=== PATIENT | female | born 1995 | race Caucasian/White ===

== ENCOUNTER 2021-02-06 16:47 | Inpatient (IN) | payer SELFPAY ==
[2021-02-06 16:56] VITALS: BP 133/83; PULSE 96; RESP 17; TEMP 37; O2SAT 98; BMI 20.9
[2021-02-06 17:43] LABS: Basophils # 0.1 10^3/uL (0.0-0.1); Basophils % 0.8 %; Eosinophils # 0.2 10^3/uL (0.0-0.8); Eosinophils % 1.8 %; Hematocrit 41.3 % (37.0-47.0); Lymphocytes # 1.4 10^3/uL (0.8-4.8); Lymphocytes % 17.2 %; Mean Corpuscular HGB Conc 33.9 g/dL (30.0-36.0); Mean Corpuscular Hemoglobin 31.6 pg (28.0-34.0); Mean Corpuscular Volume 93.2 fL (81-99); Monocytes # 0.7 10^3/uL (0.2-0.9); Monocytes % 8.1 %; Neutrophils # 5.94 10^3/uL (1.8-7.7); Neutrophils % 71.9 %; Nucleated Red Blood Cells % 0 %; Platelet Count 219 10^3/cmm (130-400); Red Blood Count 4.43 10^6/uL (4.1-5.3); Red Cell Distribution Width 11.3 % (12.1-15.1); White Blood Count 8.3 10^3/uL (4.0-10.0)
[2021-02-06 18:13] LABS: Alanine Aminotransferase 14 U/L (0-33); Albumin Level 4.8 g/dL (3.5-5.2); Alkaline Phosphatase 51 IU/L (35-105); Aspartate Amino Transferase 19 U/L (0-32); Blood Urea Nitrogen 14 mg/dL (6-20); Calcium 9.2 mg/dL (8.5-10.5); Carbon Dioxide 28 mmol/L (22-29); Chloride 99 mmol/L (98-107); Globulin 2.8 g/dL (1.3-4.6); Glomerular Filtration Rate 101.1 mL/min (90-130); Glucose 87 mg/dL (65-115); Osmolality Calculated 286 mOsm/kg (285-295); Sodium 138 mmol/L (136-145); Thyroid Stimulating Hormone 1.05 uIU/mL (0.27-4.20); Total Bilirubin 2.1 mg/dL (0.15-1.2); Total Protein 7.6 g/dL (6.6-8.7)
[2021-02-06 18:15] LABS: Acetaminophen < 5.0 ug/mL (10-30); Alcohol Level < 10 mg/dL (0-10); Salicylate < 0.3 mg/dL (3-10)
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
[2021-02-06 20:01] LABS: Add Urine Microscopic? NO; Charge for UA Resulting for Rev
[2021-02-06 20:02] LABS: Urine Appearance Clear (CLEAR); Urine Color Yellow (Yellow)
[2021-02-06 20:03] LABS: Bilirubin Urine Neg (Negative); Blood Urine Neg (Negative); Glucose Urine UA Norm (Normal); HCG Qualitative Urine. Negative (Negative); Ketones Urine 1+ (Negative); Leukocyte Esterase Urine Negative (Negative); Nitrate Urine Negative (Negative); Protein Urine Neg (Negative); Specific Gravity, Urine 1.005 (1.005-1.030); Urobilinogen Urine Norm (Negative); pH Urine 7 (5-7)
[2021-02-06 20:52] VITALS: BP 127/79; PULSE 83; RESP 16; TEMP 36.8; O2SAT 100
[2021-02-06 21:18] VITALS: BP 128/89; PULSE 83; RESP 17; TEMP 36.6; O2SAT 100
[2021-02-06 22:00] VITALS: BP 128/89; PULSE 83; RESP 17; TEMP 36.6; O2SAT 100
[2021-02-06] MEDS: acetaminophen 325 mg Tablet 650 MG PO (22:34)
[2021-02-06 22:53] LABS: Amphetamines Screen Urine Negative (Negative); Barbiturates Screen Urine Negative (Negative); Benzodiazepines Screen Urine Negative (Negative); Cocaine Screen Urine Negative (Negative); Opiate Screen Urine Negative (Negative); PCP Screen Urine Negative (Negative); THC Screen Urine Negative (Negative)
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
--- NOTE | 2021-02-07 04:45 | PC.NURSE ---
bEHAVIOR PT CALLED HER , BECAME TEARFUL, ENDED THE CALL. PT REQUESTED TYLENOL FOR A MILD HEADACHE, MED NURSE NOTIFIED. SHE RECEIVED MEDICATION ACCORDINGLY. SHE WENT TO BED AND SLEPT SOUNDLY ALL EVENING.
[2021-02-07 06:00] VITALS: BP 104/64; PULSE 78; RESP 15; TEMP 36.8; O2SAT 98
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
[2021-02-07 12:48] VITALS: O2SAT 98
[2021-02-07 12:51] VITALS: PULSE 79; RESP 16; O2SAT 98
[2021-02-07 14:00] VITALS: BP 113/72; PULSE 77; RESP 16; TEMP 37.6; O2SAT 99
[2021-02-07 19:56] VITALS: BP 110/72; PULSE 84; RESP 18; TEMP 37.2; O2SAT 98
[2021-02-07 22:50] VITALS: PULSE 71; RESP 18; O2SAT 98
[2021-02-08 06:00] VITALS: BP 109/67; PULSE 75; RESP 16; TEMP 36.8; O2SAT 98
[2021-02-08 09:33] VITALS: PULSE 85; RESP 18; O2SAT 99
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
[2021-02-08 09:56] VITALS: BP 109/67; PULSE 85; RESP 18; TEMP 37.1; O2SAT 99
== END 2021-02-08 10:12 | disposition home or self-care (01) | DRG 882 ==
LOC: ER 19:48 → NP 20:25
PROVIDERS: Admitting Provider Psychiatry & Neurology Psychiatry; Emergency Provider Family Medicine; Visit Provider Psychiatry & Neurology Psychiatry
DX: F43.25 Adjustment disorder with mixed disturbance of emotions and conduct (principal); R45.851 Suicidal ideations; F12.90 Cannabis use, unspecified, uncomplicated; Z62.810 Personal history of physical and sexual abuse in childhood; Z81.8 Family history of other mental and behavioral disorders; F10.10 Alcohol abuse, uncomplicated; Z63.0 Problems in relationship with spouse or partner
CPT/HCPCS: 80053; 80306; 80307; 81003; 81025; 84443; 85025; 94664; 99285

== ENCOUNTER 2021-10-02 17:01 | Emergency (ER) | payer MEDICAID, SELFPAY ==
[2021-10-02 17:11] VITALS: BP 138/74; PULSE 86; RESP 16; TEMP 36.8; O2SAT 99; BMI 20.9
--- NOTE | 2021-10-02 17:26 | W.ED.ABDPA2 ---
HPI - Abdominal Pain General: Chief Complaint: Abdominal Pain Stated Complaint: Possible UTI with back and stomach pain Time Seen by Provider: 10/02/21 17:25 Source: patient Mode of arrival: ambulatory Limitations: no limitations History of Present Illness: Patient is a 25-year-old female presents to ED today concerned she could have a UTI. Patient tells me several days ago she began having urinary urgency and hesitancy as well as suprapubic pressure. Patient states she began taking Azo but states her symptoms have not improved. She now has some lower left-sided back pain. Patient has not had any fevers. She admits to chronic intermittent nausea and vomiting that she has had for several months now-has not seen PCP for this-has not had any recent vomiting. She has not noticed any changes to her bowel movements. Patient has had a history of tubal ligation for sterilization purposes. Patient has not had any vaginal bleeding or vaginal discharge. MD elicited complaint: abdominal pain Onset (ago): day(s) Location: Suprapubic Quality: fullness Radiation: back Exacerbating factors: other (urinating) Relieving factors: nothing Associated Symptoms: Reports nausea and vomiting; Denies change in bowel habits, chills, dysuria, fever(s), hematochezia, hematemesis and melena Related Data: Patient : No Review of Systems Const: Denies: fever(s), chills, body aches, fatigue or malaise Card: Denies: chest pain Resp: Denies: dyspnea GI: Reports: abdominal pain, nausea and vomiting; Denies: hematemesis, change in bowel habits, hematochezia or melena : Reports: flank pain, difficulty voiding, urinary urgency and urinary hesitancy; Denies: dysuria, dribbling, oliguria, urinary incontinence, vaginal odor, vaginal bleeding or vaginal discharge Musc: Reports: back pain; Denies: neck pain, extremity pain or joint pain Skin/Breast: Denies: rash Neuro: Denies: headache(s), numbness in extremities, weakness in extremities, sensory changes or dizziness [facility] ED PFSH: Medical History (Updated 10/02/21 @ 18:43 by MICHAEL Macias) Depression Family History Father Bipolar disorder with depression Sister Bipolar disorder with depression Mother Anxiety Depression Social History Alcohol intake: current Alcohol intake frequency: few times a week Alcohol type: beer, wine and hard liquor Desire information about alcohol rehabilitation?: Yes (USING IT TO COPE) Counseling given: Yes (PT NEEDS COPING SKILLS ) Last alcohol use date: 02/05/21 Other details last alcohol use: STARTED DRINKING ON 08/02/20 WHEN HER FATHER Desire information about substance/drug rehabilitation?: No Counseling given: No Adopted: No Caregiver/support person: No Lives independently: Yes Household members: spouse, family and children Housing: House Marital status: Marital status details: HAVING MARITAL ISSUES Number of children: 2 Highest education level completed: High School Graduate service: No Current occupational status: unemployed 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 Pets and animals: No History of recent travel: No Leisure activites: fishing Sexually active: Yes How many partners: 1 Are you practicing safe sex: No ( ) Current gender identity: Female Special shivam needs: No Agree to transfusion: Yes Financial difficulty paying for basics: Hard Physical Exam Const: COMMON NORMALS: no acute distress, average body habitus, patient oriented x3, no limitations, healthy appearing, alert and well nourished Resp: COMMON NORMALS: normal respiratory effort and clear to auscultation bilaterally AUSCULTATION: clear to auscultation bilaterally Cardio: COMMON NORMALS: regular rate and regular rhythm RATE: regular rate RHYTHM: regular rhythm GI: COMMON NORMALS: Normal to inspection, nondistended, normoactive bowel sounds present, Soft to palpation, No hepatosplenomegaly present and no masses INSPECTION: Yes normal to inspection PALPATION: Yes Soft to palpation, Yes Tenderness to palpation present (GI) (lower abdomen-no rigidity or guarding) and Yes No hepatosplenomegaly present : COMMON NORMALS: Yes no CVA tenderness BLADDER/KIDNEY EXAM: Yes no CVA tenderness Back/Pelvis: COMMON NORMALS: no CVA tenderness THORACIC SPINE/UPPER BACK: Yes normal to inspection, Yes thoracic ROM normal and No thoracic spinal tenderness LUMBAR SPINE/LOWER BACK: No lumbar spinal tenderness, Yes paraspinal muscle tenderness and No paraspinal muscle spasm PELVIS: Yes buttocks normal SACROILIAC JOINTS: Yes SI joints normal OTHER: tenderness to L lower back Extremity: COMMON NORMALS: normal to inspection GENERAL: Yes normal exam except as noted Neuro: COMMON NORMALS: patient oriented x3, moves all extremities, no focal motor deficits, no sensory deficits noted and gait normal SENSORIUM/ORIENTATION: Yes alert Skin: COMMON NORMALS: no rashes or lesions noted GENERAL SKIN EXAM: no rashes or lesions noted Course Vital Signs: Vital signs: Vital Signs Temperature 98.3 F 10/02/21 17:11 Pulse Rate 86 10/02/21 17:11 Respiratory Rate 16 10/02/21 17:11 Blood Pressure 138/74 10/02/21 17:11 Pulse Oximetry 99 10/02/21 17:11 MDM - Abdominal Pain Medical Decision Making Patient is a 25-year-old female here for concerns of urinary symptoms and concern for UTI. Patient's vital signs are normal. White count is 13.4. Remainder of blood work is unremarkable. UA does show findings consistent with acute cystitis. Patient states she is starting to develop some left-sided back pains. At this point we will go ahead and treat her for possible early pyelonephritis. She was given IV Rocephin here and will be sent home with ciprofloxacin twice daily x7 days. Strict return ED precautions verbally given to patient. Lab Data : 10/02/21 17:40 10/02/21 17:40 Labs/Radiology: Laboratory Results WBC 13.4 10^3/uL (4.0-10.0) H 10/02/21 17:40 RBC 4.33 10^6/uL (4.1-5.3) 10/02/21 17:40 Hgb 13.8 g/dL (11.5-15.3) 10/02/21 17:40 Hct 40.0 % (37.0-47.0) 10/02/21 17:40 MCV 92.4 fl (81-99) 10/02/21 17:40 MCH 31.9 pg (28.0-34.0) 10/02/21 17:40 MCHC 34.5 g/dL (30.0-36.0) 10/02/21 17:40 RDW 11.1 % (12.1-15.1) L 10/02/21 17:40 Plt Count 230 10^3/cmm (130-400) 10/02/21 17:40 MPV 11.8 fL (7.4-10.4) H 10/02/21 17:40 Neut % (Auto) 76.5 % 10/02/21 17:40 Lymph % (Auto) 15.1 % 10/02/21 17:40 [place] % (Auto) 6.1 % 10/02/21 17:40 Eos % (Auto) 1.4 % 10/02/21 17:40 Baso % (Auto) 0.5 % 10/02/21 17:40 Neut # (Auto) 10.24 10^3/uL (1.8-7.7) H 10/02/21 17:40 Lymph # (Auto) 2.0 10^3/uL (0.8-4.8) 10/02/21 17:40 [place] # (Auto) 0.8 10^3/uL (0.2-0.9) 10/02/21 17:40 Eos # (Auto) 0.2 10^3/uL (0.0-0.8) 10/02/21 17:40 Baso # (Auto) 0.1 10^3/uL (0.0-0.1) 10/02/21 17:40 Nucleated RBC % (auto) 0 % 10/02/21 17:40 Nucleated RBCs # 0.0 /100WBC 10/02/21 17:40 Sodium 139 mmol/L (136-145) 10/02/21 17:40 Potassium 4.0 mmol/L (3.5-5.1) 10/02/21 17:40 Chloride 101 mmol/L (98-107) 10/02/21 17:40 Carbon Dioxide 25 mmol/L (22-29) 10/02/21 17:40 Anion Gap 17.0 (5-19) 10/02/21 17:40 BUN 12 mg/dL (6-20) 10/02/21 17:40 Creatinine 0.7 mg/dL (0.5-0.9) 10/02/21 17:40 GFR Calculation 101.1 mL/min (90-130) 10/02/21 17:40 Glucose 103 mg/dL (65-115) 10/02/21 17:40 Calculated Osmolality 288 mOsm/kg (285-295) 10/02/21 17:40 Calcium 9.4 mg/dL (8.5-10.5) 10/02/21 17:40 Total Bilirubin 1.8 mg/dL (0.15-1.2) H 10/02/21 17:40 AST 20 U/L (0-32) 10/02/21 17:40 ALT 14 U/L (0-33) 10/02/21 17:40 Alkaline Phosphatase 55 IU/L (35-105) 10/02/21 17:40 Total Protein 7.3 g/dL (6.6-8.7) 10/02/21 17:40 Albumin 4.8 g/dL (3.5-5.2) 10/02/21 17:40 Globulin 2.5 g/dL (1.3-4.6) 10/02/21 17:40 Lipase 19 U/L (13-60) 10/02/21 17:40 HCG, Qual Negative (Negative) 10/02/21 17:40 Urine Color [place] (Yellow) 10/02/21 17:34 Urine Appearance Cloudy (CLEAR) 10/02/21 17:34 Urine pH 6 (5-7) 10/02/21 17:34 Ur Specific [place] 1.015 (1.005-1.030) 10/02/21 17:34 Urine Protein 3+ (Negative) H 10/02/21 17:34 Urine Glucose (UA) Norm (Normal) 10/02/21 17:34 Urine Ketones Negative (Negative) 10/02/21 17:34 Urine Blood 3+ (Negative) H 10/02/21 17:34 Urine Nitrate Positive (Negative) H 10/02/21 17:34 Urine Bilirubin 2+ (Negative) H 10/02/21 17:34 Urine Urobilinogen 4+ mg/dL (Negative) H 10/02/21 17:34 Ur Leukocyte Esterase 2+ (Negative) H 10/02/21 17:34 Urine RBC Too numerous to cnt /hpf (0-2) H 10/02/21 17:34 Urine WBC Too numerous to cnt /hpf (0-5) H 10/02/21 17:34 Ur Squamous Epith Cells 0-4 /hpf (0-5) H 10/02/21 17:34 Amorphous Sediment Not Reportable 10/02/21 17:34 Urine Bacteria 1+ /hpf (NONE) H 10/02/21 17:34 Discharge Plan Discharge Patient Disposition: Home Clinical Impression: UTI (urinary tract infection) Qualifiers: Urinary tract infection type: acute cystitis Hematuria presence: with hematuria Qualified Code(s): N30.01 - Acute cystitis with hematuria Condition: Stable Prescriptions: New Cipro 500 mg tablet 500 mg PO Q12H Qty: 14 0RF No Action magnesium 250 mg Tablet 250 mg PO DAILY 0RF ProAir HFA 90 mcg/actuation Hfa Aerosol Inhaler 2 puff INHALATION Q6H PRN (Reason: ASTHMA) 0RF Label Comments: HAS NOT NEEDED THIS SINCE OCTOBER 2019 FOR HER ASTHMA Discharge Orders: Discharge ED (Routine); Ordered 10/02/21 Ordered By: Fanta Campbell Patient Instructions: Urinary Tract Infection in Women (DC) Activity Restrictions/Additional Instructions: You need to start antibiotics immediately. You may continue Azo as needed for burning. Please drink plenty of fluids. You need to return to the emergency department for worsening pain, severe flank pain, repetitive episodes of vomiting, inability to hold down your antibiotics, fevers greater than 100.4, generally feeling unwell, or any other concerns you may have. I hope you begin to feel better soon. Coding Level of Care Code ED Principal Technical Writer for [employer] Exam Comprehensive
[2021-10-02 18:04] LABS: Basophils # 0.1 10^3/uL (0.0-0.1); Basophils % 0.5 %; Eosinophils # 0.2 10^3/uL (0.0-0.8); Eosinophils % 1.4 %; Hemoglobin 13.8 g/dL (11.5-15.3); Lymphocytes % 15.1 %; Mean Corpuscular HGB Conc 34.5 g/dL (30.0-36.0); Mean Corpuscular Hemoglobin 31.9 pg (28.0-34.0); Mean Corpuscular Volume 92.4 fl (81-99); Mean Platelet Volume 11.8 fL (7.4-10.4); Monocytes # 0.8 10^3/uL (0.2-0.9); Monocytes % 6.1 %; Neutrophils # 10.24 10^3/uL (1.8-7.7); Neutrophils % 76.5 %; Nucleated Red Blood Cells % 0 %; Platelet Count 230 10^3/cmm (130-400); Red Blood Count 4.33 10^6/uL (4.1-5.3); Red Cell Distribution Width 11.1 % (12.1-15.1); White Blood Count 13.4 10^3/uL (4.0-10.0)
[2021-10-02 18:16] LABS: Bilirubin Urine 2+ (Negative); Blood Urine 3+ (Negative); Glucose Urine UA Norm (Normal); Ketones Urine Negative (Negative); Leukocyte Esterase Urine 2+ (Negative); Nitrate Urine Positive (Negative); Protein Urine 3+ (Negative); Specific Gravity, Urine 1.015 (1.005-1.030); Urine Appearance Cloudy (CLEAR); Urine Color Orange (Yellow); Urobilinogen Urine 4+ mg/dL (Negative); pH Urine 6 (5-7)
[2021-10-02 18:16] LABS: HCG, Serum Qual Negative (Negative)
[2021-10-02 18:17] LABS: Add Urine Culture? Yes; Add Urine Microscopic? YES; Bacteria Urine 1+ /hpf; RBC Urine TOO NUMEROUS TO CNT /hpf (0-2); Squamous Epithelial Cell Urine 0-4 /hpf (0-5); WBC Urine TOO NUMEROUS TO CNT /hpf (0-5)
[2021-10-02 18:33] LABS: Alanine Aminotransferase 14 U/L (0-33); Albumin Level 4.8 g/dL (3.5-5.2); Alkaline Phosphatase 55 IU/L (35-105); Aspartate Amino Transferase 20 U/L (0-32); Blood Urea Nitrogen 12 mg/dL (6-20); Calcium 9.4 mg/dL (8.5-10.5); Carbon Dioxide 25 mmol/L (22-29); Chloride 101 mmol/L (98-107); Globulin 2.5 g/dL (1.3-4.6); Glomerular Filtration Rate 101.1 mL/min (90-130); Glucose 103 mg/dL (65-115); Lipase 19 U/L (13-60); Osmolality Calculated 288 mOsm/kg (285-295); Sodium 139 mmol/L (136-145); Total Bilirubin 1.8 mg/dL (0.15-1.2); Total Protein 7.3 g/dL (6.6-8.7)
[2021-10-02] MEDS: cefTRIAXone 1,000 MG in sodium chloride 0.9% (plus) 50 ML 100 MG IV (18:44)
[2021-10-02 19:24] VITALS: BP 105/71; PULSE 71; RESP 16; O2SAT 100
== END 2021-10-02 19:25 | disposition home or self-care (01) ==
PROVIDERS: Emergency Provider Physician Assistant
DX: N30.01 Acute cystitis with hematuria (principal)
CPT/HCPCS: 80053; 81001; 83690; 84703; 85025; 87077; 87086; 87186; 96365; 99284; J0696

== ENCOUNTER 2021-11-09 13:49 | Inpatient (IN) | payer MEDICAID, SELFPAY ==
[2021-11-09] VITALS (16 sets, daily range): BP systolic 96–128; BP diastolic 52–81; PULSE 94–127; RESP 14–24; TEMP 37.5–38.7; O2SAT 90–100; BMI 19.2; BMI 20.9
--- NOTE | 2021-11-09 13:53 | ED_ITS ---
HPI - Syncope General: Chief Complaint: Weakness Stated Complaint: NEAR SYNCOPE Time Seen by Provider: 11/09/21 13:52 History of Present Illness: Ms. 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 She reports symptom onset approximately 10 AM today and was subacute. She describes feeling shakes, stiffness, muscle spasms, and rapid heart rate. She endorses associated mild confusion though no other focal deficits. She notes feeling marked unwellness. Intensity symptoms is moderate to severe and has persisted. She does have sick contacts with flu but denies respiratory symptoms herself. Denies similar episodes of severe in the past. No other specific changes in health, exacerbating, or alleviating factors identified. Onset (ago): hour(s) Review of Systems General: Reports: 10 or more systems reviewed and unremarkable except in HPI and below PFSH ED PFSH: Medical History Anxiety and depression Asthma Depression Gitelman syndrome Grief Suicidal behavior with attempted self-injury Surgical History H/O tubal ligation Family History Father Bipolar disorder with depression Sister Bipolar disorder with depression Mother Anxiety Depression Social History Alcohol intake: current Alcohol intake frequency: few times a week Alcohol type: beer, wine and hard liquor Desire information about alcohol rehabilitation?: Yes (USING IT TO COPE) Counseling given: Yes (PT NEEDS COPING SKILLS ) Last alcohol use date: 02/05/21 Other details last alcohol use: STARTED DRINKING ON 08/02/20 WHEN HER FATHER PA SSED AWAY Desire information about substance/drug rehabilitation?: No Counseling given: No Adopted: No Caregiver/support person: No Lives independently: Yes Household members: spouse, family and children Housing: House Marital status: Marital status details: HAVING MARITAL ISSUES Number of children: 3 Highest education level completed: High School Graduate service: No Current occupational status: unemployed 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 Pets and animals: No History of recent travel: No Leisure activites: fishing Sexually active: Yes How many partners: 1 Are you practicing safe sex: No ( ) Current gender identity: Female Special shivam needs: No Agree to transfusion: Yes Financial difficulty paying for basics: Hard Physical Exam Const: COMMON NORMALS: patient oriented x3 and alert GENERAL APPEARANCE: cooperative, well developed and ill appearing HENMT: COMMON NORMALS: normocephalic and atraumatic HEAD & SCALP: normocephalic and atraumatic THROAT: posterior oropharynx normal Eye: COMMON NORMALS: conjunctivae normal CONJUNCTIVA: Yes conjunctivae normal SCLERA: sclerae normal Neck/C-Spine: COMMON NORMALS: supple and no meningeal signs GENERAL: Yes trachea midline Resp: EFFORT & INSPECTION: Yes able to speak in complete sentences AUSCULTATION: diminished lung sounds Cardio: COMMON NORMALS: regular rhythm RATE: tachycardic RHYTHM: regular rhythm GI: COMMON NORMALS: Soft to palpation PALPATION: Yes Soft to palpation and No Tenderness to palpation present (GI) PERCUSSION: normal to percussion Extremity: GENERAL: Yes normal exam except as noted and No edema Neuro: COMMON NORMALS: patient oriented x3, CN's II-XII intact bilaterally, moves all extremities, no focal motor deficits and no sensory deficits noted SENSORIUM/ORIENTATION: Yes alert and No Orientation impaired MENINGEAL SIGNS: Yes no meningeal signs Psych: COMMON NORMALS: mental status grossly normal and Normal thought process present THOUGHT PROCESS: Normal thought process present Course ED course: - Patient was seen and evaluated by me at bedside - Patient placed on cardiac monitors, IV access obtained - Initial evaluation notable for exam as well, ill appearing tachycardic - Labs and xrays personally interpreted by me. EKG at 1749 interpreted by me and notable for sinus tachycardia. No STEMI. -IV fluids ordered - Labs notable for no significant hematologic abnormalities. Metabolic panel likely consistent with mild dehydration. Magnesium 1.6, replenishment ordered. Urinalysis not concerning for urinary tract infection. Rapid Covid and flu negative. D-dimer negative. Troponin negative. (D-dimer and troponin were added after patient felt improved.) - Imaging notable for no lobar consolidation or pneumothorax. - Upon serial reexamination after treatment the patient was similar. Despite 2 L IV fluid resuscitation she remains somewhat ill appearing and has not had significant improvement in heart rate. She becomes more tachycardic with exertion. - Based on patient history, evaluation, and testing as interpreted the most likely cause of the patient's condition is uncertain SIRS criteria - The results of ED evaluation were discussed with the patient including plan for admission due to requirement for level of care not available if discharged to prevent significant worsening/deterioration. - Admitting service was contacted and Dr Ruiz with the hospitalist service agreed to admit the patient - Patient was admitted without further deterioration or significant events. Note: Click bubbles or prepopulated [place] in note writing are used for assistance with data collection and billing and are inherently more limited than narrative and other text portions of this note. Please use narrative for additional clinical history and defer to narrative/free test for any case of contradictory information. If information appears in only free text or click bubble it should be considered present or absent as reported. Please contact note ad copy writer for clarifications of clinical information or contradictory information. MDM is a brief summary, contradictory or erroneous seeming information should be clarified and full note should be reviewed. 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 Patient mild to moderately ill-appearing initially and tachycardic. No acute abnormality identified on ED evaluation to explain symptoms however dragan pite fluid resuscitation patient remains similar. Given unexplained SIRS criteria and overall clinical appearance patient admitted for culture surveillance and further medical management and investigation. Medical Records I reviewed the patient's medical records. Lab Data I reviewed the patient's lab results. : 11/14/21 07:00 11/14/21 05:17 Radiology Impressions Chest X-Ray 11/09/21 19:50 IMPRESSION: No acute findings. Head CT 11/09/21 22:33 IMPRESSION: No acute intracranial abnormality. ASSESSMENT: ASPECTS ([place] Stroke Program Early CT Score) is 10. Head MRI 11/10/21 00:17 IMPRESSION: 1. 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 Findings are highly suspicious for meningitis. No brain abscess. 2. No acute infarct or hemorrhage. 3. Normal size ventricles. Head/Brain Mag Res Venography 11/10/21 00:26 IMPRESSION: 1. Small caliber LEFT transverse sinus and sigmoid sinus. This is probably a normal variant. No thrombus is identified on a recent MRI. 2. No cerebral vein thrombosis identified. Lumbar Puncture Fluoroscopy 11/10/21 02:21 IMPRESSION: Uncomplicated lumbar puncture for CSF. Abdomen Ultrasound 11/13/21 20:00 IMPRESSION: 1. Abnormal gallbladder. Slightly contracted gallbladder with sludge present. There may be small stones within the sludge also. Gallbladder wall is slightly enlarged. Recommend evaluation for possible acute cholecystitis. 2. No bile duct dilatation. 3. Small RIGHT pleural effusion. Laboratory Results WBC 4.8 10^3/uL (4.0-10.0) 11/10/21 05:26 RBC 3.71 10^6/uL (4.1-5.3) L 11/10/21 05:26 Hgb 11.6 g/dL (11.5-15.3) 11/10/21 05:26 Hct 34.7 % (37.0-47.0) L 11/10/21 05:26 MCV 93.5 fl (81-99) 11/10/21 05:26 MCH 31.3 pg (28.0-34.0) 11/10/21 05:26 MCHC 33.4 g/dL (30.0-36.0) 11/10/21 05:26 RDW 11.4 % (12.1-15.1) L 11/10/21 05:26 Plt Count 151 10^3/cmm (130-400) 11/10/21 05:26 MPV 11.7 fL (7.4-10.4) H 11/10/21 05:26 Neut % (Auto) 81.0 % 11/10/21 05:26 Lymph % (Auto) 7.3 % 11/10/21 05:26 [place] % (Auto) 11.1 % 11/10/21 05:26 Eos % (Auto) 0.0 % 11/10/21 05:26 Baso % (Auto) 0.2 % 11/10/21 05:26 Neut # (Auto) 3.88 10^3/uL (1.8-7.7) 11/10/21 05:26 Lymph # (Auto) 0.4 10^3/uL (0.8-4.8) L 11/10/21 05:26 [place] # (Auto) 0.5 10^3/uL (0.2-0.9) 11/10/21 05:26 Eos # (Auto) 0.0 10^3/uL (0.0-0.8) 11/10/21 05:26 Baso # (Auto) 0.0 10^3/uL (0.0-0.1) 11/10/21 05:26 Nucleated RBC % (auto) 0 % 11/10/21 05:26 Nucleated RBCs # 0.0 /100WBC 11/10/21 05:26 ESR < 1 mm/hr (0-15) 11/09/21 17:39 Haptoglobin 73.0 mg/L (30-200) 11/09/21 23:25 D-Dimer 0.30 ug/mIFEU (0-0.59) 11/09/21 17:30 Sodium 135 mmol/L (136-145) L 11/10/21 05:26 Potassium 4.1 mmol/L (3.5-5.1) 11/10/21 05:26 Chloride 104 mmol/L (98-107) 11/10/21 05:26 Carbon Dioxide 19 mmol/L (22-29) L 11/10/21 05:26 Anion Gap 16.1 (5-19) 11/10/21 05:26 BUN 11 mg/dL (6-20) 11/10/21 05:26 Creatinine 0.7 mg/dL (0.5-0.9) 11/10/21 05:26 GFR Calculation 100.4 mL/min (90-130) 11/10/21 05:26 Glucose 101 mg/dL (65-115) 11/10/21 05:26 POC Glucose 89 mg/dL (70-110) 11/09/21 22:35 Calculated Osmolality 280 mOsm/kg (285-295) L 11/10/21 05:26 Lactic Acid 1.0 mmol/L (0.5-2.2) 11/10/21 00:45 Calcium 8.2 mg/dL (8.5-10.5) L 11/10/21 05:26 Magnesium 1.9 mg/dL (1.7-2.3) 11/10/21 05:26 Total Bilirubin 1.4 mg/dL (0.15-1.2) H 11/10/21 05:26 Direct Bilirubin 0.30 mg/dL (0.00-0.30) 11/09/21 17:39 AST 14 U/L (0-32) 11/10/21 05:26 ALT 10 U/L (0-33) 11/10/21 05:26 Alkaline Phosphatase 40 IU/L (35-105) 11/10/21 05:26 Lactate Dehydrogenase 101 U/L (135-214) L 11/09/21 23:25 Troponin T Baseline 6 ng/L (0-10) 11/09/21 17:39 Troponin T 120 Minute 6.00 ng/L (0-10) 11/09/21 19:25 Delta Troponin T Not Reportable 11/09/21 19:25 Troponin T Hi Sens 6Hr 6.00 ng/L (0-10) 11/09/21 23:25 Troponin T Hi Sens 6Hr Delta Not Reportable 11/09/21 23:25 C-Reactive Protein 3.0 mg/L (0.0-4.9) 11/09/21 17:39 Total Protein 6.0 g/dL (6.6-8.7) L D 11/10/21 05:26 Albumin 3.9 g/dL (3.5-5.2) 11/10/21 05:26 Globulin 2.1 g/dL (1.3-4.6) 11/10/21 05:26 TSH 0.64 uIU/mL (0.27-4.20) 11/09/21 14:00 HCG, Qual Negative (Negative) 11/09/21 15:50 Urine Color Straw (Yellow) 11/09/21 15:50 Urine Appearance Clear (CLEAR) 11/09/21 15:50 Urine pH 7 (5-7) 11/09/21 15:50 Ur Specific [place] 1.000 (1.005-1.030) L 11/09/21 15:50 Urine Protein Neg (Negative) 11/09/21 15:50 Urine Glucose (UA) Norm (Normal) 11/09/21 15:50 Urine Ketones Negative (Negative) 11/09/21 15:50 Urine Blood Neg (Negative) 11/09/21 15:50 Urine Nitrate Negative (Negative) 11/09/21 15:50 Urine Bilirubin Neg (Negative) 11/09/21 15:50 Urine Urobilinogen Norm mg/dL (Negative) 11/09/21 15:50 Ur Leukocyte Esterase Negative (Negative) 11/09/21 15:50 CSF Appearance Clear (CLEAR) 11/10/21 13:50 CSF Color Colorless (COLORLESS) 11/10/21 13:50 CSF Specific [place] 1.010 11/10/21 13:50 CSF WBC 1 /uL (0-5) 11/10/21 13:50 CSF RBC 0 10^3/uL (0-0) 11/10/21 13:50 CSF Mononuclear # Auto 0.001 10^3/uL (50-90) L 11/10/21 13:50 CSF Mononuclear WBCs % 100 % (50-90) H 11/10/21 13:50 CSF Polynuclear WBCs # 0.000 10^3/uL (0-10) 11/10/21 13:50 CSF Polynuclear WBCs % 0 % (0-10) 11/10/21 13:50 CSF Glucose 61 mg/dL (40-70) 11/10/21 13:50 CSF Total Protein 40 mg/dL (15-45) 11/10/21 13:50 CSF Immunofixation see note 11/10/21 13:50 CSF/Ser Oligoclon Bands Present (ABSENT) A 11/10/21 13:50 CSF Lyme IgG (Immblot) Cancelled 11/10/21 13:50 CSF Lyme IgG (Immblot) No bands detected 11/10/21 13:50 CSF Lyme IgM (Immblot) Cancelled 11/10/21 13:50 CSF Lyme IgM (Immblot) No bands detected 11/10/21 13:50 CSF Silas Enceph IgG <1:1 11/10/21 13:[address] [place]asha Enc IgM IFA <1:1 11/10/21 13:50 CSF Silas Enceph Intrp See note 11/10/21 13:50 Nasal Influ A H1 2009 PCR Not detected (NOT DETECT) 11/10/21 02:04 Urine Opiates Screen Negative ng/mL (Negative) 11/09/21 15:50 Ur Barbiturates Screen Negative ng/mL (Negative) 11/09/21 15:50 Ur Phencyclidine Scrn Negative ng/mL (Negative) 11/09/21 15:50 Ur Amphetamines Screen Negative ng/mL (Negative) 11/09/21 15:50 U Benzodiazepines Scrn Negative ng/mL (Negative) 11/09/21 15:50 Urine Cocaine Screen Negative ng/mL (Negative) 11/09/21 15:50 U Marijuana (THC) Screen Negative ng/mL (Negative) 11/09/21 15:50 Lyme Ab (Western Blot) <0.90 index 11/09/21 23:25 Lyme IgG Bands Present Cancelled 11/10/21 13:50 Lyme IgG Bands Present Not Reportable 11/10/21 13:50 Lyme IgM Bands Present Cancelled 11/10/21 13:50 Lyme IgM Bands Present Not Reportable 11/10/21 13:50 Coronavirus 229E (PCR) Not detected (NOT DETECT) 11/09/21 20:50 E. chaffeensis IgG Ab <1:64 11/09/21 23:25 E. chaffeensis IgM Ab <1:20 11/09/21 23:25 E. chaffeensis Interp See note 11/09/21 23:25 E. chaffeensis Comment Not Reportable 11/09/21 23:25 West Nile Virus IgG Ab <1.30 index 11/10/21 13:50 West Nile Virus IgM Ab <0.90 index 11/10/21 13:50 Influenza A (H1) PCR Not detected (NOT DETECT) 11/10/21 02:04 Influenza A (H3) PCR Detected (NOT DETECT) A 11/10/21 02:04 Influenza Type A Ag Negative (Negative) 11/09/21 14:40 Influenza Type A (PCR) Detected (NOT DETECT) A 11/10/21 02:04 Influenza Type B Ag Negative (Negative) 11/09/21 14:40 Influenza Type B (PCR) Not detected (NOT DETECT) 11/10/21 02:04 Rickettsia IgG Ab Not detected 11/09/21 23:25 Rickettsia IgM Ab Not detected 11/09/21 23:25 SARS-CoV-2 (PCR) Not detected (NOT DETECT) 11/09/21 20:50 SARS-CoV-2 Ag (Rapid) Negative (Negative) 11/09/21 14:40 Critical Care Time Critical Care Time: Critical Care Time: Yes Total Critical Care Time: 40 Attestation: Due to a high probability of clinically significant, possibly life threatening deterioration, the patient required my highest level of attention and preparedness to intervene emergently and I personally spent this critical care time directly and personally managing the patient. This critical care time included obtaining a history; examining the patient; pulse oximetry; ordering and review of laboratory and imaging studies; arranging urgent treatment with development of a management plan; evaluation of patient's response to treatment; frequent reassessment; and, discussions with other providers as applicable. It was exclusive of separately billable procedures. Primary system involved is cardiovascular Discharge Plan Discharge Patient Disposition: Placed in Observation Admit Provider: Torres Ruiz Clinical Impression: Inappropriate sinus tachycardia Discharge Diet: GI Soft Discharge Activity: Resume usual activity Coding Level of Care Code ED Mother Repairer for Zohaib Ball
[2021-11-09] MEDS: lactated ringers 1,000 ML 999 ML IV ×2 (14:28→17:28)
[2021-11-09 14:38] LABS: Basophils % 0.4 %; Eosinophils # 0.1 10^3/uL (0.0-0.8); Eosinophils % 1.1 %; Hematocrit 38.3 % (37.0-47.0); Hemoglobin 13.2 g/dL (11.5-15.3); Lymphocytes # 0.4 10^3/uL (0.8-4.8); Lymphocytes % 4.2 %; Mean Corpuscular HGB Conc 34.5 g/dL (30.0-36.0); Mean Corpuscular Hemoglobin 31.8 pg (28.0-34.0); Mean Corpuscular Volume 92.3 fl (81-99); Monocytes # 0.9 10^3/uL (0.2-0.9); Monocytes % 9.3 %; Neutrophils # 8.43 10^3/uL (1.8-7.7); Neutrophils % 84.8 %; Nucleated Red Blood Cells % 0 %; Platelet Count 186 10^3/cmm (130-400); Red Blood Count 4.15 10^6/uL (4.1-5.3); Red Cell Distribution Width 11.5 % (12.1-15.1)
[2021-11-09 14:57] LABS: Alanine Aminotransferase 12 U/L (0-33); Albumin Level 4.7 g/dL (3.5-5.2); Alkaline Phosphatase 49 IU/L (35-105); Anion Gap 17.8 (5-19); Aspartate Amino Transferase 17 U/L (0-32); Blood Urea Nitrogen 13 mg/dL (6-20); Calcium 9.6 mg/dL (8.5-10.5); Carbon Dioxide 21 mmol/L (22-29); Chloride 101 mmol/L (98-107); Glucose 108 mg/dL (65-115); Magnesium 1.6 mg/dL (1.7-2.3); Osmolality Calculated 283 mOsm/kg (285-295); Potassium 3.8 mmol/L (3.5-5.1); Sodium 136 mmol/L (136-145); Thyroid Stimulating Hormone 0.64 uIU/mL (0.27-4.20); Total Bilirubin 2.3 mg/dL (0.15-1.2); Total Protein 7.7 g/dL (6.6-8.7)
[2021-11-09 15:12] LABS: SARS Covid-2 Antigen Negative (Negative)
[2021-11-09] MEDS: magnesium sulfate premix 2 GM/50 ML PIGGYBACK IV (15:27)
[2021-11-09 15:29] LABS: Influenza A by IFA Negative (Negative); Influenza B by IFA Negative (Negative)
--- NOTE | 2021-11-09 15:34 | PC.NURSE ---
received report from Haleigh AHUJA
[2021-11-09 16:04] LABS: Add Urine Microscopic? NO; Charge for UA Resulting for Rev; HCG Qualitative Urine. Negative (Negative)
[2021-11-09 16:05] LABS: Urine Appearance Clear (CLEAR); Urine Color Straw (Yellow); pH Urine 7 (5-7)
[2021-11-09 16:06] LABS: Bilirubin Urine Neg (Negative); Blood Urine Neg (Negative); Glucose Urine UA Norm (Normal); Ketones Urine Negative (Negative); Leukocyte Esterase Urine Negative (Negative); Nitrate Urine Negative (Negative); Protein Urine Neg (Negative); Urobilinogen Urine Norm (Negative)
[2021-11-09] MEDS: morphine 4 mg/mL SDV 1 mL IVP (17:40)
[2021-11-09 18:17] LABS: Erythrocyte Sedimentation Rate < 1 mm/hr (0-15)
[2021-11-09 18:32] LABS: Lactic Sepsis W/Reflex 1.9 mmol/L (0.5-2.2)
[2021-11-09 18:33] LABS: Troponin(5th) Baseline 6 ng/L (0-10)
--- NOTE | 2021-11-09 19:50 | XRR_ITS ---
PROCEDURE INFORMATION: Exam: XR Chest Exam date and time: 11/09/2021 7:59 PM Age: 26 years old Clinical indication: Dyspnea; Additional info: Tachycardia TECHNIQUE: Imaging protocol: XR of the chest. Views: 1 view. COMPARISON: No relevant prior studies available. FINDINGS: Lungs: Unremarkable. No consolidation. Pleural spaces: Unremarkable. No pleural effusion. No pneumothorax. Heart/Mediastinum: Unremarkable. No cardiomegaly. Bones/joints: No acute findings. XR/XR chest 1V portable [id number] IMPRESSION: No acute findings.
[2021-11-09] MEDS: ondansetron 2 mg/ML SDV 2 mL 4 MG IVP (21:44)
--- NOTE | 2021-11-09 21:50 | P.HP_ITS ---
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 Denies vomiting or diarrhea. Reports that earlier last month was given a course of antibiotic for possible urinary tract infection by her primary provider at [facility]. At that time states her primary doctor palpated a small lump in the left lower abdomen as well which was thought to be due to constipation. This is since disappeared. She reports that ever since she arrived in ER she also has been having mild cough. In ER she is noted to have low-grade temperature 99.7. She is also found to have persistent sinus tachycardia ranging between 110-125, occasionally up to 140. She has been feeling palpitations. States that she is having some discomfort with deep inspiration. CBC is unremarkable, although with elevated absolute neutrophil count. ESR and CRP are not elevated. D-dimer is normal at 0.3. On CMP noted elevated T bili at 2.3 which is slightly higher than back in September, although similar to February 2021. This appears to be chronically elevated, although in 2018 was normal. Transaminases and alk phos is normal. Magnesium is noted low at 1.6 for which she received replacement. TSH is normal. Baseline and 2-hour troponin is normal. UA unremarkable. Beta hCG negative. Rapid COVID-19 was obtained and was negative, PCR is requested and pending. She has not had vaccination for COVID-19. Review of Systems Const: Reports: chills, body aches, fatigue, malaise and other (Mild VARGAS) Eyes: Denies: change in vision, eye discomfort or eye redness ENMT: Denies: throat pain, oral sores or ear or mastoid pain Card: Denies: chest pain, edema, pre-syncope or dyspnea on exertion Resp: Reports: non-productive cough (mild, just started) and pain on inspiration; Denies: dyspnea, productive cough, change in phlegm color or hemoptysis GI: Reports: nausea; Denies: abdominal pain, vomiting, diarrhea, constipation, hematochezia or melena : Denies: flank pain, urinary frequency or hematuria Musc: Reports: back pain (chronic lower back discomfort) and other (chronic BL knee pain); Denies: joint swelling or joint redness Skin/Breast: Reports: rash (small papules on L side upper pelvis lower flank, no surr erthema, no open ) and other; Denies: new lesions Neuro: Reports: headache(s) (mild); Denies: numbness in extremities, weakness in extremities, dizziness, confusion or seizure-like activity Psych: Reports: anxiety and other (Recently stress in the family) Endo: Denies: polyuria or polydipsia Demetris/Lymph: Denies: easy bleeding or tender lymph nodes All/Imm: Denies: urticaria or tongue swelling Medications/Allergies Home Medications Medication Instructions Recorded Confirmed Last Taken Type albuterol sulfate 90 mcg/actuation 2 puff INHALATION Q6H PRN 02/06/21 11/09/21 11/25/20 12:00 History aerosol inhaler (ProAir HFA) magnesium 250 mg tablet 250 mg PO DAILY 02/06/21 11/09/21 11/09/21 History potassium 99 mg tablet 99 mg PO DAILY 11/09/21 11/09/21 11/08/21 History Allergies Allergy/AdvReac Type Severity Reaction Status Date / Time amoxicillin Allergy Unknown Unknown Verified 02/06/21 17:21 Penicillins Allergy Unknown Verified 11/09/21 13:54 PFSH Acute PFSH: Medical History (Updated 11/09/21 @ 22:19 by Torres Ruiz MD) Anxiety and depression Asthma Depression Gitelman syndrome Grief Suicidal behavior with attempted self-injury Surgical History H/O tubal ligation Family History Father Bipolar disorder with depression Sister Bipolar disorder with depression Mother Anxiety Depression Social History (Updated 11/09/21 @ 21:56 by Torres Ruiz MD) Alcohol intake: current Alcohol intake frequency: few times a week Alcohol type: beer, wine and hard liquor Desire information about alcohol rehabilitation?: Yes (USING IT TO COPE) Counseling given: Yes (PT NEEDS COPING SKILLS ) Last alcohol use date: 02/05/21 Other details last alcohol use: STARTED DRINKING ON 08/02/20 WHEN HER FATHER Desire information about substance/drug rehabilitation?: No Counseling given: No Adopted: No Caregiver/support person: No Lives independently: Yes Household members: spouse, family and children Housing: House Marital status: Marital status details: HAVING MARITAL ISSUES Number of children: 3 Highest education level completed: High School Graduate service: No Current occupational status: unemployed 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 Pets and animals: No History of recent travel: No Leisure activites: fishing Sexually active: Yes How many partners: 1 Are you practicing safe sex: No ( ) Current gender identity: Female Special shivam needs: No Agree to transfusion: Yes Financial difficulty paying for basics: Hard Vitals/I&O/Wt Last Vital Signs Temp 99.5 F 11/09/21 14:06 Pulse 119 H 11/09/21 21:39 Resp 23 H 11/09/21 21:39 BP 115/62 11/09/21 21:39 Pulse Ox 95 11/09/21 21:39 Weight last 48 hrs Weight 58.967 kg Physical Exam Const: COMMON NORMALS: alert GENERAL APPEARANCE: cooperative and anxious ORIENTATION/CONSCIOUSNESS: Yes awake HENMT: COMMON NORMALS: normocephalic, EAC's normal, Normal external nose present and moist oral mucous membranes HEAD & SCALP: normocephalic NOSE: Normal external nose present EXTERNAL AUDITORY CANAL: EAC's normal Neck/C-Spine: COMMON NORMALS: no meningeal signs Chest: CHEST: Yes Symmetrical chest wall rise Resp: COMMON NORMALS: clear to auscultation bilaterally AUSCULTATION: clear to auscultation bilaterally Cardio: COMMON NORMALS: regular rate, regular rhythm and No murmurs present (Cardio) RATE: regular rate RHYTHM: regular rhythm GI: COMMON NORMALS: Normal to inspection, nondistended, normoactive bowel sounds present and Soft to palpation PALPATION: Yes Soft to palpation and Yes Tenderness to palpation present (GI) (Minimal tenderness right upper quadrant) Extremity: COMMON NORMALS: no pedal edema Neuro: COMMON NORMALS: moves all extremities SENSORIUM/ORIENTATION: Yes alert MENINGEAL SIGNS: Yes no meningeal signs OTHER: Kernig and Brudzinski negative. Psych: COMMON NORMALS: mental status grossly normal Skin: COMMON NORMALS: no wounds RASHES: no rashes Data : 11/09/21 14:00 11/09/21 14:00 Micro: Microbiology 11/09/21 17:51 Blood Culture - Preliminary Blood SPECIMEN COLLECTED 11/09/21 17:39 Blood Culture - Preliminary Blood SPECIMEN COLLECTED A&P Assessment and plan (1) Malaise: As of this morning, chills, generalized weakness, malaise, mild headache, nausea, no vomiting or diarrhea. When arriving in ER also notes now having some mild cough. Noted also some tachypnea. Chest x-ray grossly unremarkable. Low- grade temp in ER 99.7. Rapid COVID-19 negative. Rapid influenza negative. Discussed with her possible acute viral illness that may be responsible for her symptoms. COVID-19 PCR requested and pending. Reported having some hypogastric discomfort, although urinalysis is unremarkable. Does report recently completing antibiotic course for UTI with ciprofloxacin, looks like close to about a month ago. We will obtain additional blood studies as below, ultrasound imaging. Provide gentle IV hydration. Antinausea medicine. Minimal papular rash with less than a dozen papules on left posterior lateral upper pelvis/lower flank. No vesicles, no open lesions. Does not appear like shingles at this time, but please reassess. Reports some chronic joint pain in both knees, lower back for which she has been following with her primary provider. Reports previously had a lower back x-ray. Currently no knee swelling, no pain on PROM. Doubt joint infection. ESR and CRP are not elevated to suggest acute flare of inflammatory disorder. Status: Acute (2) Inappropriate sinus tachycardia: I suspect this is due to an acute viral illness, pending COVID-19 PCR. She is having some pleuritic discomfort. Mild cough, mild tachypnea. Nausea, mild headache. Low-grade temp 99.7. Some noted more chronic elevation of T bili, although she does have some mild right upper quadrant discomfort on palpation. Direct bilirubin is ordered. We will request also LDH, haptoglobin. Will image with right upper quadrant ultrasound. With some hypogastric discomfort we will also obtain hypogastric/suprapubic US. She states she also has not eaten anything today. We will give her gentle IV hydration. TSH normal, D-dimer not elevated. Baseline and 2-hour troponin is normal. Place in observation with telemetry for now for above work-up and to monitor for any change in condition. Status: Acute (3) Hyperbilirubinemia: Direct bilirubin, LDH, haptoglobin. Hepatobiliary ultrasound. Status: Acute (4) Hypomagnesemia: Received replacement in ER. Recheck. Status: Acute (5) Gitelman syndrome: Takes magnesium and potassium supplements. Status: Acute (6) Rash: Minimal papular rash with less than a dozen papules on left posterior lateral upper pelvis/lower flank. No vesicles, no open lesions. Does not appear like shingles at this time, but please reassess. Status: Acute Plan Chronic/intermittent lower back ache, knee pain, has been following with her primary provider. States has been aching more recently. Inflammatory markers are not elevated. Monitor for any changes, but otherwise would follow-up with primary provider. Attestations Medical Necessity Statement*: Place in observation for further work-up and monitoring of sudden onset malaise, persistent unexplained sinus tachycardia. 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
--- NOTE | 2021-11-09 22:33 | CTR_ITS ---
PROCEDURE INFORMATION: Exam: CT Head Without Contrast Exam date and time: 11/09/2021 10:45 PM Age: 26 years old Clinical indication: Weakness, extremity; Bilateral; Patient HX: C/O bue numbness - HX of gitelmans; Additional info: Numbness in arms TECHNIQUE: Imaging protocol: Computed tomography of the head without contrast. Radiation optimization: All CT scans at this facility use at least one of these dose optimization techniques: automated exposure control; mA and/or kV adjustment per patient size (includes targeted exams where dose is matched to clinical indication); or iterative reconstruction. Other technique: STROKE PROTOCOL was implemented. COMPARISON: No relevant prior studies available. RADIATION DOSE METRICS: Total DLP (mGy-cm): 875.62 FINDINGS: Brain: Normal. No hemorrhage. Unremarkable white matter. No mass effect. Cerebral ventricles: No ventriculomegaly. Paranasal sinuses: Visualized sinuses are unremarkable. No fluid levels. Mastoid air cells: Visualized mastoid air cells are well aerated. Bones/joints: No acute findings. Soft tissues: Unremarkable. CT/CT head wo con* [id number] IMPRESSION: No acute intracranial abnormality. ASSESSMENT: ASPECTS ([place] Stroke Program Early CT Score) is 10.
--- NOTE | 2021-11-09 22:43 | PC.NURSE ---
ADMIT/STROKE ALERT Pt was received to floor from ER at 2209. Was alert and oriented. security monitor applied. Up to BSC with assist and urinated 700ml. Told me she had felt fine then started hurting in all joints and in low back. Says she does think she passed out at some point because she doesn't remember some things. C/o headache at a 9 and says is seeing spots c/o ligtheadedness/dizziness when up. + nausea. Also c/o starting to have some numbness in fingers on left hand. Temp 101.6 with admit VS. BP 96/54. HR 109. Has rash on left hip and is saying she has had some ticks already. Dr Ruiz was called about temp and numbness. Stated was putting in orders. As on phone with Dr AHUJA who was at bedside doing admission informed me that pt is now c/o numbness all the way up left arm and in lips. Dr Ruiz updated. Went straight to room with RN after talking with and pt was now having difficulty with her speech. Speech slurred and mumbly. Stroke alert called at 2234. Accucheck done and was 89. VS T 100.0, HR 127, BP 125/69, sat 100%.. To CT at 2236
[2021-11-09 22:45] LABS: Glucose Point of Care 89 mg/dL (70-110)
--- NOTE | 2021-11-09 22:51 | ECG_ITS ---
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 Measurements Intervals [place] Rate: 108 P: 68 GA: 156 QRS: 93 QRSD: 106 T: 68 QT: 340 QTc: 458 Interpretive Statements SINUS TACHYCARDIA BORDERLINE RIGHT AXIS DEVIATION [QRS AXIS > 90] INCOMPLETE RIGHT BUNDLE BRANCH BLOCK [90+ ms QRS DURATION, TERMINAL R IN V1/V2, 40+ ms S IN I/aVL/V4/V5/V6] ABNORMAL RHYTHM ECG Compared to ECG 06/24/2018 18:13:52 Incomplete right bundle-branch block now present Sinus rhythm no longer present Electronically Signed On 11-11-2021 9:21:49 CDT by Mason Mcgovern M.D. [id number]
--- NOTE | 2021-11-09 23:02 | PC.NURSE ---
RETURN TO ROOM Returned from CT at 2300. Waiting call from neurologist at [facility]. c/o to c/o numbness in left fingers. No drift. Moving all extremities although does not lift legs far off bed. Says hurts her legs to move then and c/o left leg heaviness. Speech slow but clear and answering questions appropriately except was not sure what day it was.
[2021-11-09] MEDS: doxycycline 100 MG in sodium chloride 0.9% (plus) 100 ML IV (23:17)
--- NOTE | 2021-11-09 23:23 | PC.NURSE ---
UPDATE Is talking with me better now. Continues to c/o severe headache but says the numbness has gone away.
[2021-11-09] MEDS: heparin 5,000 unit/mL INJ 1 mL 5000 UNIT SUBCUT (23:45)
[2021-11-09] MEDS: lactated ringers 1,000 ML 100 ML IV (23:45)
--- NOTE | 2021-11-09 23:46 | PC.PHAR ---
Vancomycin is dosed at 1250mg IVPB every 24 hours to produce a predicted trough level of 14.24 (population based pharmacokinetic analysis). A trough level has been ordered from the lab to be obtained before the fourth dose to confirm and adjust if needed.
[2021-11-10] VITALS (11 sets, daily range): BP systolic 102–119; BP diastolic 59–72; PULSE 73–104; RESP 16–18; TEMP 36.6–37.6; O2SAT 96–100
[2021-11-10 00:09] LABS: Lactate Dehydrogenase 101 U/L (135-214)
[2021-11-10] MEDS: cefTRIAXone 2,000 MG in sodium chloride 0.9% (plus) 50 ML 100 MG IV ×3 (00:09→23:33)
[2021-11-10] MEDS: LORazepam 2 mg/mL INJ 1 mL 0.5 MG IVP (00:09)
--- NOTE | 2021-11-10 00:17 | MR_ITS ---
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 TECHNIQUE: Multiplanar imaging performed through the brain with MultiHance 14 ml's IV. No acute infarcts are seen. Reed-white matter differentiation is well preserved. On the T2 sequences there is mild increased T2 signal within gyri. No susceptibility artifacts or prior lacunar infarcts. Ventricles and extra-axial spaces are normal. Clivus and pituitary gland are normal. Visualized posterior fossa and brainstem are also normal. On the postcontrast images there is mild diffuse meningeal enhancement throughout the brain. This is bilateral. There is also some very mild dural thickening and enhancement which is more pronounced as compared to the prior study from 2011. No abscess identified. No thrombus identified in the dural venous sinuses on this examination. Small caliber LEFT transverse sinus. Paranasal sinuses: Well aerated with no significant disease. Mastoid air cells: Normal. Calvarium and scalp: Normal. MR/MR head wo/w con [id number] IMPRESSION: 1. 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 Findings are highly suspicious for meningitis. No brain abscess. 2. No acute infarct or hemorrhage. 3. Normal size ventricles.
--- NOTE | 2021-11-10 00:26 | MR_ITS ---
WS: [id number] MR VENOGRAPHY HEAD 3-D noncontrast imaging performed through the cerebral veins. All imaging is reviewed. 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 Limited visualization of a small caliber LEFT transverse sinus. This is probably a normal variant. No signal abnormality was noted on a recent MRI or the CT from 11/09/2021. Sigmoid sinuses are normal wit h the LEFT being smaller than the RIGHT. Superior sagittal sinus is intact. Straight sinus is normal. MR/[place] [id number] IMPRESSION: 1. Small caliber LEFT transverse sinus and sigmoid sinus. This is probably a n ormal variant. No thrombus is identified on a recent MRI. 2. No cerebral vein thrombosis identified.
[2021-11-10] MEDS: vancomycin 1,250 MG/250 ML PIGGYBACK 250 MG IV (00:43)
--- NOTE | 2021-11-10 00:52 | PC.NURSE ---
UPDATE Pt has been conversing with me well. Was still c/o severe headache and was having dry heaves. When sure all of neuro symptoms had resolved and stroke completely cleared pt was given the IV Ativan. Is resting now with eyes closed
[2021-11-10 02:04] LABS: Adenovirus Not Detected (NOT DETECT); Chlamydia Pneumoniae Not Detected (NOT DETECT); Coronavirus 229E,HKU1,NL63,OC4 Not Detected (NOT DETECT); Human Metapneumovirus Not Detected (NOT DETECT); Human Rhinovirus/Enterovirus Not Detected (NOT DETECT); Influenza A Detected (NOT DETECT); Influenza A H1 Not Detected (NOT DETECT); Influenza A H1-2009 Not Detected (NOT DETECT); Influenza A H3 Detected (NOT DETECT); Influenza B Not Detected (NOT DETECT); Mycoplasma Pneumoniae Not Detected (NOT DETECT); Parainfluenza Virus Type 1 Not Detected (NOT DETECT); Parainfluenza Virus Type 2 Not Detected (NOT DETECT); Parainfluenza Virus Type 3 Not Detected (NOT DETECT); Parainfluenza Virus Type 4 Not Detected (NOT DETECT); Respiratory Syncytial Virus A Not Detected (NOT DETECT); Respiratory Syncytial Virus B Not Detected (NOT DETECT); SARS-COV-2 Not Detected (NOT DETECT)
[2021-11-10 02:05] LABS: Influenza A Detected (NOT DETECT); Influenza A H1 Not Detected (NOT DETECT); Influenza A H1-2009 Not Detected (NOT DETECT); Influenza A H3 Detected (NOT DETECT); Influenza B Not Detected (NOT DETECT); Results from Genmark
[2021-11-10 02:11] LABS: Amphetamines Screen Urine Negative (Negative); Barbiturates Screen Urine Negative (Negative); Benzodiazepines Screen Urine Negative (Negative); Cocaine Screen Urine Negative (Negative); Opiate Screen Urine Negative (Negative); PCP Screen Urine Negative (Negative); THC Screen Urine Negative (Negative)
--- NOTE | 2021-11-10 02:21 | FL_ITS ---
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 FLUOROSCOPY TIME: 1.8 minutes. # of spot films: 1. Procedure, complications, and risk and benefits explained to the patient. Consent was obtained. Recen t laboratory work and medication are reviewed prior to procedure. Skin over the lumbar is cleansed with ChloraPrep and anesthetized with 1% buffered lidocaine. Access into the thecal sac is achieved. CSF is removed in a sterile manner and placed in the sterile tubes. Approximately 12 ml is removed without difficulty. No complications are encountered. CSF this into the laboratory for analysis as requested. FL/FL guided lumbarpunc dx* [id number] IMPRESSION: Uncomplicated lumbar puncture for CSF.
[2021-11-10] MEDS: acyclovir 500 MG in sodium chloride 0.9% (100 ml) 100 ML 110 MG IV (03:06)
--- NOTE | 2021-11-10 05:35 | PC.NURSE ---
SHIFT UPDATE Has rested well since receiving IV Ativan earlier in shift. Says she still has some headache this morning but is tolerable now No further dry heaves or vomiting. Remains NPO except ice chips. To have procedures today. Afebrile this am as well. 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 IV fluids infusing at 100ml/hr rate. Has received several IV antibiotics since admit.
[2021-11-10 06:06] LABS: Basophils % 0.2 %; Hematocrit 34.7 % (37.0-47.0); Hemoglobin 11.6 g/dL (11.5-15.3); Lymphocytes # 0.4 10^3/uL (0.8-4.8); Lymphocytes % 7.3 %; Mean Corpuscular HGB Conc 33.4 g/dL (30.0-36.0); Mean Corpuscular Hemoglobin 31.3 pg (28.0-34.0); Mean Corpuscular Volume 93.5 fl (81-99); Mean Platelet Volume 11.7 fL (7.4-10.4); Monocytes # 0.5 10^3/uL (0.2-0.9); Monocytes % 11.1 %; Neutrophils # 3.88 10^3/uL (1.8-7.7); Nucleated Red Blood Cells % 0 %; Platelet Count 151 10^3/cmm (130-400); Red Blood Count 3.71 10^6/uL (4.1-5.3); Red Cell Distribution Width 11.4 % (12.1-15.1); White Blood Count 4.8 10^3/uL (4.0-10.0)
[2021-11-10 06:28] LABS: Alanine Aminotransferase 10 U/L (0-33); Albumin Level 3.9 g/dL (3.5-5.2); Alkaline Phosphatase 40 IU/L (35-105); Anion Gap 16.1 (5-19); Aspartate Amino Transferase 14 U/L (0-32); Blood Urea Nitrogen 11 mg/dL (6-20); Calcium 8.2 mg/dL (8.5-10.5); Carbon Dioxide 19 mmol/L (22-29); Chloride 104 mmol/L (98-107); Globulin 2.1 g/dL (1.3-4.6); Glomerular Filtration Rate 100.4 mL/min (90-130); Glucose 101 mg/dL (65-115); Magnesium 1.9 mg/dL (1.7-2.3); Osmolality Calculated 280 mOsm/kg (285-295); Potassium 4.1 mmol/L (3.5-5.1); Sodium 135 mmol/L (136-145); Total Bilirubin 1.4 mg/dL (0.15-1.2)
[2021-11-10] MEDS: heparin 5,000 unit/mL INJ 1 mL 5000 UNIT SUBCUT ×3 (07:53→23:33)
[2021-11-10] MEDS: acetaminophen 325 mg Tablet 650 MG PO ×2 (07:54→19:29)
--- NOTE | 2021-11-10 09:49 | PC.CHAP ---
Pastoral Care Encounter/Spiritual Assessment Type of Contact [] Declined controller operations and hr manager visit [] Patient/Family/Request visit [] Outpatient visit [] Follow-up visit [] Physician referral [] Code/Alert [x] Routine visit [] Staff referral [] Actively dying [] Patient sleeping [] Family support [] [] Out of room [] Palliative care [] [] Receiving care in room [] Pre-surgical visit [] Trauma [] Long length of stay [] ICU visit [] Other:precaution Relational/Emotional Strength [] Patient feels connected with others/family/visitors/staff [] Distress [] Loneliness/isolation [] Abandonment Spirituality of Patient [] Person of Norma [] Attends Nondenominational of their Norma [] Believes in Prayer [] Reads Bible or Cheondoism materials [] There are Spiritual issues to be addressed Sketcher Interventions [] Prayer [] Active listening [] Non-anxious presence [] Spiritual/emotional support [] Crisis/trauma care [] Spiritual counseling [] Bereavement support [] Provided bereavement packet [] Provided Bible/devotional materials [] Provided toy/stuffed animal, coloring book to patient or family member [] Provided Communion [] Anointing/[place] [] Salvation [] Completed spiritual assessment [] Other: Impact on Illness or Injury [] Angry [] Fearful [] Anxious [] Often cries [] Exhaustion [] Unable to work [] Unable to attend jehovah's witness [] Unable to walk/stand [] Unable to read [] Unable to drive [] Unable to eat/drink [] Unable to sleep [] Unable to be with family [] Patient intubated [] Other: Summary Time spent with patient
--- NOTE | 2021-11-10 10:38 | PC.SOCIAL ---
Not triggered to see pt at this time.Per rounds will continue testing today and further workup. May dc in 1-2 days.
[2021-11-10] MEDS: doxycycline 100 MG in sodium chloride 0.9% (plus) 100 ML IV ×2 (11:02→22:45)
[2021-11-10] MEDS: acyclovir 500 MG in sodium chloride 0.9% (plus) 100 ML 110 MG IV ×2 (11:03→18:03)
[2021-11-10] MEDS: lactated ringers 1,000 ML 100 ML IV (11:04)
--- NOTE | 2021-11-10 13:48 | PM.PN ---
Subjective Subjective: Patient was seen this morning, she remains alert oriented x3, denies any numbness, denies any paresthesias, denies any dysphagia, no productive receptive aphasia, no paresthesias, no trouble coordinating, no headache, no blurry vision, no neck pain, currently afebrile, is influenza A positive, Vitals/I&O/Wt Last Vital Signs Temp 98.3 F 11/10/21 11:35 Pulse 73 11/10/21 11:35 Resp 18 11/10/21 11:35 BP 103/63 11/10/21 11:35 Pulse Ox 99 11/10/21 11:35 11/09/21 11/10/21 11/10/21 22:59 06:59 14:59 Intake Total 2050 / 2050 510 / 2560 1000 / 1000 Output Total 700 / 700 1250 / 1250 Balance 1350 / 1350 510 / 1860 -250 / -250 Weight last 48 hrs Weight 64.274 kg Weight 58.967 kg Physical Exam Const: COMMON NORMALS: no acute distress and patient oriented x3 Resp: COMMON NORMALS: normal respiratory effort, No retractions, No use of accessory muscles and clear to auscultation bilaterally AUSCULTATION: clear to auscultation bilaterally Cardio: COMMON NORMALS: regular rate, regular rhythm, S1 normal heart sound present and S2 normal heart sound present RATE: regular rate RHYTHM: regular rhythm HEART SOUNDS: S1 normal heart sound present and S2 normal heart sound present GI: COMMON NORMALS: Normal to inspection, nondistended, normoactive bowel sounds present, Soft to palpation, non-tender and No hepatosplenomegaly present PALPATION: Yes Soft to palpation and Yes No hepatosplenomegaly present Extremity: COMMON NORMALS: no pedal edema Neuro: COMMON NORMALS: patient oriented x3, CN's II-XII intact bilaterally, moves all extremities, no focal motor deficits and no sensory deficits noted Psych: COMMON NORMALS: mental status grossly normal Data : 11/10/21 05:26 11/10/21 05:26 Micro: Microbiology 11/09/21 17:51 Blood Culture - Preliminary Blood SPECIMEN COLLECTED 11/09/21 17:39 Blood Culture - Preliminary Blood SPECIMEN COLLECTED A&P Assessment and plan (1) Influenza A: Status: Acute (2) Malaise: As of this morning, chills, generalized weakness, malaise, mild headache, nausea, no vomiting or diarrhea. When arriving in ER also notes now having some mild cough. Noted also some tachypnea. Chest x-ray grossly unremarkable. Low-grade temp in ER 99.7. Rapid COVID-19 negative. Rapid influenza negative. Discussed with her possible acute viral illness that may be responsible for her symptoms. COVID-19 PCR requested and pending. Reported having some hypogastric discomfort, although urinalysis is unremarkable. Does report recently completing antibiotic course for UTI with ciprofloxacin, looks like close to about a month ago. We will obtain additional blood studies as below, ultrasound imaging. Provide gentle IV hydration. Antinausea medicine. Minimal papular rash with less than a dozen papules on left posterior lateral upper pelvis/lower flank. No vesicles, no open lesions. Does not appear like shingles at this time, but please reassess. Reports some chronic joint pain in both knees, lower back for which she has been following with her primary provider. Reports previously had a lower back x-ray. Currently no knee swelling, no pain on PROM. Doubt joint infection. ESR and CRP are not elevated to suggest acute flare of inflammatory disorder. Status: Acute (3) Inappropriate sinus tachycardia: I suspect this is due to an acute viral illness, pending COVID-19 PCR. She is having some pleuritic discomfort. Mild cough, mild tachypnea. Nausea, mild headache. Low-grade temp 99.7. Some noted more chronic elevation of T bili, although she does have some mild right upper quadrant discomfort on palpation. Direct bilirubin is ordered. We will request also LDH, haptoglobin. Will image with right upper quadrant ultrasound. With some hypogastric discomfort we will also obtain hypogastric/suprapubic US. She states she also has not eaten anything today. We will give her gentle IV hydration. TSH normal, D-dimer not elevated. Baseline and 2-hour troponin is normal. Place in observation with telemetry for now for above work-up and to monitor for any change in condition. Status: Acute (4) Hyperbilirubinemia: Direct bilirubin, LDH, haptoglobin. Hepatobiliary ultrasound. Status: Acute (5) Hypomagnesemia: Received replacement in ER. Recheck. 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 No vesicles, no open lesions. Does not appear like shingles at this time, but please reassess. 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
[2021-11-10] MEDS: gadobenate dimeglumine 20 mL vial IV (15:35)
[2021-11-10 19:05] LABS: CSF Mononuclear # 0.001 10^3/uL (50-90); Mononuclear WBC CSF % 100 % (50-90); Polynuclear WBC CSF % 0 % (0-10); Red Blood Cell CSF 0 10^3/uL (0-0); White Blood Cell CSF 1 /uL (0-5)
[2021-11-10 19:09] LABS: Appearance CSF CLEAR (CLEAR); Color CSF COLORLESS (COLORLESS)
[2021-11-10 19:32] LABS: Glucose CSF 61 mg/dL (40-70); Total Protein CSF 40 mg/dL (15-45)
[2021-11-10] MEDS: oseltamivir phosphate 75 mg Capsule PO (19:32)
[2021-11-10] MEDS: ondansetron 2 mg/ML SDV 2 mL 4 MG IVP (19:44)
[2021-11-10] MEDS: sodium chloride 0.9% (100 ml) 100 ML (23:10)
[2021-11-11] VITALS (9 sets, daily range): BP systolic 101–112; BP diastolic 61–67; PULSE 68–87; RESP 16–18; TEMP 36.6–36.9; O2SAT 96–99
[2021-11-11] MEDS: vancomycin 1,250 MG/250 ML PIGGYBACK 250 MG IV ×3 (00:14→23:10)
--- NOTE | 2021-11-11 01:33 | PC.PHAR ---
Pharmacokinetic dosing service Date: 11/11/2021 Time: 133 Objective: Patient: Lc Jarrell Floor: 251-1 Age: 26 yo Serum creatinine: 0.7 mg/dL Height: 69.0 Inches Weight (kg): 64.274 Diagnosis: Relevant medical/social history: Cultures and sensitivities: Other labs: Assessment: IBW (kg): 66.20 Dosing wt(kg): 64.274 Estimated Creatinine clearance (ml/min): 122.5 CRCL method: Cockcroft and Gault using ibw(default). Drug selected: Vancomycin Loading dose (mg): 0 Vd (liters): 57.8 (factor used: 0.9 L/kg) Juan R (hr-1): 0.106 Half life (hrs): 6.54 Recommended dose: 1250 mg Interval: 12 hrs Infusion time (hrs): 1.5 Predicted peak (mcg/mL): 27.8 Predicted trough (mcg/mL): 9.13 Total body weight is being used for vancomycin dosing. Renal function is stable [ ] /unstable [ ] Recommendations: Give Vancomycin 1250 mg q 12 hrs with an expected Cpeak of 27.8 mcg/ml and an expected Ctrough of 9.13 mcg/ml Renal dosing of other antibiotics (review renal dosing of other medications and list guidelines here): Thank you for the consult, will continue to follow. Signature: Dede Camarillo [facility]
[2021-11-11] MEDS: acyclovir 500 MG in sodium chloride 0.9% (plus) 100 ML 110 MG IV ×3 (02:05→20:00)
[2021-11-11] MEDS: lactated ringers 1,000 ML 100 ML IV ×3 (02:05→15:22)
[2021-11-11] MEDS: acetaminophen 325 mg Tablet 650 MG PO ×2 (04:38→10:46)
[2021-11-11 04:47] LABS: Basophils % 0.3 %; Eosinophils % 0.3 %; Hematocrit 34.9 % (37.0-47.0); Hemoglobin 11.3 g/dL (11.5-15.3); Lymphocytes # 0.8 10^3/uL (0.8-4.8); Lymphocytes % 27.2 %; Mean Corpuscular HGB Conc 32.4 g/dL (30.0-36.0); Mean Corpuscular Hemoglobin 31.7 pg (28.0-34.0); Mean Platelet Volume 11.8 fL (7.4-10.4); Monocytes # 0.5 10^3/uL (0.2-0.9); Monocytes % 16.2 %; Neutrophils # 1.68 10^3/uL (1.8-7.7); Neutrophils % 55.7 %; Nucleated Red Blood Cells % 0 %; Platelet Count 104 10^3/cmm (130-400); Red Blood Count 3.56 10^6/uL (4.1-5.3); Red Cell Distribution Width 11.5 % (12.1-15.1)
[2021-11-11 05:06] LABS: Alanine Aminotransferase 9 U/L (0-33); Albumin Level 3.4 g/dL (3.5-5.2); Alkaline Phosphatase 33 IU/L (35-105); Aspartate Amino Transferase 17 U/L (0-32); Blood Urea Nitrogen 9 mg/dL (6-20); Carbon Dioxide 19 mmol/L (22-29); Chloride 107 mmol/L (98-107); Globulin 2.3 g/dL (1.3-4.6); Glucose 83 mg/dL (65-115); Magnesium 1.6 mg/dL (1.7-2.3); Osmolality Calculated 280 mOsm/kg (285-295); Sodium 136 mmol/L (136-145); Total Bilirubin 0.7 mg/dL (0.15-1.2); Total Protein 5.7 g/dL (6.6-8.7)
[2021-11-11] MEDS: oseltamivir phosphate 75 mg Capsule PO ×2 (06:42→19:00)
[2021-11-11] MEDS: ondansetron 2 mg/ML SDV 2 mL 4 MG IVP (08:30)
[2021-11-11] MEDS: heparin 5,000 unit/mL INJ 1 mL 5000 UNIT SUBCUT ×3 (08:30→23:13)
[2021-11-11] MEDS: magnesium sulfate premix 2 GM/50 ML PIGGYBACK IV (10:40)
--- NOTE | 2021-11-11 12:23 | P.PN_ITS ---
Subjective Subjective: Patient was seen this morning, she had episodes of nausea this morning, but overall feeling weak, no fevers, chills, does have episodes of lightheadedness when she gets up Vitals/I&O/Wt Last Vital Signs Temp 98.3 F 11/11/21 11:25 Pulse 75 11/11/21 11:25 Resp 18 11/11/21 11:25 BP 112/67 11/11/21 11:25 Pulse Ox 98 11/11/21 11:25 11/10/21 11/11/21 11/11/21 22:59 06:59 14:59 Intake Total 710 / 1820 976.667 / 2796.667 50 / 50 Output Total 250 / 1500 Balance 460 / 320 976.667 / 1296.667 50 / 50 Weight last 48 hrs Weight 64.274 kg Weight 58.967 kg Physical Exam Const: COMMON NORMALS: no acute distress and patient oriented x3 Resp: COMMON NORMALS: normal respiratory effort, No retractions, No use of accessory muscles and clear to auscultation bilaterally AUSCULTATION: clear to auscultation bilaterally Cardio: COMMON NORMALS: regular rate, regular rhythm, S1 normal heart sound present and S2 normal heart sound present RATE: regular rate RHYTHM: regular rhythm HEART SOUNDS: S1 normal heart sound present and S2 normal heart sound present GI: COMMON NORMALS: Normal to inspection, nondistended, normoactive bowel sounds present, Soft to palpation and non-tender PALPATION: Yes Soft to palpation Extremity: COMMON NORMALS: no pedal edema Neuro: COMMON NORMALS: patient oriented x3 Psych: COMMON NORMALS: mental status grossly normal Data : 11/11/21 04:35 11/11/21 04:35 Micro: Microbiology 11/10/21 13:50 Gram Stain - Final Cerebrospinal Fluid CSF Culture - Preliminary Cryptococcal Antigen - Final 11/09/21 17:51 Blood Culture - Preliminary Blood NEGATIVE TO DATE 11/09/21 17:39 Blood Culture - Preliminary Blood NEGATIVE TO DATE A&P Assessment and plan (1) Influenza A: Status: Acute (2) Malaise: As of this morning, chills, generalized weakness, malaise, mild headache, nausea, no vomiting or diarrhea. When arriving in ER also notes now having some mild cough. Noted also some tachypnea. Chest x-ray grossly unremarkable. Low- grade temp in ER 99.7. Rapid COVID-19 negative. Rapid influenza negative. Discussed with her possible acute viral illness that may be responsible for her symptoms. COVID-19 PCR requested and pending. Reported having some hypogastric discomfort, although urinalysis is unrema rkable. Does report recently completing antibiotic course for UTI with ciprofloxacin, looks like close to about a month ago. We will obtain additional blood studies as below, ultrasound imaging. Provide gentle IV hydration. Antinausea medicine. Minimal papular rash with less than a dozen papules on left posterior lateral upper pelvis/lower flank. No vesicles, no open lesions. Does not appear like shingles at this time, but please reassess. Reports some chronic joint pain in both knees, lower back for which she has been following with her primary provider. Reports previously had a lower back x-ray. Currently no knee swelling, no pain on PROM. Doubt joint infection. ESR and CRP are not elevated to suggest acute flare of inflammatory disorder. Status: Acute (3) Inappropriate sinus tachycardia: I suspect this is due to an acute viral illness, pending COVID-19 PCR. She is having some pleuritic discomfort. Mild cough, mild tachypnea. Nausea, mild headache. Low-grade temp 99.7. Some noted more chronic elevation of T bili, although she does have some mild right upper quadrant discomfort on palpation. Direct bilirubin is ordered. We will request also LDH, haptoglobin. Will image with right upper quadrant ultrasound. With some hypogastric discomfort we will also obtain hypogastric/suprapubic US. She states she also has not eaten anything today. We will give her gentle IV hydration. TSH normal, D-dimer not elevated. Baseline and 2-hour troponin is normal. Place in observation with telemetry for now for above work-up and to monitor for any change in condition. Status: Acute (4) Hyperbilirubinemia: Direct bilirubin, LDH, haptoglobin. Hepatobiliary ultrasound. Status: Acute (5) Hypomagnesemia: Received replacement in ER. Recheck. 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 No vesicles, no open lesions. Does not appear like shingles at this time, but please reassess. Status: Acute (8) Viral meningitis: Status: Acute Plan Acute encephalopathy/paresthesias/strokelike symptoms -Likely secondary to influenza A and viral meningitis -CSF study shows clear, colorless, 1 WBC, no RBCs, 61 glucose, total protein 40, Gram stain rare white blood cells, no organisms -Cryptococcal antigen negative -CSF studies so far no growth -Blood cultures so far no growth -Viral studies pending -Continue Tamiflu -MRI 1.? 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 Findings are highly suspicious for meningitis. No brain abscess. 2.? No acute infarct or hemorrhage. 3.? Normal size ventricles. -MRA 1.? Small caliber LEFT transverse sinus and sigmoid sinus. This is probably a normal variant. No thrombus is identified on a recent MRI. 2.? No cerebral vein thrombosis identified. -Also significant social issues is related to anxiety, likely her strokelike symptoms are related to anxiety, as her niece who she is taking care of is undergoing transfer for extensive psychiatric evaluation and that has had her really worried Attestations Medical Necessity Statement*: Patient requires hospitalization for viral meningitis, influenza A, inpatient mission, greater than 2 nights Coding Level of Care Code Acute Manager Customs for [facility] Fwd Diagnoses Influenza A J10.1 Malaise R53.81 Inappropriate sinus tachycardia R00.0 Hyperbilirubinemia E80.6 Hypomagnesemia E83.42 Gitelman syndrome E83.42; E87.6 Rash R21 Viral meningitis A87.9
[2021-11-11] MEDS: cefTRIAXone 2,000 MG in sodium chloride 0.9% (plus) 50 ML 100 MG IV (13:53)
[2021-11-11] MEDS: doxycycline 100 MG in sodium chloride 0.9% (plus) 100 ML IV (14:04)
[2021-11-11 15:11] LABS: Lyme AB Screen <0.90 index
[2021-11-11] MEDS: lanolin oint 7 gm 1 APPLIC TOPICAL (15:36)
[2021-11-12] VITALS (9 sets, daily range): BP systolic 102–157; BP diastolic 65–81; PULSE 58–84; RESP 15–21; TEMP 36.5–36.8; O2SAT 96–100
[2021-11-12] MEDS: cefTRIAXone 2,000 MG in sodium chloride 0.9% (plus) 50 ML 100 MG IV (00:16)
[2021-11-12 00:49] LABS: Bacillus cereus group Not Detected (NOT DETECT); Bacillus subtillis group Not Detected (NOT DETECT); Corynebacterium Not Detected (NOT DETECT); Cutibacterium acnes (P.acnes) Not Detected (NOT DETECT); Enterococcus Not Detected (NOT DETECT); Enterococcus faecalis Not Detected (NOT DETECT); Enterococcus faecium Not Detected (NOT DETECT); Lactobacillus species Not Detected (NOT DETECT); Listeria Not Detected (NOT DETECT); Listeria monocytogenes Not Detected (NOT DETECT); Micrococcus Not Detected (NOT DETECT); Pan Candida Not Detected (NOT DETECT); Pan Gram-Negative Not Detected (NOT DETECT); Staphylococcus epidermidis Not Detected (NOT DETECT); Staphylococcus lugdunensis Not Detected (NOT DETECT); Staphylococcus species Not Detected (NOT DETECT); Streptococcus agalactiae Not Detected (NOT DETECT); Streptococcus anginosus group Not Detected (NOT DETECT); Streptococcus pneumoniae Not Detected (NOT DETECT); Streptococcus pyogenes Not Detected (NOT DETECT); Streptococcus species Not Detected (NOT DETECT)
[2021-11-12] MEDS: lactated ringers 1,000 ML 100 ML IV ×3 (01:49→21:49)
[2021-11-12] MEDS: doxycycline 100 MG in sodium chloride 0.9% (plus) 100 ML IV (01:49)
[2021-11-12] MEDS: acyclovir 500 MG in sodium chloride 0.9% (plus) 100 ML 110 MG IV (03:20)
[2021-11-12 05:36] LABS: Basophils % 0.8 %; Eosinophils # 0.1 10^3/uL (0.0-0.8); Eosinophils % 2.5 %; Hemoglobin 10.8 g/dL (11.5-15.3); Lymphocytes # 1.2 10^3/uL (0.8-4.8); Lymphocytes % 49.4 %; Mean Corpuscular HGB Conc 32.7 g/dL (30.0-36.0); Mean Corpuscular Hemoglobin 32.2 pg (28.0-34.0); Mean Corpuscular Volume 98.5 fl (81-99); Mean Platelet Volume 11.9 fL (7.4-10.4); Monocytes # 0.4 10^3/uL (0.2-0.9); Monocytes % 16.6 %; Neutrophils % 30.7 %; Nucleated Red Blood Cells % 0 %; Platelet Count 100 10^3/cmm (130-400); Red Blood Count 3.35 10^6/uL (4.1-5.3); Red Cell Distribution Width 11.6 % (12.1-15.1); White Blood Count 2.4 10^3/uL (4.0-10.0)
[2021-11-12 05:40] LABS: Neutrophils # 0.74 10^3/uL (1.8-7.7)
[2021-11-12 05:46] LABS: Alanine Aminotransferase 9 U/L (0-33); Albumin Level 3.4 g/dL (3.5-5.2); Alkaline Phosphatase 30 IU/L (35-105); Aspartate Amino Transferase 16 U/L (0-32); Blood Urea Nitrogen 5 mg/dL (6-20); Calcium 8.2 mg/dL (8.5-10.5); Carbon Dioxide 22 mmol/L (22-29); Chloride 109 mmol/L (98-107); Globulin 2.2 g/dL (1.3-4.6); Glomerular Filtration Rate 100.4 mL/min (90-130); Glucose 85 mg/dL (65-115); Magnesium 1.7 mg/dL (1.7-2.3); Osmolality Calculated 287 mOsm/kg (285-295); Phosphorus 2.8 mg/dL (2.5-4.5); Sodium 140 mmol/L (136-145); Total Bilirubin 0.4 mg/dL (0.15-1.2); Total Protein 5.6 g/dL (6.6-8.7)
--- NOTE | 2021-11-12 05:49 | PC.NURSE ---
PATIENT ENCOURAGED TO GET IN CHAIR THIS AM. PATIENT VERBALIZED UNDERSTANDING AND SAID SHE WOULD WHEN BREAKFAST CAME.
[2021-11-12] MEDS: oseltamivir phosphate 75 mg Capsule PO ×2 (06:37→18:53)
[2021-11-12] MEDS: heparin 5,000 unit/mL INJ 1 mL 5000 UNIT SUBCUT (07:39)
[2021-11-12] MEDS: acetaminophen 325 mg Tablet 650 MG PO ×2 (07:41→15:10)
[2021-11-12 10:47] LABS: LAB Peripheral Smear Sent for Review
[2021-11-12 11:02] LABS: Lactate Dehydrogenase 88 U/L (135-214)
--- NOTE | 2021-11-12 12:21 | PM.PN ---
Subjective Subjective: Patient was seen this morning, she sitting up in the chair, no fevers, chills, no nausea, vomiting, does complain of some lightheadedness Vitals/I&O/Wt Last Vital Signs Temp 97.7 F 11/12/21 07:13 Pulse 78 11/12/21 07:13 Resp 15 11/12/21 07:13 BP 114/70 11/12/21 07:13 Pulse Ox 100 11/12/21 07:13 11/11/21 11/12/21 11/12/21 22:59 06:59 14:59 Intake Total 553.333 / 2563.333 2550 / 5113.333 1120 / 1120 Output Total 500 / 500 5 / 505 Balance 53.333 / 2063.333 2545 / 4608.333 1120 / 1120 Physical Exam Const: COMMON NORMALS: no acute distress and patient oriented x3 Resp: COMMON NORMALS: normal respiratory effort, No retractions, No use of accessory muscles and clear to auscultation bilaterally AUSCULTATION: clear to auscultation bilaterally Cardio: COMMON NORMALS: regular rate, regular rhythm, S1 normal heart sound present and S2 normal heart sound present RATE: regular rate RHYTHM: regular rhythm HEART SOUNDS: S1 normal heart sound present and S2 normal heart sound present GI: COMMON NORMALS: Normal to inspection, nondistended, normoactive bowel sounds present, Soft to palpation and non-tender PALPATION: Yes Soft to palpation Extremity: COMMON NORMALS: no pedal edema Neuro: COMMON NORMALS: patient oriented x3 Psych: COMMON NORMALS: mental status grossly normal Data : 11/12/21 05:11 11/12/21 05:11 Micro: Microbiology 11/10/21 13:50 Gram Stain - Final Cerebrospinal Fluid CSF Culture - Preliminary Cryptococcal Antigen - Final 11/09/21 17:39 Blood Culture - Preliminary Blood A&P Assessment and plan (1) Influenza A: Status: Acute (2) Malaise: As of this morning, chills, generalized weakness, malaise, mild headache, nausea, no vomiting or diarrhea. When arriving in ER also notes now having some mild cough. Noted also some tachypnea. Chest x-ray grossly unremarkable. Low-grade temp in ER 99.7. Rapid COVID-19 negative. Rapid influenza negative. Discussed with her possible acute viral illness that may be responsible for her symptoms. COVID-19 PCR requested and pending. Reported having some hypogastric discomfort, although urinalysis is unremarkable. Does report recently completing antibiotic course for UTI with ciprofloxacin, looks like close to about a month ago. We will obtain additional blood studies as below, ultrasound imaging. Provide gentle IV hydration. [facility] medicine. Minimal papular rash with less than a dozen papules on left posterior lateral upper pelvis/lower flank. No vesicles, no open lesions. Does not appear like shingles at this time, but please reassess. Reports some chronic joint pain in both knees, lower back for which she has been following with her primary provider. Reports previously had a lower back x-ray. Currently no knee swelling, no pain on PROM. Doubt joint infection. ESR and CRP are not elevated to suggest acute flare of inflammatory disorder. Status: Acute (3) Inappropriate sinus tachycardia: I suspect this is due to an acute viral illness, pending COVID-19 PCR. She is having some pleuritic discomfort. Mild cough, mild tachypnea. Nausea, mild headache. Low-grade temp 99.7. Some noted more chronic elevation of T bili, although she does have some mild right upper quadrant discomfort on palpation. Direct bilirubin is ordered. We will request also LDH, haptoglobin. Will image with right upper quadrant ultrasound. With some hypogastric discomfort we will also obtain hypogastric/suprapubic US. She states she also has not eaten anything today. We will give her gentle IV hydration. TSH normal, D-dimer not elevated. Baseline and 2-hour troponin is normal. Place in observation with telemetry for now for above work-up and to monitor for any change in condition. Status: Acute (4) Hyperbilirubinemia: Direct bilirubin, LDH, haptoglobin. Hepatobiliary ultrasound. Status: Acute (5) Hypomagnesemia: Received replacement in ER. Recheck. 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 No vesicles, no open lesions. Does not appear like shingles at this time, but please reassess. Status: Acute (8) Viral meningitis: Status: Acute Plan Acute encephalopathy/paresthesias/strokelike symptoms -Likely secondary to influenza A and viral meningitis -CSF study shows clear, colorless, 1 WBC, no RBCs, 61 glucose, total protein 40, Gram stain rare white blood cells, no organisms -Cryptococcal antigen negative -CSF studies so far no growth -Blood cultures so far no growth -Viral studies pending -Continue Tamiflu -MRI 1.? 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 Findings are highly suspicious for meningitis. No brain abscess. 2.? No acute infarct or hemorrhage. 3.? Normal size ventricles. -MRA 1.? Small caliber LEFT transverse sinus and sigmoid sinus. This is probably a normal variant. No thrombus is identified on a recent MRI. 2.? No cerebral vein thrombosis identified. - Developing neutropenia, likely secondary to vancomycin stop vancomycin -Neutropenia, will give LDH, haptoglobin, peripheral smear, monitor hemoglobin monitor fever -Cultures so far have been negative, stop Rocephin, stop doxycycline -Stop acyclovir -Also significant social issues is related to anxiety, likely her strokelike symptoms are related to anxiety, as her niece who she is taking care of is undergoing transfer for extensive psychiatric evaluation and that has had her really worried Attestations Medical Necessity Statement*: Patient requires hospitalization and due to neutropenia, influenza a, viral meningitis Coding Level of Care Code Acute Criminal Investigator for valente Ball Diagnoses Influenza A J10.1 Malaise R53.81 Inappropriate sinus tachycardia R00.0 Hyperbilirubinemia E80.6 Hypomagnesemia E83.42 Gitelman syndrome E83.42; E87.6 Rash R21 Viral meningitis A87.9
[2021-11-12] MEDS: TRAMadol 50 mg Tablet 25 MG PO (19:28)
[2021-11-13] VITALS (11 sets, daily range): BP systolic 104–125; BP diastolic 62–81; PULSE 59–73; RESP 12–20; TEMP 36.3–36.8; O2SAT 98–100
[2021-11-13] MEDS: oseltamivir phosphate 75 mg Capsule PO ×2 (05:19→20:08)
[2021-11-13 05:37] LABS: Basophils % 0.8 %; Eosinophils # 0.2 10^3/uL (0.0-0.8); Eosinophils % 6.2 %; Hematocrit 34.6 % (37.0-47.0); Lymphocytes # 1.5 10^3/uL (0.8-4.8); Lymphocytes % 60.9 %; Mean Corpuscular HGB Conc 31.8 g/dL (30.0-36.0); Mean Corpuscular Hemoglobin 31.3 pg (28.0-34.0); Mean Corpuscular Volume 98.6 fl (81-99); Mean Platelet Volume 12.9 fL (7.4-10.4); Monocytes # 0.3 10^3/uL (0.2-0.9); Monocytes % 12.8 %; Neutrophils % 19.3 %; Nucleated Red Blood Cells % 0 %; Platelet Count 98 10^3/cmm (130-400); Red Blood Count 3.51 10^6/uL (4.1-5.3); Red Cell Distribution Width 11.5 % (12.1-15.1); White Blood Count 2.4 10^3/uL (4.0-10.0)
[2021-11-13 05:43] LABS: Neutrophils # 0.47 10^3/uL (1.8-7.7)
[2021-11-13 05:54] LABS: Alanine Aminotransferase 31 U/L (0-33); Albumin Level 3.4 g/dL (3.5-5.2); Alkaline Phosphatase 34 IU/L (35-105); Blood Urea Nitrogen 6 mg/dL (6-20); Calcium 8.5 mg/dL (8.5-10.5); Carbon Dioxide 22 mmol/L (22-29); Chloride 105 mmol/L (98-107); Globulin 2.1 g/dL (1.3-4.6); Glomerular Filtration Rate 119.9 mL/min (90-130); Glucose 86 mg/dL (65-115); Magnesium 1.7 mg/dL (1.7-2.3); Osmolality Calculated 279 mOsm/kg (285-295); Phosphorus 4.2 mg/dL (2.5-4.5); Sodium 136 mmol/L (136-145); Total Bilirubin 0.4 mg/dL (0.15-1.2); Total Protein 5.5 g/dL (6.6-8.7)
[2021-11-13 05:55] LABS: Anion Gap 13.1 (5-19); Aspartate Amino Transferase 43 U/L (0-32); Potassium 4.1 mmol/L (3.5-5.1)
[2021-11-13] MEDS: lactated ringers 1,000 ML 100 ML IV ×2 (08:11→18:31)
[2021-11-13] MEDS: acetaminophen 325 mg Tablet 650 MG PO (09:12)
[2021-11-13] MEDS: ondansetron 2 mg/ML SDV 2 mL 4 MG IVP (09:12)
--- NOTE | 2021-11-13 14:30 | P.PN_ITS ---
Subjective Subjective: Patient was seen this morning, she complains of lightheadedness while standing up, continues to feel nauseous, no specific abdominal pain complaints, no diarrhea, no headache, no blurry vision, remains afebrile Vitals/I&O/Wt Last Vital Signs Temp 97.7 F 11/13/21 07:11 Pulse 72 11/13/21 12:00 Resp 12 11/13/21 12:00 BP 115/67 11/13/21 12:00 Pulse Ox 99 11/13/21 12:00 11/12/21 11/13/21 11/13/21 22:59 06:59 14:59 Intake Total 1105 / 2335 900 / 3235 1000 / 1000 Output Total 0 / 0 Balance 1105 / 2335 900 / 3235 1000 / 1000 Physical Exam Const: COMMON NORMALS: no acute distress and patient oriented x3 Resp: COMMON NORMALS: normal respiratory effort, No retractions, No use of accessory muscles and clear to auscultation bilaterally AUSCULTATION: clear to auscultation bilaterally Cardio: COMMON NORMALS: regular rate, regular rhythm, S1 normal heart sound present and S2 normal heart sound present RATE: regular rate RHYTHM: regular rhythm HEART SOUNDS: S1 normal heart sound present and S2 normal heart sound present GI: COMMON NORMALS: Normal to inspection, nondistended, normoactive bowel sounds present, Soft to palpation, non-tender and No hepatosplenomegaly present PALPATION: Yes Soft to palpation and Yes No hepatosplenomegaly present Extremity: COMMON NORMALS: no pedal edema Neuro: COMMON NORMALS: patient oriented x3 Psych: COMMON NORMALS: mental status grossly normal Data : 11/13/21 05:12 11/13/21 05:12 Micro: Microbiology 11/09/21 17:39 Blood Culture - Preliminary Blood Corynebacterium species 11/10/21 13:50 Gram Stain - Final Cerebrospinal Fluid CSF Culture - Final Cryptococcal Antigen - Final A&P Assessment and plan (1) Neutropenia: Status: Acute (2) Pancytopenia: Status: Acute (3) Influenza A: Status: Acute (4) Malaise: As of this morning, chills, generalized weakness, malaise, mild headache, nausea, no vomiting or diarrhea. When arriving in ER also notes now having some mild cough. Noted also some tachypnea. Chest x-ray grossly unremarkable. Low- grade temp in ER 99.7. Rapid COVID-19 negative. Rapid influenza negative. Discussed with her possible acute viral illness that may be responsible for her symptoms. COVID-19 PCR requested and pending. Reported having some hypogastric discomfort, although urinalysis is unremarkable. Does report recently completing antibiotic course for UTI with ciprofloxacin, looks like close to about a month ago. We will obtain additional blood studies as below, ultrasound imaging. Provide gentle IV hydration. Antinausea medicine. Minimal papular rash with less than a dozen papules on left posterior lateral upper pelvis/lower flank. No vesicles, no open lesions. Does not appear like shingles at this time, but please reassess. Reports some chronic joint pain in both knees, lower back for which she has been following with her primary provider. Reports previously had a lower back x-ray. Currently no knee swelling, no pain on PROM. Doubt joint infection. ESR and CRP are not elevated to suggest acute flare of inflammatory disorder. Status: Acute (5) Inappropriate sinus tachycardia: I suspect this is due to an acute viral illness, pending COVID-19 PCR. She is having some pleuritic discomfort. Mild cough, mild tachypnea. Nausea, mild headache. Low-grade temp 99.7. Some noted more chronic elevation of T bili, although she does have some mild right upper quadrant discomfort on palpation. Direct bilirubin is ordered. We will request also LDH, haptoglobin. Will image with right upper quadrant ultrasound. With some hypogastric discomfort we will also obtain hypogastric/suprapubic US. She states she also has not eaten anything today. We will give her gentle IV hydration. TSH normal, D-dimer not elevated. Baseline and 2-hour troponin is normal. Place in observation with telemetry for now for above work-up and to monitor for any change in condition. Status: Acute (6) Hyperbilirubinemia: Direct bilirubin, LDH, haptoglobin. Hepatobiliary ultrasound. Status: Acute (7) Hypomagnesemia: Received replacement in ER. Recheck. 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 Status: Acute (9) Rash: Minimal papular rash with less than a dozen papules on left posterior lateral upper pelvis/lower flank. No vesicles, no open lesions. Does not appear like shingles at this time, but please reassess. Status: Acute (10) Viral meningitis: Status: Acute Plan Acute encephalopathy/paresthesias/strokelike symptoms -Likely secondary to influenza A and viral meningitis -CSF study shows clear, colorless, 1 WBC, no RBCs, 61 glucose, total protein 40, Gram stain rare white blood cells, no organisms -Cryptococcal antigen negative -CSF studies so far no growth -Blood cultures so far no growth, 1 bottle with cardiovascular species, likely contaminant, will order repeat blood cultures -Viral studies pending -Continue Tamiflu -MRI 1.? 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 Findings are highly suspicious for meningitis. No brain abscess. 2.? No acute infarct or hemorrhage. 3.? Normal size ventricles. -MRA 1.? Small caliber LEFT transverse sinus and sigmoid sinus. This is probably a normal variant. No thrombus is identified on a recent MRI. 2.? No cerebral vein thrombosis identified. 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
[2021-11-13 16:06] LABS: Monoscreen Negative (Negative)
[2021-11-13 17:53] LABS: Lyme Disease AB (IGG),IBL NO BANDS DETECTED; Lyme Disease AB (IGM), IBL NO BANDS DETECTED
--- NOTE | 2021-11-13 20:00 | US_ITS ---
WS: [id number] Complete ABDOMINAL ULTRASOUND HISTORY: Fever and chills, elevated liver function studies. COMPARISON: None available. Liver: 14.3 cm in length. Liver is normal size and echogenicity with no mass or intrahepatic dilatati on. Portal Vein: Normal hepatopetal flow with monophasic waveform. Gallbladder: Gallbladder is slightly contracted. There is mild wall thickening and low-level echoes w ithin the gallbladder. Stones and sludge are present. No adjacent fluid. Gallbladder wall thickness: 0.3 cm. Pancreas: Normal size and echogenicity. CBD: 0.2 cm. Neither kidney was imaged. Spleen: Normal size spleen measuring 11 cm in length. Abdominal aorta and IVC are within normal limits. No ascites. There is a small RIGHT pleural effusion. US/US abdomen complete* [id number] IMPRESSION: 1. Abnormal gallbladder. Slightly contracted gallbladder with sludge present. There may be small stones within the sludge also. Gallbladder wall is slightly enlarged. Recommend evaluation for possible acute cholecystitis. 2. No bile duct dilatation. 3. Small RIGHT pleural effusion.
[2021-11-14 00:23] LABS: West Nile Virus AB (IGG) <1.30 index; West Nile Virus AB (IGM) <0.90 index
[2021-11-14 04:00] VITALS: BP 109/63; PULSE 62; RESP 18; TEMP 36.6; O2SAT 99
[2021-11-14] MEDS: oseltamivir phosphate 75 mg Capsule PO (05:26)
[2021-11-14] MEDS: lactated ringers 1,000 ML 100 ML IV (05:32)
[2021-11-14 05:44] VITALS: PULSE 60
[2021-11-14 05:45] LABS: Alanine Aminotransferase 117 U/L (0-33); Albumin Level 3.7 g/dL (3.5-5.2); Alkaline Phosphatase 40 IU/L (35-105); Blood Urea Nitrogen 9 mg/dL (6-20); Calcium 8.4 mg/dL (8.5-10.5); Carbon Dioxide 22 mmol/L (22-29); Chloride 105 mmol/L (98-107); Globulin 1.8 g/dL (1.3-4.6); Glomerular Filtration Rate 119.9 mL/min (90-130); Glucose 92 mg/dL (65-115); Osmolality Calculated 284 mOsm/kg (285-295); Sodium 138 mmol/L (136-145); Total Bilirubin 0.6 mg/dL (0.15-1.2); Total Protein 5.5 g/dL (6.6-8.7)
[2021-11-14 05:48] LABS: Anion Gap 15.1 (5-19); Aspartate Amino Transferase 138 U/L (0-32); Potassium 4.1 mmol/L (3.5-5.1)
[2021-11-14 07:19] VITALS: BP 119/78; PULSE 76; RESP 16; TEMP 36.7; O2SAT 100
[2021-11-14] MEDS: acetaminophen 325 mg Tablet 650 MG PO (07:37)
[2021-11-14 07:48] LABS: Basophils % 0.7 %; Eosinophils # 0.1 10^3/uL (0.0-0.8); Eosinophils % 3.9 %; Hematocrit 35.2 % (37.0-47.0); Hemoglobin 11.9 g/dL (11.5-15.3); Lymphocytes # 1.7 10^3/uL (0.8-4.8); Lymphocytes % 60.4 %; Mean Corpuscular HGB Conc 33.8 g/dL (30.0-36.0); Mean Corpuscular Hemoglobin 31.6 pg (28.0-34.0); Mean Corpuscular Volume 93.4 fl (81-99); Mean Platelet Volume 12.5 fL (7.4-10.4); Monocytes # 0.2 10^3/uL (0.2-0.9); Monocytes % 8.5 %; Neutrophils % 26.5 %; Nucleated Red Blood Cells % 0 %; Platelet Count 126 10^3/cmm (130-400); Red Blood Count 3.77 10^6/uL (4.1-5.3); Red Cell Distribution Width 11.4 % (12.1-15.1); White Blood Count 2.8 10^3/uL (4.0-10.0)
[2021-11-14 08:27] LABS: Slide Review Slide Review Perform
[2021-11-14 08:29] LABS: Neutrophils # 0.75 10^3/uL (1.8-7.7)
--- NOTE | 2021-11-14 09:53 | P.DS_ITS ---
Discharge Providers Date of Admission: 11/10/21 16:05 Date of Discharge: November 14, 2021 Attending Provider at Admission: Torres Ruiz Attending Provider at Discharge: Santos Prince MD Diagnoses at Discharge Discharge Diagnosis (1) Neutropenia: Status: Acute (2) Pancytopenia: Status: Acute (3) Influenza A: Status: Acute (4) Malaise: Status: Acute (5) Inappropriate sinus tachycardia: Status: Acute (6) Hyperbilirubinemia: Status: Acute (7) Hypomagnesemia: Status: Acute (8) Gitelman syndrome: Status: Acute (9) Rash: Status: Acute (10) Viral meningitis: Status: Acute Reason for Visit Reason for Visit: NEAR SYNCOPE Hospital Course Hospital Course This is a 26-year-old female with a past medical history of Gitelman syndrome who presents [facility] due to feeling unwell, fevers, chills, malaise, headache, nausea Patient was admitted to [facility] for acute encephalopathy, paresthesias, strokelike symptoms likely secondary to influenza A and viral meningitis. She was started on broad-spectrum antibiotic therapy, acyclovir, Tamiflu and clinically monitored. MRI showed mild leptomeningeal enhancement throughout the brain, suspicious for meningitis. MRA no acute findings. CSF studies showed clear, colorless, 1 WBCs, no RBCs, 61 glucose, total protein 40, Gram stain rare white blood cells, no organisms. CSF no growth so far. Cryptococcal antigen negative. Viral studies pending. She was started on Tamiflu, remained afebrile, clinically improved, discharged home. Discharged with 1 remaining day of Tamiflu, continue to monitor fevers, hydrate well, continue facemask, hand washing. Patient developed absolute neutropenia with pancytopenia during her hospitalization, likely secondary to broad-spectrum metabolic therapy vancomycin, and bone marrow suppression. On discharge, her platelet count is improving to 126. Hemoglobin improving to 11.9. Her white blood cell count improving to 2.8, still having neutropenia but improving to 0.75. I have ordered CMV and EBV panel which is pending, follow-up with hematology oncology as outpatient Patient had some degree of persistent nausea during hospitalization, and some degree of nonspecific abdominal pain, but did have some degree of right upper quadrant pain, did develop mild transaminitis, no significant alk phos elevation,abnormal gallbladder. Slightly contracted gallbladder with sludge present. There may be small stones within the sludge also. Gallbladder wall is slightly enlarged. Recommend evaluation for possible acute cholecystitis. No bile duct dilatation. Patient remains afebrile, abdominal pain has resolved, nausea resolved. I will discharge her on 7 days of Cipro and Flagyl. GI soft diet. If she were to have recurrent abdominal pain, nausea, vomiting fevers for the emergency room. Follow-up with Dr. Locke as outpatient. Repeat CMP through primary care provider in 1 week On admission, while patient was admitted to the floors, patient developed numbness of her left arm, that progressed up to numbness around her tongue, also reported numbness of the right hand, difficult to arouse, slurring of words, stroke code was called, CT was negative for acute bleed, and a stroke scale was 4, Bard she was telemetry neurology service was used, patient was found not to be candidate for TPA as there is more of a suspicion for infectious etiology. Patient was monitored with inpatient, no recurrent symptomatology, NIH stroke scale 0, no recurrent numbness, no recurrent slurring of words likely symptomatology from viral meningitis. Physical Exam Const: COMMON NORMALS: no acute distress and patient oriented x3 Resp: COMMON NORMALS: normal respiratory effort, No retractions, No use of accessory muscles and clear to auscultation bilaterally AUSCULTATION: clear to auscultation bilaterally Cardio: COMMON NORMALS: regular rate, regular rhythm, S1 normal heart sound present and S2 normal heart sound present RATE: regular rate RHYTHM: regular rhythm HEART SOUNDS: S1 normal heart sound present and S2 normal heart sound present GI: COMMON NORMALS: Normal to inspection, nondistended, normoactive bowel sounds present, Soft to palpation and non-tender PALPATION: Yes Soft to palpation Extremity: COMMON NORMALS: no pedal edema Neuro: COMMON NORMALS: patient oriented x3 Psych: COMMON NORMALS: mental status grossly normal Discharge Data Studies Completed and Pending Completed Studies During Hospitalization Category Date Time Status CT head wo con* [id number] Stat Cat Scan 11/09/21 22:33 Completed FL guided lumbarpunc dx* [id number] Routine Exams 11/10/21 02:21 Completed XR chest 1V portable [id number] Urgent Exams 11/09/21 19:50 Completed MR head wo/w con [id number] Routine MRI 11/10/21 00:17 Completed MRV [[place] [id number]] Routine MRI 11/10/21 00:26 Completed US abdomen complete* [id number] Routine Ultrasound 11/13/21 20:00 Completed Pending at discharge Category Date Time Status Blood Culture Stat Lab 11/09/21 17:51 Results Blood Culture Stat Lab 11/13/21 16:36 Results CMV IGG&IGM Panel Stat Lab 11/13/21 16:33 Received Complete Blood Count w/Auto AM LABS Lab 11/15/21 04:00 Ordered Comprehensive Metabolic Panel AM LABS Lab 11/15/21 04:00 Ordered EBV IGG & IGM Stat Lab 11/13/21 16:33 Received Heparin Induced Thrombocytopen Stat Lab 11/12/21 11:20 Received Herpes Simplex Virus DNA Stat Lab 11/11/21 13:04 Received Immunofixation, CSF Routine Lab 11/10/21 13:50 Received Oligoclonal Bands IGG, CSF Stat Lab 11/10/21 13:50 Received [place] Enceph.Virus IFA CSF Routine Lab 11/10/21 13:50 Received Tick Panel Routine Lab 11/09/21 23:25 Results Radiology Impressions Chest X-Ray 11/09/21 19:50 IMPRESSION: No acute findings. Head CT 11/09/21 22:33 IMPRESSION: No acute intracranial abnormality. ASSESSMENT: ASPECTS ([place] Stroke Program Early CT Score) is 10. Head MRI 11/10/21 00:17 IMPRESSION: 1. 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 Findings are highly suspicious for meningitis. No brain abscess. 2. No acute infarct or hemorrhage. 3. Normal size ventricles. Head/Brain Mag Res Venography 11/10/21 00:26 IMPRESSION: 1. Small caliber LEFT transverse sinus and sigmoid sinus. This is probably a normal variant. No thrombus is identified on a recent MRI. 2. No cerebral vein thrombosis identified. Lumbar Puncture Fluoroscopy 11/10/21 02:21 IMPRESSION: Uncomplicated lumbar puncture for CSF. Abdomen Ultrasound 11/13/21 20:00 IMPRESSION: 1. Abnormal gallbladder. Slightly contracted gallbladder with sludge present. There may be small stones within the sludge also. Gallbladder wall is slightly enlarged. Recommend evaluation for possible acute cholecystitis. 2. No bile duct dilatation. 3. Small RIGHT pleural effusion. Laboratory Results WBC 2.8 10^3/uL (4.0-10.0) L 11/14/21 07:00 Corrected WBC Cancelled 11/14/21 05:45 RBC 3.77 10^6/uL (4.1-5.3) L 11/14/21 07:00 Hgb 11.9 g/dL (11.5-15.3) 11/14/21 07:00 Hct 35.2 % (37.0-47.0) L 11/14/21 07:00 MCV 93.4 fl (81-99) D 11/14/21 07:00 MCH 31.6 pg (28.0-34.0) 11/14/21 07:00 MCHC 33.8 g/dL (30.0-36.0) D 11/14/21 07:00 RDW 11.4 % (12.1-15.1) L 11/14/21 07:00 Plt Count 126 10^3/cmm (130-400) L 11/14/21 07:00 MPV 12.5 fL (7.4-10.4) H 11/14/21 07:00 Gran % Cancelled 11/14/21 05:45 Neut % (Auto) 26.5 % 11/14/21 07:00 Lymph % (Auto) 60.4 % 11/14/21 07:00 [place] % (Auto) 8.5 % 11/14/21 07:00 Eos % (Auto) 3.9 % 11/14/21 07:00 Baso % (Auto) 0.7 % 11/14/21 07:00 Neut # (Auto) 0.75 10^3/uL (1.8-7.7) L* 11/14/21 07:00 Lymph # (Auto) 1.7 10^3/uL (0.8-4.8) 11/14/21 07:00 [place] # (Auto) 0.2 10^3/uL (0.2-0.9) 11/14/21 07:00 Eos # (Auto) 0.1 10^3/uL (0.0-0.8) 11/14/21 07:00 Baso # (Auto) 0.0 10^3/uL (0.0-0.1) 11/14/21 07:00 Absolute Gran (auto) Cancelled 11/14/21 05:45 Nucleated RBC % (auto) 0 % 11/14/21 07:00 Nucleated RBCs # 0.0 /100WBC 11/14/21 07:00 ESR < 1 mm/hr (0-15) 11/09/21 17:39 Haptoglobin 112.0 mg/L (30-200) 11/12/21 05:11 D-Dimer 0.30 ug/mIFEU (0-0.59) 11/09/21 17:30 Sodium 138 mmol/L (136-145) 11/14/21 05:17 Potassium 4.1 mmol/L (3.5-5.1) 11/14/21 05:17 Chloride 105 mmol/L (98-107) 11/14/21 05:17 Carbon Dioxide 22 mmol/L (22-29) 11/14/21 05:17 Anion Gap 15.1 (5-19) 11/14/21 05:17 BUN 9 mg/dL (6-20) 11/14/21 05:17 Creatinine 0.6 mg/dL (0.5-0.9) 11/14/21 05:17 GFR Calculation 119.9 mL/min (90-130) 11/14/21 05:17 Glucose 92 mg/dL (65-115) 11/14/21 05:17 POC Glucose 89 mg/dL (70-110) 11/09/21 22:35 Calculated Osmolality 284 mOsm/kg (285-295) L 11/14/21 05:17 Lactic Acid 1.0 mmol/L (0.5-2.2) 11/10/21 00:45 Calcium 8.4 mg/dL (8.5-10.5) L 11/14/21 05:17 Phosphorus 4.2 mg/dL (2.5-4.5) 11/13/21 05:12 Magnesium 1.7 mg/dL (1.7-2.3) 11/13/21 05:12 Total Bilirubin 0.6 mg/dL (0.15-1.2) 11/14/21 05:17 Direct Bilirubin 0.30 mg/dL (0.00-0.30) 11/09/21 17:39 AST 138 U/L (0-32) H 11/14/21 05:17 ALT 117 U/L (0-33) H 11/14/21 05:17 Alkaline Phosphatase 40 IU/L (35-105) 11/14/21 05:17 Lactate Dehydrogenase 88 U/L (135-214) L 11/12/21 05:11 Troponin T Baseline 6 ng/L (0-10) 11/09/21 17:39 Troponin T 120 Minute 6.00 ng/L (0-10) 11/09/21 19:25 Delta Troponin T Not Reportable 11/09/21 19:25 Troponin T Hi Sens 6Hr 6.00 ng/L (0-10) 11/09/21 23:25 Troponin T Hi Sens 6Hr Delta Not Reportable 11/09/21 23:25 C-Reactive Protein 3.0 mg/L (0.0-4.9) 11/09/21 17:39 Total Protein 5.5 g/dL (6.6-8.7) L 11/14/21 05:17 Albumin 3.7 g/dL (3.5-5.2) 11/14/21 05:17 Globulin 1.8 g/dL (1.3-4.6) 11/14/21 05:17 TSH 0.64 uIU/mL (0.27-4.20) 11/09/21 14:00 HCG, Qual Negative (Negative) 11/09/21 15:50 Urine Color Straw (Yellow) 11/09/21 15:50 Urine Appearance Clear (CLEAR) 11/09/21 15:50 Urine pH 7 (5-7) 11/09/21 15:50 Ur Specific [place] 1.000 (1.005-1.030) L 11/09/21 15:50 Urine Protein Neg (Negative) 11/09/21 15:50 Urine Glucose (UA) Norm (Normal) 11/09/21 15:50 Urine Ketones Negative (Negative) 11/09/21 15:50 Urine Blood Neg (Negative) 11/09/21 15:50 Urine Nitrate Negative (Negative) 11/09/21 15:50 Urine Bilirubin Neg (Negative) 11/09/21 15:50 Urine Urobilinogen Norm mg/dL (Negative) 11/09/21 15:50 Ur Leukocyte Esterase Negative (Negative) 11/09/21 15:50 CSF Appearance Clear (CLEAR) 11/10/21 13:50 CSF Color Colorless (COLORLESS) 11/10/21 13:50 CSF Specific [place] 1.010 11/10/21 13:50 CSF WBC 1 /uL (0-5) 11/10/21 13:50 CSF RBC 0 10^3/uL (0-0) 11/10/21 13:50 CSF Mononuclear # Auto 0.001 10^3/uL (50-90) L 11/10/21 13:50 CSF Mononuclear WBCs % 100 % (50-90) H 11/10/21 13:50 CSF Polynuclear WBCs # 0.000 10^3/uL (0-10) 11/10/21 13:50 CSF Polynuclear WBCs % 0 % (0-10) 11/10/21 13:50 CSF Glucose 61 mg/dL (40-70) 11/10/21 13:50 CSF Total Protein 40 mg/dL (15-45) 11/10/21 13:50 CSF Lyme IgG (Immblot) Cancelled 11/10/21 13:50 CSF Lyme IgG (Immblot) No bands detected 11/10/21 13:50 CSF Lyme IgM (Immblot) Cancelled 11/10/21 13:50 CSF Lyme IgM (Immblot) No bands detected 11/10/21 13:50 Nasal Influ A H1 2009 PCR Not detected (NOT DETECT) 11/10/21 02:04 Urine Opiates Screen Negative ng/mL (Negative) 11/09/21 15:50 Ur Barbiturates Screen Negative ng/mL (Negative) 11/09/21 15:50 Ur Phencyclidine Scrn Negative ng/mL (Negative) 11/09/21 15:50 Ur Amphetamines Screen Negative ng/mL (Negative) 11/09/21 15:50 U Benzodiazepines Scrn Negative ng/mL (Negative) 11/09/21 15:50 Urine Cocaine Screen Negative ng/mL (Negative) 11/09/21 15:50 U Marijuana (THC) Screen Negative ng/mL (Negative) 11/09/21 15:50 Lyme Ab (Western Blot) <0.90 index 11/09/21 23:25 Lyme IgG Bands Present Cancelled 11/10/21 13:50 Lyme IgG Bands Present Not Reportable 11/10/21 13:50 Lyme IgM Bands Present Cancelled 11/10/21 13:50 Lyme IgM Bands Present Not Reportable 11/10/21 13:50 Coronavirus 229E (PCR) Not detected (NOT DETECT) 11/09/21 20:50 West Nile Virus IgG Ab <1.30 index 11/10/21 13:50 West Nile Virus IgM Ab <0.90 index 11/10/21 13:50 Monoscreen Negative (Negative) 11/13/21 05:12 Influenza A (H1) PCR Not detected (NOT DETECT) 11/10/21 02:04 Influenza A (H3) PCR Detected (NOT DETECT) A 11/10/21 02:04 Influenza Type A Ag Negative (Negative) 11/09/21 14:40 Influenza Type A (PCR) Detected (NOT DETECT) A 11/10/21 02:04 Influenza Type B Ag Negative (Negative) 11/09/21 14:40 Influenza Type B (PCR) Not detected (NOT DETECT) 11/10/21 02:04 SARS-CoV-2 (PCR) Not detected (NOT DETECT) 11/09/21 20:50 SARS-CoV-2 Ag (Rapid) Negative (Negative) 11/09/21 14:40 Vitals Last Vital Signs Temp 98.0 F 11/14/21 07:19 Pulse 76 11/14/21 07:19 Resp 16 11/14/21 07:19 BP 119/78 11/14/21 07:19 Pulse Ox 100 11/14/21 07:19 Discharge Plan Discharge Patient Disposition: Home Condition: Stable Prescriptions: New metronidazole 500 mg Tablet 500 mg PO TID 7 Days Qty: 21 0RF ciprofloxacin HCl 500 mg Tablet 500 mg PO BID@0900,2100 7 Days Qty: 14 0RF oseltamivir 75 mg Capsule 75 mg PO Q12H 1 Days Qty: 2 0RF Continued magnesium 250 mg Tablet 250 mg PO DAILY 0RF albuterol sulfate [ProAir HFA] 90 mcg/actuation Hfa Aerosol Inhaler 2 puff INHALATION Q6H PRN (Reason: ASTHMA) 0RF Label Comments: HAS NOT NEEDED THIS SINCE OCTOBER 2019 FOR HER ASTHMA potassium 99 mg Tablet 99 mg PO DAILY 0RF Discharge Orders: Discharge Order (Routine); Ordered 11/14/21 Ordered By: Santos Prince Referrals: Vasiliy Locke MD [Physician] - 11/26/21 8:30 am Didier Wesley MD [Hospitalist] - 4-7 days ([facility] will call you to set up an appointment for neutropenia.) Discharge Diet: GI Soft Discharge Activity: Resume usual activity Patient Instructions: Ciprofloxacin (By mouth), Metronidazole (By mouth), Oseltamivir (By mouth), Cholecystitis (DC), GI (Gastrointestinal) Soft Diet (DC), Opioid Safety Activity Restrictions/Additional Instructions: -If you have fevers please come back to the emergency room -If you have worsening right upper quadrant abdominal pain, nausea, vomiting go back to emergency room -Follow-up with general surgery in 2 weeks -Please follow GI soft diet, avoid fatty foods -Follow-up with hematology in 1 week for neutropenia -If any worsening headaches, nausea, fevers go to the emergency room Discharge Attestations Time Spent in Discharge Care*: less than 30 min Status at Discharge: Cognitive status at discharge: cognitively intact , Behavioral status at discharge: cooperative , Quality Metrics Clinical Quality Measures [ No reported AMI, CVA or VTE this stay] Coding Level of Care Code Acute Chg FW DC note Diagnoses Neutropenia D70.9 Pancytopenia D61.818 Influenza A J10.1 Malaise R53.81 Inappropriate sinus tachycardia R00.0 Hyperbilirubinemia E80.6 Hypomagnesemia E83.42 Gitelman syndrome E83.42; E87.6 Rash R21 Viral meningitis A87.9
[2021-11-14] MEDS: metroNIDAZOLE 500 MG Tablet PO (10:12)
[2021-11-14] MEDS: ciprofloxacin 500 mg Tablet PO (10:12)
[2021-11-14 10:30] VITALS: BP 119/78; PULSE 76; RESP 16; TEMP 36.7; O2SAT 100
--- NOTE | 2021-11-14 10:31 | PC.NURSE ---
IV removed intact. Patient tolerated well. Patient is A&Ox3. Respirations even and non-labored on room air. Reviewed patient's discharge with patient at this time including new medications and follow up appointments. Patient verbalized of discharge instructions. Patient wheel chaired to private car at this time.
[2021-11-14 10:44] LABS: Hepatitis B Core IgM Non-Reactive (Nonreactive); Hepatitis B Surface Antigen Non-Reactive (Nonreactive); Hepatitis C Virus Antibody Non-Reactive (Nonreactive)
[2021-11-14 11:05] LABS: HIV 1 & 2 Antibody Non-Reactive (Non-Reactiv); HIV 1 & 2 Antigen Non-Reactive (Non-Reactiv)
[2021-11-14 15:23] LABS: Oligoclonal Bands IGG, CSF PRESENT (ABSENT)
[2021-11-14 16:46] LABS: E. Chaffeensis AB IGG <1:64; E. Chaffeensis AB IGM <1:20
[2021-11-14 16:53] LABS: RMSF IGG NOT DETECTED; RMSF IGM NOT DETECTED
[2021-11-14 16:53] LABS: St. Louis Enceph.Virus IGG CSF <1:1; St. Louis Enceph.Virus IGM CSF <1:1
[2021-11-15 03:43] LABS: Heparin Induced Platelet AB NEGATIVE (NEGATIVE); Patient O.D 0.025
[2021-11-15 13:46] LABS: HSV 1 DNA NOT DETECTED; HSV 2 DNA NOT DETECTED; HSV Source CEREBROSPINAL FLUID
[2021-11-17 13:32] LABS: EBV IGM TEST <36.00 U/mL
[2021-11-17 14:33] LABS: Cytomegalovirus Antibody (IGG) <0.60 U/mL; Cytomegalovirus Antibody (IGM) <30.00 AU/mL
[2021-11-19 00:28] LABS: UFH High Dose, 100 IU/ML 0 % release; UFH Low Dose, 0.1 IU/ML 0 % release; UFH Low Dose, 0.5 IU/ML 0 % release; UFH SRA Result NEGATIVE (NEGATIVE)
== END 2021-11-14 10:26 | disposition home or self-care (01) | DRG 194 ==
LOC: ER 20:47 → MEDSURG 20:57
PROVIDERS: Admitting Provider Internal Medicine; Emergency Provider Emergency Medicine; Visit Provider Family Medicine
DX: J10.1 Influenza due to other identified influenza virus with other respiratory manifestations (principal); G93.40 Encephalopathy, unspecified; D61.818 Other pancytopenia; A87.9 Viral meningitis, unspecified; R00.0 Tachycardia, unspecified; F41.8 Other specified anxiety disorders; J45.20 Mild intermittent asthma, uncomplicated; Z28.310 Unvaccinated for COVID-19; G89.29 Other chronic pain; M25.562 Pain in left knee; M25.561 Pain in right knee; M54.50 Low back pain, unspecified; E83.42 Hypomagnesemia; R21 Rash and other nonspecific skin eruption; R20.2 Paresthesia of skin; Z79.51 Long term (current) use of inhaled steroids; R10.9 Unspecified abdominal pain; D70.9 Neutropenia, unspecified
CPT/HCPCS: 36415; 36416; 62328; 70450; 70544; 70553; 71045; 76700; 76705; 80053; 80074; 80306; 80503; 81003; 81025; 82248; 82945; 82962; 83010; 83605; 83615; 83735; 83916; 84100; 84157; 84315; 84443; 84484; 85025; 85378; 85651; 86140; 86308; 86335; 86617; 86618; 86653; 86664; 86665; 86666; 86757; 86788; 86789; 87040; 87070; 87075; 87205; 87327; 87426; 87530; 87631; 87635; 87804; 87806; 89050; 93005; 96365; 96372; 96375; 99285; A9577; G0378; J0133; J0696; J1644; J2060; J2270; J2405; J3370; J3475; J3490

== ENCOUNTER → 2021-11-26 08:22 | Outpatient (BNVA) | payer MEDICAID, SELFPAY | PROVIDERS: PCP Family Medicine; Visit Provider Surgery | DX: R19.4 Change in bowel habit (principal); R11.2 Nausea with vomiting, unspecified | CPT/HCPCS: 99203 ==

== ENCOUNTER 2021-12-01 09:22 | Outpatient (CLI) | payer MEDICAID, SELFPAY ==
[2021-12-01 11:34] LABS: Basophils # 0.1 10^3/uL (0.0-0.1); Basophils % 1.4 %; Eosinophils # 0.2 10^3/uL (0.0-0.8); Eosinophils % 4.3 %; Hematocrit 35.4 % (37.0-47.0); Hemoglobin 11.9 g/dL (11.5-15.3); LAB Peripheral Smear Sent for Review; Lymphocytes # 1.1 10^3/uL (0.8-4.8); Lymphocytes % 29.3 %; Mean Corpuscular HGB Conc 33.6 g/dL (30.0-36.0); Mean Corpuscular Volume 95.2 fl (81-99); Mean Platelet Volume 11.1 fL (7.4-10.4); Monocytes # 0.3 10^3/uL (0.2-0.9); Monocytes % 7.3 %; Neutrophils # 2.12 10^3/uL (1.8-7.7); Neutrophils % 57.7 %; Nucleated Red Blood Cells % 0 %; Platelet Count 222 10^3/cmm (130-400); Red Blood Count 3.72 10^6/uL (4.1-5.3); Red Cell Distribution Width 12.1 % (12.1-15.1); White Blood Count 3.7 10^3/uL (4.0-10.0)
[2021-12-01 11:47] LABS: Erythrocyte Sedimentation Rate 2 mm/hr (0-15)
[2021-12-01 12:21] LABS: Alanine Aminotransferase 17 U/L (0-33); Albumin Level 4.7 g/dL (3.5-5.2); Alkaline Phosphatase 43 IU/L (35-105); Anion Gap 15.8 (5-19); Aspartate Amino Transferase 21 U/L (0-32); Blood Urea Nitrogen 12 mg/dL (6-20); Calcium 8.8 mg/dL (8.5-10.5); Carbon Dioxide 26 mmol/L (22-29); Chloride 100 mmol/L (98-107); Ferritin 37 ng/mL (15-150); Globulin 2.9 g/dL (1.3-4.6); Glomerular Filtration Rate 100.4 mL/min (90-130); Glucose 83 mg/dL (65-115); Iron 79 ug/dL (37-145); Lipase 18 U/L (13-60); Magnesium 2.2 mg/dL (1.7-2.3); Osmolality Calculated 285 mOsm/kg (285-295); Percent Saturation 28.8 % (20-50); Potassium 3.8 mmol/L (3.5-5.1); Sodium 138 mmol/L (136-145); Total Iron Binding Capacity 274 mcg/dl; Total Protein 7.6 g/dL (6.6-8.7); Unsaturated Iron Binding 195 ug/dL (112-347); Vitamin B12 646 pg/mL (232-1245)
[2021-12-01 13:01] LABS: Folate Level > 20.0 ng/mL (4.8-37.3)
--- NOTE | 2021-12-01 20:49 | ONC CON_ITS ---
Dr. Wesley New Patient Note Patient: Lc Jarrell Unit #: [id number]: 1995 Dicatated By: Didier Wesley M.D.Date of Visit: Dec 01, 2021 Onc MED New Patient/Consult Referring Physician: [facility] EM[facility]Y [facility] Chief Complaint: Neutropenia. History of Present Illness: This is a 26-year-old woman with moderately severe neutropenia. She is known to have Gitelman syndrome. She also has asthma, chronic migraine, chronic anxiety, and history of depression. On 11/09/2021 she was admitted to the hospital after presenting to the emergency room with low-grade fever and malaise. She tested positive for influenza A. She had worsening CLINICAL SPECIALIST symptoms, and a head MRI did show diffuse mild leptomeningeal enhancement throughout the brain, highly suspicious for meningitis. Her spinal fluid analysis, though, was unrevealing. Numerous other serology studies were also negative. During the hospitalization she did have broad-spectrum antibiotic coverage, which included vancomycin. She also was given empiric treatment with acyclovir. Following discharge she completed a 7-day course of treatment with metronidazole and ciprofloxacin. She also was treated with oseltamivir. Her initial CBC in the emergency room showed normal hemoglobin at 13.2 g with hematocrit 38%. The white blood cell count was 10,000 with the differential showing 84% neutrophils. The platelet count was normal at 186,000. During the hospitalization she developed neutropenia with her absolute neutrophil count toñito ring at 470 on 11/13/2021. The following day it had increased slightly, to 750. Her hemoglobin at that point was adequate at 12.5 g. She also developed mild thrombocytopenia, with her toñito platelet count at 98,000. As of 11/14/2021 the liver enzymes were moderately elevated with SGOT 138/32 U/L in the SGPT 117/33 U/L. The bilirubin at that point was normal at 0.6 mg/dL. The alkaline phosphatase remained normal. Abdominal ultrasound showed slightly contracted gallbladder with sludge present, possibly with small stones within the sludge. The gallbladder wall was noted to be slightly enlarged. The bile duct was not dilated. There was a small right pleural effusion noted. She has still not felt good since she has been home from the hospital. She feels tired and drained, though she is doing childcare and some housework. ECOG score is 1. She has very poor appetite and and oral intake. She has continued to have stomach pain which tends to be worse after eating. She also has postprandial nausea, occasionally with vomiting. She has been taking omeprazole for acid symptoms. Her bowels have fluctuated between diarrhea and constipation. Her weight is down close to 10 pounds. She is not having fever now, she does have some cold sweats at night. She has noticed some visual changes in the right eye, and she has been seeing spots in both visual segovia. She has not had sore mouth or throat. She does not complain of cough, and she has not been having shortness of breath or chest pain. She has no complaints. She is having pain in the lower back and in both knees, though those are not new complaints. She has a history of migraine headaches. Her headaches now are more frequent, though they are not as severe and they do not last as long. She has been having orthostatic dizziness and lightheadedness. She occasionally has numbness in her fingers. She has anxiety and she has a history of depression. Past Medical History: Her medical history includes anxiety, asthma, chronic migraine, depression, and Gitelman syndrome. She has a history of COVID-19 virus infection in 2021. Past Surgical History: Her only surgery was a tubal ligation in 2019. Medications: Omeprazole 1 Capsule (of 40 mg) Capsule Delayed Release Oral daily Allergies: Amoxicillin and Penicillins. Social History: Ms. Jarrell is . She uses e-cigarette daily. She has just occasional alcohol use. Family History: Father with heart disease at age 48. He also had a bipolar disorder with depression. Mother is living at age 45. She has asthma and chronic idiopathic urticaria, and she also has anxiety/depression. A sister has bipolar disorder. Review Of Symptoms: Constitutional - She feels tired and drained. She is doing light work at home. Her appetite is poor. Her weight is down about 10 pounds. She does not have fever. She has been having some cold sweats at night. ECOG score is 1, Eyes - She has noticed a change in the vision in the right eye, and she has been seeing random spots in both visual segovia, ENMT - She has had a change in hearing, but it is intermittent. No sinus congestion/drainage. No mouth sores. No sore throat or difficulty swallowing, Hematologic/Lymphatic - No abnormal bruising or bleeding, Respiratory - No shortness of breath. No cough. No pleuritic pain or hemoptysis, Cardiovascular - No angina pain. No palpitations, Gastrointestinal - She has been having pain in the abdomen, particularly in the left upper quadrant area. It is worse when she eats. She also has postprandial nausea, sometimes with vomiting. She has had intermittent diarrhea or constipation. No blood in the stool or black stools, Genitourinary (F) - No dysuria or hematuria. No urinary frequency. No urgency or incontinence. Her periods have been irregular. She had some clotting and discharge after her last period, Musculoskeletal - She has been having pain in the low back area and she also has some pain in her knees, Integumentary - No skin rash or other skin problems, Neurologic - She has a history of migraine headaches. Her headaches recently have been more frequent, they do not last long. They are mainly on the right side. She has been having some orthostatic dizziness/lightheadedness. She has had numbness in her fingertips intermittently, Psychiatric - She has some anxiety/stress. She also has a history of depression. No insomnia. Vital Signs: Performed on Dec 01, 2021 10:43: 8, 5, 19.70, 1.74 sq.m, 69 in, 99 %, 77 /min, 16 /min, 120/73 mm(hg), 98.7 F, and 133.4 lbs (HIGH). Physical Examination: Constitutional - She does not appear acutely ill, Eyes - Sclerae nonicteric. Conjunctivae clear, ENMT - No lesions noted in the oral cavity. TMs are noninflamed, Neck - No mass or thyromegaly. There is some stiffness and some slight pain with neck flexion, but she does not appear to have actual meningismus, Hematologic/Lymphatic - No cervical, clavicular, or axillary adenopathy, Respiratory - Lungs are clear with good air movement bilaterally, Cardiovascular - Heart rhythm is regular. There is no murmur, gallop, or rub noted, Abdomen - Soft. There is just mild tenderness in the upper abdomen. Liver and spleen are not enlarged. There is no abdominal mass or ascites noted. There are tiny inguinal lymph nodes palpable bilaterally, Back/Spine - There is no CVA tenderness noted. There is mild tenderness over the lower lumbar spine, Extremities - No edema. Pedal pulses are palpable bilaterally, Integumentary - No rashes. No suspicious skin lesions noted, Neurologic - No focal neurologic deficits noted. Problem List: 1. Severe neutropenia and mild thrombocytopenia. 2. Viral syndrome due to influenza A. 3. Suspected viral meningitis. 4. Postprandial abdominal pain and nausea/vomiting. 5. Gitelman syndrome. 6. Asthma. 7. Chronic migraine. 8. Chronic anxiety. 9. History of depression. Problems Addressed with this Encounter and Plan: 1. Patient with severe neutropenia and mild thrombocytopenia in association with viral syndrome. It is uncertain to what extent the low blood counts may have been due to the viral syndrome and/or antibiotic therapy which was administered during the hospitalization and included vancomycin. In either case, complete resolution would be expected. The laboratory findings were reviewed with the patient. We discussed the clinical implications. She will have additional laboratory studies today which will include CBC, sed rate, CRP level, serum iron studies, B12 and folate levels, and DEVAUGHN screen. I will review the blood smear. She will have further evaluation as indicated. 2. She has been having ongoing GI symptoms including abdominal pain, anorexia, and nausea/vomiting. A specific cause has not been determined, but during her recent hospitalization there also was evidence of transaminitis. She has follow-up scheduled with Dr. Locke. At this point I will recheck her chemistry studies and a serum lipase. I will have her start empiric treatment with metoclopramide 5 mg 4 times daily. Signed By: Didier Wesley M.D. <<Signature on File>>
[2021-12-02 17:07] LABS: Anti-Nuclear Antibody Screen NEGATIVE (NEGATIVE)
== END 2021-12-01 09:23 | disposition home or self-care (01) ==
PROVIDERS: PCP Family Medicine; Visit Provider Internal Medicine Medical Oncology
DX: D70.9 Neutropenia, unspecified (principal); D69.6 Thrombocytopenia, unspecified; B34.9 Viral infection, unspecified; F41.9 Anxiety disorder, unspecified; F32.A Depression, unspecified; J45.909 Unspecified asthma, uncomplicated; Z79.899 Other long term (current) drug therapy
CPT/HCPCS: 36415; 80053; 82607; 82728; 82746; 83540; 83550; 83690; 83735; 85025; 85651; 86038; 86140; 99204

== ENCOUNTER 2021-12-22 05:48 | Outpatient (CLI) | payer MEDICAID, SELFPAY ==
--- NOTE | 2021-12-22 06:30 | US_ITS ---
WS: [id number] RIGHT UPPER QUADRANT ULTRASOUND HISTORY: Nausea and vomiting COMPARISON: 11/13/2021. Liver: 14.8 cm in length. Normal size liver. No bile duct dilatation or mass. Portal Vein: Normal hepatopetal flow with monophasic waveform. Gallbladder: Normally distended gallbladder with no stones or wall thickening. CBD: 0.2 cm Pancreas: Normal size and echogenicity. Right kidney: 10.9 cm in length. Normal size and echogenicity. No hydronephrosis or mass. Aorta and IVC: Unremarkable abdominal aorta and IVC. No ascites. Small RIGHT pleural effusion. US/US gall bladder [id number] IMPRESSION: Negative gallbladder. Small RIGHT pleural effusion. Also noted on the prior ultrasound of 11/13/2021 of uncertain etiology.
== END 2021-12-22 05:49 | disposition home or self-care (01) ==
LOC: RAD 05:48
PROVIDERS: PCP Family Medicine; Visit Provider Surgery
DX: R11.2 Nausea with vomiting, unspecified (principal); J91.8 Pleural effusion in other conditions classified elsewhere
CPT/HCPCS: 76705

== ENCOUNTER 2021-12-23 10:40 | Outpatient (CLI) | payer MEDICAID, SELFPAY ==
--- NOTE | 2021-12-23 10:56 | US_ITS ---
WS: [id number] ULTRASOUND BREAST BILATERAL TECHNIQUE: Ultrasound bilateral breast focused area of concern. CLINICAL INFORMATION: FAM HX OF BREAST CA;HERNESTO NIPPLE DISCHARGE;LT BREAST PAIN/LUMP COMPARISON: None. FINDINGS: RIGHT BREAST: Normal appearing lymph node in the area of palpable concern RIGHT breast 10:00 position 4 cm from the nipple measuring 9.5 x 4.2 mm. Subareolar ultrasound is normal. LEFT BREAST: Ultrasound LEFT nipple demonstrates incidental dilated subareolar ducts. No intraductal lesions or debris. No suspicious findings. No suspicious findings in either breast. US/US breast BI limited* [id number] IMPRESSION: BI-RADS 2 benign Recommend annual screening mammography age 40
== END 2021-12-23 10:41 | disposition home or self-care (01) ==
LOC: RAD 10:46
PROVIDERS: PCP Family Medicine; Visit Provider Nurse Practitioner Family
DX: N64.52 Nipple discharge (principal); N63.20 Unspecified lump in the left breast, unspecified quadrant; N64.4 Mastodynia; Z80.3 Family history of malignant neoplasm of breast
CPT/HCPCS: 76642

== ENCOUNTER 2021-12-30 08:55 | Outpatient (CLI) | payer MEDICAID, SELFPAY ==
--- NOTE | 2021-12-30 09:03 | NM_ITS ---
WS: [id number] NUCLEAR MEDICINE HIDA SCAN WITH GALLBLADDER EJECTION FRACTION HISTORY: CHOLELITHIASIS, HYPERBILIRUBINEMIA COMPARISON: 12/22/2021 TECHNIQUE: The patient was intravenously injected with 8.3 mCi of TC99m Mebrofenin. Immediate imaging over the right upper quadrant was followed by 5 minute image and additional images for a total of 60 minutes. Normal uptake of radiotracer throughout the liver. Activity identified in the gallbladder at 10 minutes and well distended by 60 minutes. Activity in the proximal small bowel was seen by 60 minutes. Good washout of the radiotracer from the liver by 60 minutes. The patient then drank 8 ounces of Ensure Plus. Ejection fraction at 60 minutes was 69%. Normal GB ej ection fraction is 35-75%. Post fatty meal symptoms: None. NM/NM hepatobiliary w phar* [id number] IMPRESSION: 1. Normal HIDA scan. 2. Normal gallbladder ejection fraction.
== END 2021-12-30 08:56 | disposition home or self-care (01) ==
LOC: RAD 08:58
PROVIDERS: PCP Family Medicine; Visit Provider Nurse Practitioner Family
DX: K80.20 Calculus of gallbladder without cholecystitis without obstruction (principal); E80.6 Other disorders of bilirubin metabolism
CPT/HCPCS: 78227; A9537

== ENCOUNTER → 2022-01-01 14:30 | Outpatient (BNVA) | payer MEDICAID, SELFPAY | PROVIDERS: PCP Family Medicine; Visit Provider Surgery | DX: K82.9 Disease of gallbladder, unspecified (principal); R19.4 Change in bowel habit; R11.2 Nausea with vomiting, unspecified | CPT/HCPCS: 99213 ==

== ENCOUNTER → 2022-01-14 11:15 | Outpatient (BNVA) | payer MEDICAID, SELFPAY | PROVIDERS: PCP Family Medicine; Visit Provider Internal Medicine Cardiovascular Disease | DX: R42 Dizziness and giddiness (principal); R00.0 Tachycardia, unspecified; I49.3 Ventricular premature depolarization; I49.1 Atrial premature depolarization | CPT/HCPCS: 93242 ==

== ENCOUNTER 2022-01-21 11:27 | Outpatient (CLI) | payer MEDICAID, SELFPAY | END 2022-01-21 11:28 | disposition home or self-care (01) | LOC: LAB 11:31 | PROVIDERS: PCP Family Medicine; Visit Provider Internal Medicine Medical Oncology | DX: D70.9 Neutropenia, unspecified (principal); D69.6 Thrombocytopenia, unspecified; R10.9 Unspecified abdominal pain; R63.0 Anorexia; Z68.1 Body mass index [BMI] 19.9 or less, adult; R11.2 Nausea with vomiting, unspecified; R12 Heartburn; Z79.899 Other long term (current) drug therapy; Z79.2 Long term (current) use of antibiotics | CPT/HCPCS: 99214 ==

== ENCOUNTER 2022-01-21 12:46 | Oncology outpatient (recurring) (ONCR) | payer MEDICAID, SELFPAY ==
[2022-01-21 12:14] LABS: Basophils # 0.1 10^3/uL (0.0-0.1); Basophils % 1.3 %; Eosinophils # 0.2 10^3/uL (0.0-0.8); Eosinophils % 4.3 %; Hematocrit 33.2 % (37.0-47.0); Hemoglobin 11.3 g/dL (11.5-15.3); Lymphocytes # 1.8 10^3/uL (0.8-4.8); Mean Corpuscular Hemoglobin 30.8 pg (28.0-34.0); Mean Corpuscular Volume 90.5 fl (81-99); Mean Platelet Volume 11.3 fL (7.4-10.4); Monocytes # 0.4 10^3/uL (0.2-0.9); Monocytes % 9.2 %; Nucleated Red Blood Cells % 0 %; Platelet Count 254 10^3/cmm (130-400); Red Blood Count 3.67 10^6/uL (4.1-5.3); Red Cell Distribution Width 11.6 % (12.1-15.1); White Blood Count 4.5 10^3/uL (4.0-10.0)
[2022-01-21 12:32] LABS: Alanine Aminotransferase 32 U/L (0-33); Albumin Level 4.2 g/dL (3.5-5.2); Alkaline Phosphatase 64 IU/L (35-105); Anion Gap 14.9 (5-19); Aspartate Amino Transferase 33 U/L (0-32); Blood Urea Nitrogen 9 mg/dL (6-20); Carbon Dioxide 26 mmol/L (22-29); Chloride 103 mmol/L (98-107); Globulin 3.2 g/dL (1.3-4.6); Glomerular Filtration Rate 100.4 mL/min (90-130); Glucose 83 mg/dL (65-115); Osmolality Calculated 288 mOsm/kg (285-295); Potassium 3.9 mmol/L (3.5-5.1); Sodium 140 mmol/L (136-145); Total Bilirubin 0.4 mg/dL (0.15-1.2); Total Protein 7.4 g/dL (6.6-8.7)
[2022-01-21 14:50] LABS: Vitamin B12 622 pg/mL (232-1245)
== END 2022-02-05 23:59 | disposition home or self-care (01) ==
LOC: ONCMED 12:47
PROVIDERS: Internal Medicine Medical Oncology; PCP Family Medicine; Visit Provider Nurse Practitioner Family
DX: D70.9 Neutropenia, unspecified (principal)
CPT/HCPCS: 80053; 82607; 85025

== ENCOUNTER 2022-01-29 06:14 | Day surgery (SDC) | payer MEDICAID, SELFPAY ==
--- NOTE | 2022-01-29 06:21 | W.PM.OPSFHP ---
Same Day Surgery H&P Indication for Procedure/HPI DATE OF PROCEDURE: January 29, 2022 CHIEF COMPLAINT/INDICATIONFOR SURGICAL PROCEDURE: Abdominal cramping associated with the change in bowel habits PREOP DIAGNOSIS: Nausea, vomiting and change in bowel habits PLANNED PROCEDURE: Operation Date: 01/29/22 07:30 Proposed Procedures p Colonoscopy 76922/nausea and vomiting R11.2/R19.4 change in bowel habit(Not Applicable) - Vasiliy Locke MD 11/26/2021 This is a pleasant 26 years old female patient with complex medical history.? She does report history of Gettleman syndrome recently presented to the hospital with a broad spectrum of symptomatology and undergone further work-up and she was admitted to the hospitalist service.? There was a concern about acute encephalopathy, paresthesias and strokelike symptoms likely to influenza A and viral meningitis.? Patient was started on broad-spectrum antibiotics as well as antiviral therapy and had an MRI that showed; MRI showed mild leptomeningeal enhancement throughout the brain, suspicious for meningitis. CSF studies showed clear, colorless, 1 WBCs, no RBCs, 61 glucose, total protein 40, Gram stain rare white blood cells, no organisms.? CSF no growth so far.? Cryptococcal antigen negative.? Viral studies pending. She was started on Tamiflu, remained afebrile, clinically improved, discharged home.? And she did develop neutropenia with pancytopenia during her recent hospitalization and thought that due to the broad-spectrum antibiotics vancomycin and had a component of bone marrow suppression.? On top of that patient had persistent nausea and vomiting in addition to change in bowel habits alternating between diarrhea and constipation without evidence of bleeding per rectum. Further work-up in the hospital was done that showed; 1.? Abnormal gallbladder. Slightly contracted gallbladder with sludge present. There may be small stones within the sludge also. Gallbladder wall is slightly enlarged. Recommend evaluation for possible acute cholecystitis. 2.? No bile duct dilatation. 3.? Small RIGHT pleural effusion. ? 01/01/2022 Ultrasound of the liver and gallbladder was done and showed Liver: 14.8 cm in length. Normal size liver. No bile duct dilatation or mass. Portal Vein: Normal hepatopetal flow with monophasic waveform. Gallbladder: Normally distended gallbladder with no stones or wall thickening. CBD: 0.2 cm Pancreas: Normal size and echogenicity. Right kidney: 10.9 cm in length. Normal size and echogenicity. No hydronephrosis or mass. Aorta and IVC: Unremarkable abdominal aorta and IVC. No ascites. Small RIGHT pleural effusion. US/US gall bladder [id number] IMPRESSION: ? Negative gallbladder. Small RIGHT pleural effusion. Also noted on the prior ultrasound of 11/13/2021 of uncertain etiology. Patient has a follow-up via telehealth today and a HIDA scan was requested by me and patient did encounter some bloating and abdominal discomfort with a HIDA scan.? She also gives history of fatty dyspepsia with ongoing concerns of change in bowel habits.? Patient is scheduled for diagnostic EGD and colonoscopy. 01/29/2022 Patient comes today for diagnostic EGD and colonoscopy ROS All systems have been reviewed negative except as for the above or per problem list. Medications/Allergies* Home Medications Medication Instructions Recorded Confirmed Type albuterol sulfate 90 mcg/actuation 2 puff INHALATION Q6H PRN 02/06/21 01/27/22 History aerosol inhaler (ProAir HFA) buspirone 5 mg tablet 5 mg PO PRN PRN 01/21/22 01/27/22 History Allergies/Adverse Reactions Allergy/AdvReac Type Severity Reaction Status Date / Time amoxicillin Allergy Unknown ALGY-Hives Verified 01/29/22 06:23 Penicillins Allergy ALGY-Hives Verified 01/29/22 06:23 Pertinent History/Comorbid Conditions* Medical History (Updated 11/26/21 @ 13:19 by Vasiliy Locke MD) Anxiety and depression Asthma Depression Gitelman syndrome Grief Suicidal behavior with attempted self-injury Surgical History (Updated 11/09/21 @ 21:43 by Torres Ruiz MD) H/O tubal ligation Family History Anxiety Mother Depression Mother Bipolar disorder with depression Father Sister Social History Smoking and tobacco status: never smoked Alcohol intake: current Alcohol intake frequency: few times a week Alcohol type: beer, wine and hard liquor Desire information about alcohol rehabilitation?: Yes (USING IT TO COPE) Counseling given: Yes (PT NEEDS COPING SKILLS ) Last alcohol use date: 02/05/21 Other details last alcohol use: STARTED DRINKING ON 08/02/20 WHEN HER FATHER Desire information about substance/drug rehabilitation?: No Counseling given: No Adopted: No Caregiver/support person: No Lives independently: Yes Household members: spouse, family and children Housing: House Marital status: Marital status details: HAVING MARITAL ISSUES Number of children: 3 Highest education level completed: High School Graduate service: No Current occupational status: unemployed 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
[2022-01-29 06:23] VITALS: BP 106/80; PULSE 79; RESP 18; TEMP 36.4; O2SAT 100
[2022-01-29 06:32] LABS: OR HCG Qualitative Urine Negative (Negative)
[2022-01-29] MEDS: sodium chloride 0.9% 1,000 ML 30 ML IV (06:33)
--- NOTE | 2022-01-29 06:41 | ANES.PREANE2 ---
Pre-Anesthetic Assessment Height/Weight: Height 1.75 m Weight 60.328 kg Temp Pulse Resp BP Pulse Ox 97.5 F L 79 18 106/80 100 01/29/22 06:23 01/29/22 06:23 01/29/22 06:23 01/29/22 06:23 01/29/22 06:23 Preop Diagnosis: Nausea, vomiting and change in bowel habits Operation Date: 01/29/22 07:30 Proposed Procedures p Colonoscopy 33773/nausea and vomiting R11.2/R19.4 change in bowel habit(Not Applicable) - Vasiliy Locke MD Familial anesthetic complications: none Was Beta James taken within 24 hours: N/A Was Clonidine taken within 24 hours: N/A Last intake: Intake Last Liquid Date 01/28/22 Last Liquid Time 22:00 Last Solid Date 01/27/22 Last Solid Time 22:00 Social No alcohol and No tobacco Exam alert, oriented x 3, clear to auscultation bilaterally and regular rate & rhythm Airway Cervical ROM: within normal limits Mallampati: Class II Dentition: full Pulmonary Asthma CV/HEM None reported Hx of syncope Gitelman syndrome Hepatic None reported GI Gastroesophageal Reflux Disease Metabolic None reported Neuropsych Anxiety and Depression Anesthetic Plan ASA status: 2 Anesthesia: Anesthesia Evaluation and MAC Other: I discussed with the patient risks, goals, and benefits of MAC and general anesthesia. We discussed spectrum of MAC anesthesia including conversion to general as well as possibility of recall of intraoperative stimuli including discomfort/pain. Patient agrees to proceed with MAC. Medications/Allergies Home Medications Medication Instructions Recorded Confirmed Last Taken Type albuterol sulfate 90 mcg/actuation 2 puff INHALATION Q6H PRN 02/06/21 01/27/22 01/27/22 History aerosol inhaler (ProAir HFA) buspirone 5 mg tablet 5 mg PO PRN PRN 01/21/22 01/27/22 01/27/22 History omeprazole 20 mg capsule,delayed 20 mg PO DAILY #30 cap 01/21/22 01/27/22 01/27/22 Rx release Allergies Allergy/AdvReac Type Severity Reaction Status Date / Time amoxicillin Allergy Unknown ALGY-Hives Verified 01/29/22 06:23 Penicillins Allergy ALGY-Hives Verified 01/29/22 06:23 Current Medications Generic Name Dose Route Start Last Admin Trade Name Freq PRN Reason Stop Dose Admin Sodium Chloride 1,000 mls @ 30 mls/hr 01/29/22 06:15 01/29/22 06:33 Sodium Chloride 0.9% IV 30 mls/hr .Q24H LYUBOV Administration PFSH Anesthesia Medical History Anxiety and depression Asthma Depression Gitelman syndrome Grief Suicidal behavior with attempted self-injury Surgical History H/O tubal ligation Family History Father Bipolar disorder with depression Sister Bipolar disorder with depression Mother Anxiety Depression Social History Smoking and tobacco status: never smoked Alcohol intake: current Alcohol intake frequency: few times a week Alcohol type: beer, wine and hard liquor Desire information about alcohol rehabilitation?: Yes (USING IT TO COPE) Counseling given: Yes (PT NEEDS COPING SKILLS ) Last alcohol use date: 02/05/21 Other details last alcohol use: STARTED DRINKING ON 08/02/20 WHEN HER FATHER Desire information about substance/drug rehabilitation?: No Counseling given: No Adopted: No Caregiver/support person: No Lives independently: Yes Household members: spouse, family and children Housing: House Marital status: Marital status details: HAVING MARITAL ISSUES Number of children: 3 Highest education level completed: High School Graduate service: No Current occupational status: unemployed 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
[2022-01-29 08:06] VITALS: BP 105/52; PULSE 68; RESP 16; TEMP 36.1; O2SAT 100
[2022-01-29 08:17] VITALS: BP 107/62; PULSE 75; RESP 18; O2SAT 100
--- NOTE | 2022-01-29 10:13 | ANE.PACU2 ---
Inpatient post-anesthesia follow up: Airway intact: Yes Vital signs: Temperature 97.0 F Pulse Rate 75 Respiratory Rate 18 Blood Pressure 107/62 Pulse Oximetry 100 Oxygen Delivery Me thod Room Air Oxygen Flow Rate 4 Fraction of Inspir ed Oxygen Hydration adequate: Yes Nausea and vomiting: No Pain level: 1 Mental status: Baseline
== END 2022-01-29 08:32 | disposition home or self-care (01) ==
PROVIDERS: Anesthesiology; PCP Family Medicine; Visit Provider Surgery
PROC: 0DJD8ZZ Inspection of Lower Intestinal Tract, Via Natural or Artificial Opening Endoscopic (ICD-10-PCS; CPT 45378; principal; 2022-01-29 07:30)
PROC: 0DJ08ZZ Inspection of Upper Intestinal Tract, Via Natural or Artificial Opening Endoscopic (ICD-10-PCS; CPT 43235; 2022-01-29 07:30)
DX: R11.2 Nausea with vomiting, unspecified (principal); R19.4 Change in bowel habit; K44.9 Diaphragmatic hernia without obstruction or gangrene; K29.50 Unspecified chronic gastritis without bleeding; J45.909 Unspecified asthma, uncomplicated; K21.9 Gastro-esophageal reflux disease without esophagitis; F41.9 Anxiety disorder, unspecified; F32.9 Major depressive disorder, single episode, unspecified; Q87.89 Other specified congenital malformation syndromes, not elsewhere classified
CPT/HCPCS: 43239; 45378; 81025; 82274; 83630; 84703; 87493; 87506; 88305; 88342; J2704; J7030

== ENCOUNTER 2022-03-12 06:08 | Outpatient (CLI) | payer MEDICAID, SELFPAY ==
--- NOTE | 2022-03-12 06:45 | US_ITS ---
WS: [id number] RIGHT UPPER QUADRANT ULTRASOUND HISTORY: nausea and vomiting COMPARISON: 12/22/2021 Liver: 13.6 cm in length. Normal size liver. No bile duct dilatation or mass. Portal Vein: Normal hepatopetal flow with monophasic waveform. Gallbladder: Normally distended gallbladder with no stones or wall thickening. CBD: 0.2 cm Pancreas: Normal size and echogenicity. Right kidney: 9.7 cm in length. Normal size and echogenicity. No hydronephrosis or mass. Aorta and IVC: Unremarkable abdominal aorta and IVC. No ascites. Small layering RIGHT pleural effusion. No change since the prior study. US/US liver [id number] IMPRESSION: 1. Small RIGHT pleural effusion, similar to the prior examination. 2. Otherwise negative.
== END 2022-03-12 06:09 | disposition home or self-care (01) ==
LOC: RAD 06:09
PROVIDERS: PCP Family Medicine; Visit Provider Surgery
DX: R11.2 Nausea with vomiting, unspecified (principal); J90 Pleural effusion, not elsewhere classified
CPT/HCPCS: 76705

== ENCOUNTER → 2022-03-17 08:06 | Outpatient (BNVA) | payer MEDICAID, SELFPAY | PROVIDERS: PCP Family Medicine; Visit Provider Surgery | DX: Z09 Encounter for follow-up examination after completed treatment for conditions other than malignant neoplasm (principal); K29.70 Gastritis, unspecified, without bleeding; R11.2 Nausea with vomiting, unspecified | CPT/HCPCS: 99213 ==

== ENCOUNTER 2022-05-13 12:55 | Oncology outpatient (recurring) (ONCR) | payer MEDICAID, SELFPAY ==
[2022-05-13 13:22] LABS: Basophils # 0.1 10^3/uL (0.0-0.1); Basophils % 0.9 %; Eosinophils # 0.7 10^3/uL (0.0-0.8); Eosinophils % 7.9 %; Hematocrit 39.1 % (37.0-47.0); Hemoglobin 12.8 g/dL (11.5-15.3); Lymphocytes % 22.2 %; Mean Corpuscular HGB Conc 32.7 g/dL (30.0-36.0); Mean Corpuscular Hemoglobin 31.1 pg (28.0-34.0); Mean Corpuscular Volume 94.9 fl (81-99); Mean Platelet Volume 11.1 fL (7.4-10.4); Monocytes # 0.6 10^3/uL (0.2-0.9); Monocytes % 6.6 %; Neutrophils % 62.1 %; Nucleated Red Blood Cells % 0 %; Platelet Count 245 10^3/cmm (130-400); Red Blood Count 4.12 10^6/uL (4.1-5.3); Red Cell Distribution Width 11.9 % (12.1-15.1); White Blood Count 9.2 10^3/uL (4.0-10.0)
[2022-05-13 13:44] LABS: Alanine Aminotransferase 28 U/L (0-33); Albumin Level 4.2 g/dL (3.5-5.2); Alkaline Phosphatase 66 U/L (35-105); Anion Gap 13.8 (5-19); Aspartate Amino Transferase 32 U/L (0-32); Blood Urea Nitrogen 11 mg/dL (6-20); Calcium 9.1 mg/dL (8.5-10.5); Carbon Dioxide 28 mmol/L (22-29); Chloride 103 mmol/L (98-107); Glomerular Filtration Rate 100.4 mL/min (90-130); Glucose 91 mg/dL (65-115); Osmolality Calculated 291 mOsm/kg (285-295); Potassium 3.8 mmol/L (3.5-5.1); Sodium 141 mmol/L (136-145); Total Bilirubin 1.5 mg/dL (0.15-1.2); Total Protein 7.2 g/dL (6.6-8.7)
[2022-05-13 14:17] LABS: Magnesium 2.1 mg/dL (1.7-2.3)
== END 2022-06-08 23:59 | disposition home or self-care (01) ==
LOC: ONCMED 12:56
PROVIDERS: Internal Medicine Medical Oncology; PCP Family Medicine; Visit Provider Nurse Practitioner Family
DX: D70.9 Neutropenia, unspecified (principal); E83.42 Hypomagnesemia
CPT/HCPCS: 36415; 80053; 83735; 85025

== ENCOUNTER 2022-12-21 13:06 | Emergency (ER) | payer MEDICAID, SELFPAY ==
[2022-12-21 13:51] VITALS: BP 134/77; PULSE 89; TEMP 36.8; O2SAT 100; BMI 20.9
[2022-12-21 14:53] VITALS: BP 127/78; PULSE 82; TEMP 37.2; O2SAT 99
[2022-12-21 14:53] LABS: Add Urine Microscopic? NO; Charge for UA Resulting for Rev
[2022-12-21 15:07] LABS: Bilirubin Urine Neg (Negative); Blood Urine Neg (Negative); Glucose Urine UA Norm (Normal); Ketones Urine Negative (Negative); Leukocyte Esterase Urine Negative (Negative); Nitrate Urine Negative (Negative); Protein Urine Neg (Negative); Sulfosalicylic Acid Urine Negative (Negative); Urine Appearance Clear (CLEAR); Urine Color Straw (Yellow); Urobilinogen Urine Norm (Negative); pH Urine 8 (5-7)
[2022-12-21 15:15] LABS: Amphetamines Screen Urine Negative (Negative); Barbiturates Screen Urine Negative (Negative); Benzodiazepines Screen Urine Negative (Negative); Cocaine Screen Urine Negative (Negative); Opiate Screen Urine Negative (Negative); PCP Screen Urine Negative (Negative); THC Screen Urine Negative (Negative)
[2022-12-21 15:17] LABS: Basophils # 0.1 10^3/uL (0.0-0.1); Basophils % 0.6 %; Eosinophils # 0.1 10^3/uL (0.0-0.8); Eosinophils % 0.9 %; Hematocrit 39.6 % (37.0-47.0); Hemoglobin 13.1 g/dL (11.5-15.3); Lymphocytes # 1.8 10^3/uL (0.8-4.8); Lymphocytes % 23.6 %; Mean Corpuscular HGB Conc 33.1 g/dL (30.0-36.0); Mean Corpuscular Hemoglobin 30.8 pg (28.0-34.0); Mean Corpuscular Volume 93.2 fl (81-99); Monocytes # 0.5 10^3/uL (0.2-0.9); Monocytes % 6.8 %; Neutrophils # 5.27 10^3/uL (1.8-7.7); Neutrophils % 67.7 %; Nucleated Red Blood Cells % 0 %; Platelet Count 197 10^3/cmm (130-400); Red Blood Count 4.25 10^6/uL (4.1-5.3); Red Cell Distribution Width 11.4 % (12.1-15.1); White Blood Count 7.8 10^3/uL (4.0-10.0)
[2022-12-21 15:37] LABS: HCG, Serum Qual Negative (Negative)
[2022-12-21 15:42] LABS: Alanine Aminotransferase 13 U/L (0-33); Albumin Level 4.6 g/dL (3.5-5.2); Alkaline Phosphatase 57 U/L (35-105); Anion Gap 15.2 (5-19); Aspartate Amino Transferase 19 U/L (0-32); Blood Urea Nitrogen 10 mg/dL (6-20); Calcium 9.1 mg/dL (8.5-10.5); Carbon Dioxide 26 mmol/L (22-29); Chloride 101 mmol/L (98-107); Globulin 2.8 g/dL (1.3-4.6); Glomerular Filtration Rate 99.6 mL/min (90-130); Glucose 91 mg/dL (65-115); Magnesium 2.1 mg/dL (1.7-2.3); Osmolality Calculated 285 mOsm/kg (285-295); Potassium 4.2 mmol/L (3.5-5.1); Sodium 138 mmol/L (136-145); Total Protein 7.4 g/dL (6.6-8.7)
[2022-12-21 17:39] VITALS: BP 115/76; PULSE 80; O2SAT 100
--- NOTE | 2022-12-21 19:05 | ED_ITS ---
HPI - Headache General: Chief Complaint: Headache Stated Complaint: headache Time Seen by Provider: 12/21/22 19:05 History of Present Illness: 27-year-old female comes in today for complaints of migraine headache. Patient has a history of recurrent migraine headaches. Patient reports that the headaches are daily. 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 Patient appears nontoxic. No focal neural deficits are noted. Patient is alert and oriented. Associated symptoms: Reports nausea and vomiting; Deny chest pain, fever(s) or rash Review of Systems General: Reports: 10 or more systems reviewed and unremarkable except in HPI and below Const: Denies: fever(s) Eyes: Reports: photophobia ENMT: Denies: throat pain Card: Denies: chest pain Resp: Denies: dyspnea GI: Reports: nausea and vomiting : Denies: difficulty voiding Skin/Breast: Denies: rash Neuro: Reports: headache(s) PFSH ED PFSH: Medical History Anxiety and depression Asthma Depression Gitelman syndrome Grief Suicidal behavior with attempted self-injury Surgical History H/O tubal ligation Family History Father Bipolar disorder with depression Sister Bipolar disorder with depression Mother Anxiety Depression Social History Smoking and tobacco status: never smoked Alcohol intake: current Alcohol intake frequency: few times a week Alcohol type: beer, wine and hard liquor Desire information about alcohol rehabilitation?: Yes (USING IT TO COPE) Counseling given: Yes (PT NEEDS COPING SKILLS ) Last alcohol use date: 02/05/21 Other details last alcohol use: STARTED DRINKING ON 08/02/20 WHEN HER FATHER Substance/Drug Use: current Desire information about substance/drug rehabilitation?: No Counseling given: No Adopted: No Caregiver/support person: No Lives independently: Yes Household members: spouse, family and children Housing: House Marital status: Marital status details: HAVING MARITAL ISSUES Number of children: 3 Highest education level completed: High School Graduate service: No Current occupational status: unemployed 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 Pets and animals: No Leisure activites: fishing Sexually active: Yes How many partners: 1 Are you practicing safe sex: No ( ) Do you think of yourself as: Straight/Heterosexual Current gender identity: Female Special shivam needs: No Agree to transfusion: Yes Financial difficulty paying for basics: Hard Physical Exam Const: COMMON NORMALS: alert HENMT: COMMON NORMALS: normocephalic HEAD & SCALP: normocephalic Neck/C-Spine: COMMON NORMALS: full ROM and no meningeal signs Resp: COMMON NORMALS: normal respiratory effort Cardio: COMMON NORMALS: regular rate RATE: regular rate Back/Pelvis: COMMON NORMALS: thoracic and lumbar spine normal to inspection Extremity: COMMON NORMALS: full ROM Neuro: ELVI COMA SCALE: document GCS findings [place] coma scale eye opening: Spontaneous Elvi coma scale verbal response: Orientated Elvi coma scale motor response: Obey commands Elvi coma scale total score: 15 SENSORIUM/ORIENTATION: Yes alert MENINGEAL SIGNS: Yes no meningeal signs SPEECH: speech normal Skin: COMMON NORMALS: turgor normal GENERAL SKIN EXAM: turgor normal Course Vital Signs: Vital signs: Vital Signs Temperature 99.0 F 12/21/22 14:53 Pulse Rate 67 12/21/22 19:12 Respiratory Rate 16 12/21/22 19:12 Blood Pressure 113/77 12/21/22 19:12 Pulse Oximetry 100 12/21/22 19:12 Oxygen Delivery Me thod Room Air 12/21/22 17:39 MDM - Headache Medical Decision Making 27-year-old female comes in today with complaints of migraine headache. On exam patient has normal range of motion of extremities. No focal neural deficits. Skin is warm and dry. Respirations are even. Vital signs are normal. Patient reports no change from prior headaches. No signs of severe illness or injury is noted. Differential diagnosis includes migraine headache, adverse drug effect, malingering. Patient was treated for migraine headache with headache cocktail of Reglan 10 mg, diphenhydramine 12-1/2 mg, ketorolac 15 mg, and 4 mg of dexamethasone IV. Patient was also given 500 mL of saline due to nausea and vomiting. Patient resolution of headache and was released to home. Patient was recommended to contact neurologist office in the morning regarding continuation of Depakote and consideration of treatment options for prophylaxis against migraines. Lab Data 12/21/22 15:08 12/21/22 15:08 Laboratory Results WBC 7.8 10^3/uL (4.0-10.0) 12/21/22 15:08 RBC 4.25 10^6/uL (4.1-5.3) 12/21/22 15:08 Hgb 13.1 g/dL (11.5-15.3) 12/21/22 15:08 Hct 39.6 % (37.0-47.0) 12/21/22 15:08 MCV 93.2 fl (81-99) 12/21/22 15:08 MCH 30.8 pg (28.0-34.0) 12/21/22 15:08 MCHC 33.1 g/dL (30.0-36.0) 12/21/22 15:08 RDW 11.4 % (12.1-15.1) L 12/21/22 15:08 Plt Count 197 10^3/cmm (130-400) 12/21/22 15:08 MPV 11.0 fL (7.4-10.4) H 12/21/22 15:08 Neut % (Auto) 67.7 % 12/21/22 15:08 Lymph % (Auto) 23.6 % 12/21/22 15:08 [place] % (Auto) 6.8 % 12/21/22 15:08 Eos % (Auto) 0.9 % 12/21/22 15:08 Baso % (Auto) 0.6 % 12/21/22 15:08 Neut # (Auto) 5.27 10^3/uL (1.8-7.7) 12/21/22 15:08 Lymph # (Auto) 1.8 10^3/uL (0.8-4.8) 12/21/22 15:08 [place] # (Auto) 0.5 10^3/uL (0.2-0.9) 12/21/22 15:08 Eos # (Auto) 0.1 10^3/uL (0.0-0.8) 12/21/22 15:08 Baso # (Auto) 0.1 10^3/uL (0.0-0.1) 12/21/22 15:08 Nucleated RBC % (auto) 0 % 12/21/22 15:08 Nucleated RBCs # 0.0 /100WBC 12/21/22 15:08 Sodium 138 mmol/L (136-145) 12/21/22 15:08 Potassium 4.2 mmol/L (3.5-5.1) 12/21/22 15:08 Chloride 101 mmol/L (98-107) 12/21/22 15:08 Carbon Dioxide 26 mmol/L (22-29) 12/21/22 15:08 Anion Gap 15.2 (5-19) 12/21/22 15:08 BUN 10 mg/dL (6-20) 12/21/22 15:08 Creatinine 0.7 mg/dL (0.5-0.9) 12/21/22 15:08 GFR Calculation 99.6 mL/min (90-130) 12/21/22 15:08 Glucose 91 mg/dL (65-115) 12/21/22 15:08 Calculated Osmolality 285 mOsm/kg (285-295) 12/21/22 15:08 Calcium 9.1 mg/dL (8.5-10.5) 12/21/22 15:08 Magnesium 2.1 mg/dL (1.7-2.3) 12/21/22 15:08 Total Bilirubin 1.0 mg/dL (0.15-1.2) 12/21/22 15:08 AST 19 U/L (0-32) 12/21/22 15:08 ALT 13 U/L (0-33) 12/21/22 15:08 Alkaline Phosphatase 57 U/L (35-105) 12/21/22 15:08 Total Protein 7.4 g/dL (6.6-8.7) 12/21/22 15:08 Albumin 4.6 g/dL (3.5-5.2) 12/21/22 15:08 Globulin 2.8 g/dL (1.3-4.6) 12/21/22 15:08 HCG, Qual Negative (Negative) 12/21/22 15:08 Urine Color Straw (Yellow) 12/21/22 14:01 Urine Appearance Clear (CLEAR) 12/21/22 14:01 Urine pH 8 (5-7) H 12/21/22 14:01 Ur Specific [place] 1.010 (1.005-1.030) 12/21/22 14:01 Urine Protein Neg (Negative) 12/21/22 14:01 Urine Glucose (UA) Norm (Normal) 12/21/22 14:01 Urine Ketones Negative (Negative) 12/21/22 14:01 Urine Blood Neg (Negative) 12/21/22 14:01 Urine Nitrate Negative (Negative) 12/21/22 14:01 Urine Bilirubin Neg (Negative) 12/21/22 14:01 Prot Sulfosalicylic Acd Negative (Negative) 12/21/22 14:01 Urine Urobilinogen Norm mg/dL (Negative) 12/21/22 14:01 Ur Leukocyte Esterase Negative (Negative) 12/21/22 14:01 Urine Opiates Screen Negative ng/mL (Negative) 12/21/22 14:01 Ur Barbiturates Screen Negative ng/mL (Negative) 12/21/22 14:01 Ur Phencyclidine Scrn Negative ng/mL (Negative) 12/21/22 14:01 Ur Amphetamines Screen Negative ng/mL (Negative) 12/21/22 14:01 U Benzodiazepines Scrn Negative ng/mL (Negative) 12/21/22 14:01 Urine Cocaine Screen Negative ng/mL (Negative) 12/21/22 14:01 U Marijuana (THC) Screen Negative ng/mL (Negative) 12/21/22 14:01 Discharge Plan Discharge Patient Disposition: Home Clinical Impression: Migraine Qualifiers: Migraine type: unspecified Status migrainosus presence: without status migrainosus Intractability: not intractable Qualified Code(s): G43.909 - Mi graine, unspecified, not intractable, without status migrainosus Condition: Stable Prescriptions: No Action cetirizine [Zyrtec] 10 mg tablet 10 mg PO DAILY PRN fluticasone propionate 50 mcg/actuation spray,suspension 1 spray intranasal DAILY Rx Instructions: administer into each nostril hydroxyzine HCl 10 mg tablet 10 mg PO TID PRN Chloraseptic Throat [place] 1.4 % aerosol,spray 4 spray mucous membrane Q4H divalproex [Depakote] 500 mg tablet,delayed release (DR/EC) 500 mg PO BID 30 Days Qty: 60 0RF omeprazole 20 mg capsule,delayed release(DR/EC) 20 mg PO DAILY Qty: 30 5RF budesonide-formoterol [Symbicort] 80-4.5 mcg/actuation HFA aerosol inhaler 1 inh inhalation BID Qty: 10.2 0RF albuterol sulfate [ProAir HFA] 90 mcg/actuation Hfa Aerosol Inhaler 2 puff INHALATION Q6H PRN (Reason: ASTHMA) Patient Comments: HAS NOT NEEDED THIS SINCE OCTOBER 2019 FOR HER ASTHMA Discharge Orders: Discharge ED (Routine); Ordered 12/21/22 Ordered By: Doni Dave Referrals: Savannah Betancourt, [facility] [Primary Care Provider] - Discharge Diet: Usual diet Discharge Activity: Increase activity as tolerated Patient Instructions: Migraine Headache (ED) Activity Restrictions/Additional Instructions: Home and rest. Just office in the morning. Drink plenty of water. Return to ED for new concerns or worsening symptoms. Coding Level of Care Code ED Projector Booth Operator for Zohaib Ball
[2022-12-21 19:12] VITALS: BP 113/77; PULSE 67; RESP 16; O2SAT 100
[2022-12-21] MEDS: sodium chloride 0.9% 500 ML 999 ML IV (19:35)
[2022-12-21] MEDS: ketorolac 30 mg/mL INJ 15 MG IVP (19:36)
[2022-12-21] MEDS: diphenhydrAMINE 50 mg/mL SDV 1mL 12.5 MG IVP (19:37)
[2022-12-21] MEDS: metoclopramide 5 mg/mL SDV 2 mL 10 MG IVP (19:39)
[2022-12-21] MEDS: dexamethasone 4 mg/mL INJ IVP (19:42)
[2022-12-21 20:30] VITALS: BP 112/78; PULSE 68; RESP 16; O2SAT 100
== END 2022-12-21 20:49 | disposition home or self-care (01) ==
PROVIDERS: Emergency Medicine; Emergency Provider Nurse Practitioner Family; PCP Nurse Practitioner Family
DX: G43.909 Migraine, unspecified, not intractable, without status migrainosus (principal)
CPT/HCPCS: 36415; 80053; 80306; 81003; 83735; 84703; 85025; 96374; 96375; 99284; J1100; J1200; J1885; J2765; J7040

== ENCOUNTER 2022-12-23 08:19 | Outpatient (CLI) | payer MEDICAID, SELFPAY ==
[2022-12-23 09:18] LABS: Valproic Acid Level 9.4 ug/mL (50-100)
== END 2022-12-23 08:20 | disposition home or self-care (01) ==
LOC: LAB 08:26
PROVIDERS: PCP Nurse Practitioner Family; Visit Provider Specialist
DX: Z51.81 Encounter for therapeutic drug level monitoring (principal); Z79.899 Other long term (current) drug therapy
CPT/HCPCS: 36415; 80164

== ENCOUNTER → 2023-03-28 11:09 | Outpatient (BNVA) | payer MEDICAID, SELFPAY | PROVIDERS: PCP Nurse Practitioner Family; Visit Provider Emergency Medicine | DX: R30.0 Dysuria (principal) | CPT/HCPCS: 81000 ==

== ENCOUNTER → 2023-04-05 12:16 | Outpatient (BNVA) | payer MEDICAID, SELFPAY | PROVIDERS: PCP Nurse Practitioner Family; Visit Provider Nurse Practitioner | DX: R39.9 Unspecified symptoms and signs involving the genitourinary system (principal) | CPT/HCPCS: 81000; 87086; 87491; 87591 ==

== ENCOUNTER → 2023-04-29 12:34 | Outpatient (BNVA) | payer MEDICAID, SELFPAY | PROVIDERS: PCP Nurse Practitioner Family; Visit Provider Nurse Practitioner | DX: R50.9 Fever, unspecified (principal); Z20.822 Contact with and (suspected) exposure to COVID-19 | CPT/HCPCS: 87426 ==

== ENCOUNTER 2023-05-13 09:03 | Emergency (ER) | payer MEDICAID, SELFPAY ==
[2023-05-13 09:04] VITALS: BP 128/85; PULSE 82; RESP 22; TEMP 36.8; O2SAT 100; BMI 20.3
--- NOTE | 2023-05-13 09:21 | XR_ITS ---
WS: [id number] EXAMINATION: XR chest 1V portable [id number] REASON FOR EXAM: chest pain/syncope COMPARISON: 11/09/2021 ORDER DATE: 05/13/2023 9:29 AM TECHNIQUE: A single, portable frontal chest x-ray was obtained. X-RAY FINDINGS: The lungs are clear. Pleural spaces are clear. No pleural effusions or pneumothorax. Cardiomediastinal silhouette is normal. No evidence for pulmonary edema. Soft tissue and osseous structures are unremarkable. No tubes or lines are present. IMPRESSION: Unremarkable frontal portable chest x-ray.
--- NOTE | 2023-05-13 09:21 | ED_ITS ---
HPI - Syncope General: Chief Complaint: Syncope Stated Complaint: syncope, sob, chest tightness Time Seen by Provider: 05/13/23 09:05 Source: patient Mode of arrival: EMS Limitations: no limitations History of Present Illness: Patient is a 27-year-old female with a fairly extensive past medical history here for complaints of what she states is a syncopal episode. Patient states she has had syncopal episodes starting in 2012. She states she has had multiple multiple work-ups for these including Holter monitors, head imaging, follow-up with neurology. Patient states she was seeing Dr. Vaca to felt some of these to be seizure-like activity. Patient did have a history of headache and blank stares . Patient does not feel like these are seizures. She has had EEGs and knows that a normal EEG does not effectively eliminate epilepsy diagnosis. She states earlier today she had an episode at home where she got tunnel vision, started seeing floaters, felt dizzy/lightheaded and then lowered herself to the ground. She states following this she was able to take her son to school but developed pain in the left side of her chest shortness of breath that concerned her. Patient also has had chronic issues with tremors and states she feels tremulous currently. Upon arrival to the ED her chest pain and shortness of breath has completely alleviated. MD complaint: loss of consciousness and felt faint Onset (ago): hour(s) -: minutes(s) Prodromal symptoms: vision changes and lightheaded Witnessed: No Context: at rest and standing up Injuries sustained associated with event: none Associated symptoms: Reports chest pain (subsided now) and headache(s); Deny abdominal pain, fever(s), lightheadedness or nausea Treatments prior to arrival: none Review of Systems Const: Denies: fever(s), chills, body aches, fatigue or malaise Eyes: Reports: change in vision (before episodes), blurry vision (before episodes) and floaters (before episodes); Denies: photophobia or seeing flashes ENMT: Denies: throat pain, odynophagia, nasal discharge, nasal congestion or sinus pain Card: Reports: chest pain (subsided now); Denies: palpitations, irregular heart rhythm, edema, swelling of feet/ankles, lightheadedness, syncope, pre-syncope, dyspnea on exertion, orthopnea, leg pain with exertion or acrocyanosis Resp: Reports: dyspnea (subsided now); Denies: productive cough, non-productive cough, wheezing, stridor, pain on inspiration, change in phlegm color, hemoptysis or chest congestion GI: Denies: abdominal pain, nausea, vomiting, heartburn or diarrhea : Denies: flank pain, difficulty voiding, dysuria, urinary frequency, urinary urgency or urinary hesitancy Musc: Denies: neck pain, back pain, extremity pain, extremity swelling or joint pain Skin/Breast: Denies: rash Neuro: Reports: headache(s) and other (tremor ); Denies: numbness in extremities, weakness in extremities or sensory changes PFSH ED PFSH: Medical History Anxiety and depression Asthma Depression Gitelman syndrome Grief Suicidal behavior with attempted self-injury Surgical History H/O tubal ligation Family History Father Bipolar disorder with depression Sister Bipolar disorder with depression Mother Anxiety Depression Social History Smoking and tobacco status: never smoked Alcohol intake: current Alcohol intake frequency: few times a week Alcohol type: beer, wine and hard liquor Desire information about alcohol rehabilitation?: Yes (USING IT TO COPE) Counseling given: Yes (PT NEEDS COPING SKILLS ) Last alcohol use date: 02/05/21 Other details last alcohol use: STARTED DRINKING ON 08/02/20 WHEN HER FATHER Substance/Drug Use: current Desire information about substance/drug rehabilitation?: No Counseling given: No Adopted: No Caregiver/support person: No Lives independently: Yes Household members: spouse, family and children Housing: House Marital status: Marital status details: HAVING MARITAL ISSUES Number of children: 3 Highest education level completed: High School Graduate service: No Current occupational status: unemployed 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 Pets and animals: No Leisure activites: fishing Sexually active: Yes How many partners: 1 Are you practicing safe sex: No ( ) Do you think of yourself as: Straight/Heterosexual Current gender identity: Female Special shivam needs: No Agree to transfusion: Yes Financial difficulty paying for basics: Hard Female Reproductive History: Date of last menstrual period: 04/21/23 Physical Exam Const: COMMON NORMALS: no acute distress, average body habitus, patient oriented x3, no limitations, healthy appearing, alert and well nourished ORIENTATION/CONSCIOUSNESS: Yes awake, Yes oriented to person, Yes oriented to place and Yes oriented to time OTHER: somewhat tremulous; she states she feels much better now than compared to earlier today HENMT: COMMON NORMALS: normocephalic and atraumatic HEAD & SCALP: normal to inspection, normocephalic and atraumatic FACE & SINUS: normal facial exam Eye: COMMON NORMALS: Equal, round and reactive pupils present and EOMs intact bilaterally GENERAL EYE: appearance normal, both eyes and all related structures and normal light reflex PUPIL: Yes Equal, round and reactive pupils present DIRECT OPHTHALMOSCOPY: Yes normal light reflex Neck/C-Spine: COMMON NORMALS: full ROM, no lymphadenopathy, supple and no meningeal signs Chest: COMMONS NORMALS: normal inspection of the chest Resp: COMMON NORMALS: normal respiratory effort and clear to auscultation bilaterally AUSCULTATION: clear to auscultation bilaterally Cardio: COMMON NORMALS: regular rate and regular rhythm RATE: regular rate RHYTHM: regular rhythm GI: COMMON NORMALS: Normal to inspection, nondistended, normoactive bowel sounds present, Soft to palpation, non-tender, No hepatosplenomegaly present and no masses PALPATION: Yes Soft to palpation and Yes No hepatosplenomegaly present : COMMON NORMALS: Yes no CVA tenderness BLADDER/KIDNEY EXAM: Yes no CVA tenderness Back/Pelvis: COMMON NORMALS: no CVA tenderness, thoracic and lumbar spine normal to inspection, no thoracic nor lumbar tenderness and thoraco-lumbar ROM normal Extremity: COMMON NORMALS: normal to inspection GENERAL: Yes normal exam except as noted Neuro: ELVI COMA SCALE: document GCS findings Elvi coma scale eye opening: Spontaneous [place] coma scale verbal response: Orientated Elvi coma scale motor response: Obey commands [place] coma scale total score: 15 COMMON NORMALS: patient oriented x3, CN's II-XII intact bilaterally, moves all extremities, no focal motor deficits, no sensory deficits noted and gait normal SENSORIUM/ORIENTATION: Yes alert, Yes oriented to person, Yes oriented to place and Yes oriented to time MENINGEAL SIGNS: Yes no meningeal signs Skin: COMMON NORMALS: no rashes or lesions noted GENERAL SKIN EXAM: no rashes or lesions noted Course Vital Signs: Vital signs: Vital Signs Temperature 98.2 F 05/13/23 09:04 Pulse Rate 66 05/13/23 10:14 Respiratory Rate 16 05/13/23 10:14 Blood Pressure 132/71 05/13/23 10:14 Pulse Oximetry 99 05/13/23 10:14 Oxygen Delivery Me thod Room Air 05/13/23 10:14 MDM - Syncope Medical Decision Making Patient has had similar symptoms for over a decade now. Unknown etiology. N eurology has suggested these could be seizure related. She has had cardiology evaluations/Holter monitors that were all normal. Patient states she is seeing Dr. Flores next month for a second opinion from a neurology standpoint. There is nothing further from an ED standpoint that needs to be done at this time. Lab Data 05/13/23 09:40 05/13/23 09:40 Laboratory Results WBC 6.43 10^3/uL (3.29-11.43) 05/13/23 09:40 RBC 4.53 10^6/uL (3.85-5.65) 05/13/23 09:40 Hgb 14.00 g/dL (11.27-16.99) 05/13/23 09:40 Hct 41.1 % (36-47) 05/13/23 09:40 MCV 90.7 fl (85-98) 05/13/23 09:40 MCH 30.9 pg (27-33) 05/13/23 09:40 MCHC 34.1 g/dL (30-55) 05/13/23 09:40 RDW 11.5 % (12.1-15.1) L 05/13/23 09:40 Plt Count 201 10^3/cmm (157-399) 05/13/23 09:40 MPV 11.0 fL (7.4-10.4) H 05/13/23 09:40 Neut % (Auto) 64.8 % 05/13/23 09:40 Lymph % (Auto) 23.8 % 05/13/23 09:40 [place] % (Auto) 7.0 % 05/13/23 09:40 Eos % (Auto) 3.3 % 05/13/23 09:40 Baso % (Auto) 0.8 % 05/13/23 09:40 Neut # (Auto) 4.17 10^3/uL (1.8-7.7) 05/13/23 09:40 Lymph # (Auto) 1.5 10^3/uL (0.8-4.8) 05/13/23 09:40 [place] # (Auto) 0.5 10^3/uL (0.2-0.9) 05/13/23 09:40 Eos # (Auto) 0.2 10^3/uL (0.0-0.8) 05/13/23 09:40 Baso # (Auto) 0.1 10^3/uL (0.0-0.1) 05/13/23 09:40 Nucleated RBC % (auto) 0 % 05/13/23 09:40 Nucleated RBCs # 0.0 /100WBC 05/13/23 09:40 Sodium 138 mmol/L (136-145) 05/13/23 09:40 Potassium 3.5 mmol/L (3.5-5.1) 05/13/23 09:40 Chloride 102 mmol/L (98-107) 05/13/23 09:40 Carbon Dioxide 25 mmol/L (22-29) 05/13/23 09:40 Anion Gap 14.5 (5-19) 05/13/23 09:40 BUN 13 mg/dL (6-20) 05/13/23 09:40 Creatinine 0.7 mg/dL (0.5-0.9) 05/13/23 09:40 GFR Calculation 99.6 mL/min (90-130) 05/13/23 09:40 Glucose 85 mg/dL (65-115) 05/13/23 09:40 Calculated Osmolality 285 mOsm/kg (285-295) 05/13/23 09:40 Calcium 9.5 mg/dL (8.5-10.5) 05/13/23 09:40 Total Bilirubin 2.6 mg/dL (0.15-1.2) H 05/13/23 09:40 AST 15 U/L (0-32) 05/13/23 09:40 ALT 12 U/L (0-33) 05/13/23 09:40 Alkaline Phosphatase 50 U/L (35-105) 05/13/23 09:40 Total Protein 7.7 g/dL (6.6-8.7) 05/13/23 09:40 Albumin 4.9 g/dL (3.5-5.2) 05/13/23 09:40 Globulin 2.8 g/dL (1.3-4.6) 05/13/23 09:40 HCG, Qual Negative (Negative) 05/13/23 09:40 No radiology studies performed this visit Discharge Plan Discharge Patient Disposition: Home Clinical Impression: Syncope Qualifiers: Syncope type: unspecified Qualified Code(s): R55 - Syncope and collapse Condition: Stable Prescriptions: No Action hydroxyzine HCl 10 mg tablet 10 mg PO TID PRN (Reason: Anxiety) ibuprofen 600 mg tablet 600 mg PO Q8H PRN (Reason: pain) Qty: 10 0RF budesonide-formoterol [Symbicort] 80-4.5 mcg/actuation HFA aerosol inhaler 1 inh inhalation BID Qty: 10.2 0RF albuterol sulfate [ProAir HFA] 90 mcg/actuation Hfa Aerosol Inhaler 2 puff INHALATION Q6H PRN (Reason: ASTHMA) Patient Comments: HAS NOT NEEDED THIS SINCE OCTOBER 2019 FOR HER ASTHMA Discharge Orders: Discharge ED (Routine); Ordered 05/13/23 Ordered By: Fanta Campbell Referrals: Savannah Betancourt FNP [Primary Care Provider] - Coding Level of Care Code ED Auto Dealership Porter for Zohaib Ball
[2023-05-13 10:00] LABS: Basophils # 0.1 10^3/uL (0.0-0.1); Basophils % 0.8 %; Eosinophils # 0.2 10^3/uL (0.0-0.8); Eosinophils % 3.3 %; Hematocrit 41.1 % (36-47); Lymphocytes # 1.5 10^3/uL (0.8-4.8); Lymphocytes % 23.8 %; Mean Corpuscular HGB Conc 34.1 g/dL (30-55); Mean Corpuscular Hemoglobin 30.9 pg (27-33); Mean Corpuscular Volume 90.7 fl (85-98); Monocytes # 0.5 10^3/uL (0.2-0.9); Neutrophils # 4.17 10^3/uL (1.8-7.7); Neutrophils % 64.8 %; Nucleated Red Blood Cells % 0 %; Platelet Count 201 10^3/cmm (157-399); Red Blood Count 4.53 10^6/uL (3.85-5.65); Red Cell Distribution Width 11.5 % (12.1-15.1); White Blood Count 6.43 10^3/uL (3.29-11.43)
--- NOTE | 2023-05-13 10:08 | ECG_ITS ---
[facility] Test Date: 2023-05-13 Pat Name: Lc Jarrell Department: Room: Gender: Female Ux Engineer: : 1995 Requested By: Fanta Campbell Order Number: [id number] Felicity MD: Mason Mcgovern M.D. Measurements Intervals [place] Rate: 81 P: 59 HI: 151 QRS: 87 QRSD: 110 T: 52 QT: 386 QTc: 450 Interpretive Statements SINUS RHYTHM WITH SINUS ARRHYTHMIA INCOMPLETE RIGHT BUNDLE BRANCH BLOCK [90+ ms QRS DURATION, TERMINAL R IN V1/V2, 40+ ms S IN I/aVL/V4/V5/V6] Compared to ECG 11/09/2021 17:49:30 Sinus tachycardia no longer present Electronically Signed On 05-13-2023 15:55:30 CDT by Mason Mcgovern M.D. [id number]
[2023-05-13 10:09] LABS: HCG, Serum Qual Negative (Negative)
[2023-05-13 10:14] VITALS: BP 132/71; PULSE 66; RESP 16; O2SAT 99
[2023-05-13 10:16] LABS: Alanine Aminotransferase 12 U/L (0-33); Albumin Level 4.9 g/dL (3.5-5.2); Alkaline Phosphatase 50 U/L (35-105); Anion Gap 14.5 (5-19); Aspartate Amino Transferase 15 U/L (0-32); Blood Urea Nitrogen 13 mg/dL (6-20); Calcium 9.5 mg/dL (8.5-10.5); Carbon Dioxide 25 mmol/L (22-29); Chloride 102 mmol/L (98-107); Globulin 2.8 g/dL (1.3-4.6); Glomerular Filtration Rate 99.6 mL/min (90-130); Glucose 85 mg/dL (65-115); Osmolality Calculated 285 mOsm/kg (285-295); Potassium 3.5 mmol/L (3.5-5.1); Sodium 138 mmol/L (136-145); Total Bilirubin 2.6 mg/dL (0.15-1.2); Total Protein 7.7 g/dL (6.6-8.7)
[2023-05-13 10:52] VITALS: BP 132/71; PULSE 66; RESP 16; O2SAT 99
[2023-05-13 10:54] LABS: Add Urine Microscopic? YES; Bilirubin Urine Neg (Negative); Blood Urine Neg (Negative); Glucose Urine UA Norm (Normal); Ketones Urine Negative (Negative); Leukocyte Esterase Urine Negative (Negative); Nitrate Urine Negative (Negative); Protein Urine Neg (Negative); Specific Gravity, Urine 1.015 (1.005-1.030); Urine Appearance SL Hazy (CLEAR); Urine Color Yellow (Yellow); Urobilinogen Urine Norm (Negative); pH Urine 8 (5-7)
[2023-05-13 10:58] LABS: Add Urine Culture? No
== END 2023-05-13 10:55 | disposition home or self-care (01) ==
PROVIDERS: Emergency Provider Physician Assistant; PCP Nurse Practitioner Family
DX: R55 Syncope and collapse (principal)
CPT/HCPCS: 36415; 71045; 80053; 81001; 84703; 85025; 93005; 99285

== ENCOUNTER → 2023-07-08 12:04 | Outpatient (BNVA) | payer MEDICAID, SELFPAY | PROVIDERS: PCP Nurse Practitioner Family; Visit Provider Specialist | DX: G43.019 Migraine without aura, intractable, without status migrainosus (principal); R56.9 Unspecified convulsions; K29.70 Gastritis, unspecified, without bleeding | CPT/HCPCS: 36415; 84439; 84443 ==

== ENCOUNTER 2023-09-14 09:43 | Outpatient (CLI) | payer MEDICAID, SELFPAY ==
--- NOTE | 2023-09-14 09:48 | US_ITS ---
WS: [id number] ULTRASOUND RIGHT BREAST HISTORY: BREAST MASS/LUMP COMPARISON: 12/23/2021 TECHNIQUE: 2-D and Doppler. Palpable area directed by the patient at 10:00 corresponds to a benign lymph node measuring 1.2 x 0.8 x 0.5 cm. This lymph node was also noted on the prior ultrasound from 12/23/2021 with minimal increas e in size. IMPRESSION: US/US breast RT limited* [id number] BI-RADS: 2-Benign FOLLOW-UP: See Report Benign lymph node RIGHT breast corresponds to the palpable abnormality. No cameron tional imaging necessary.
== END 2023-09-14 09:44 | disposition home or self-care (01) ==
LOC: RAD 09:44
PROVIDERS: PCP Family Medicine; Visit Provider Family Medicine
DX: N63.11 Unspecified lump in the right breast, upper outer quadrant (principal)
CPT/HCPCS: 76642

== ENCOUNTER → 2023-09-30 13:27 | Outpatient (BNVA) | payer MEDICAID, SELFPAY | PROVIDERS: PCP Family Medicine; Referring Provider Family Medicine; Visit Provider Internal Medicine | DX: R07.9 Chest pain, unspecified (principal); R00.0 Tachycardia, unspecified; R00.1 Bradycardia, unspecified | CPT/HCPCS: 93005; 93270 ==

== ENCOUNTER 2023-10-06 11:28 | Outpatient (CLI) | payer MEDICAID, SELFPAY ==
--- NOTE | 2023-10-06 | ECG_ITS ---
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 Interpretive Statements NAME OF STUDY: TREADMILL STRESS TEST INDICATION: [CP/SOB/Syncope] EXERCISE DATA: The patient was exercised by Venu protocol. Baseline heart rate was 76 beats per minute. Baseline blood pressure was 130/68 millimeters of mercury. Maximal predicted heart rate was 192 beats per minute. Maximum heart rate achieved was 172 which was 89% of the maximum predicted heart rate. Maximum blood pressure was 161/61 millimeters of mercury. Total exercise time was 9 minutes and 44 seconds. Maximum METs achieved was 13.5. The reason for ending the test was maximal effort achieved. The patient complained of shortness of breath and dizziness during the stress test, which then resolved at the end of the test. ELECTROCARDIOGRAM: BASELINE: Showed sinus rhythm, normal axis, no significant ST-T changes at the baseline noted. [] EXERCISE: At the peak exercise level, [] No significant ST-T changes suggestive of ischemia noted. [] RECOVERY: During the recovery period, heart rate dropped appropriately. No significant ST-T changes in the recovery suggestive of ischemia noted. [] CONCLUSION: 1. Exercise capacity is excellent. 2. Heart rate response was appropriate 3. Blood pressure response was appropriate 4. Symptoms not suggestive of ischemia. 5. Stress test is negative for ischemia Electronically Signed On 10-19-2023 9:25:47 CDT by John Gomes M.D. [id number]
[2023-10-06 11:33] VITALS: BP 139/68; PULSE 100; BMI 20.3
== END 2023-10-06 11:29 | disposition home or self-care (01) ==
PROVIDERS: PCP Family Medicine; Visit Provider Internal Medicine
DX: R07.9 Chest pain, unspecified (principal); R06.02 Shortness of breath
CPT/HCPCS: 93017

== ENCOUNTER 2023-11-04 09:20 | Outpatient (CLI) | payer MEDICAID, SELFPAY ==
--- NOTE | 2023-11-04 09:30 | MR_ITS ---
WS: [id number] MRI BRAIN WITH AND WITHOUT CONTRAST HISTORY: R56.9 - Unspecified convulsions COMPARISON: 11/10/2021 TECHNIQUE: Multiplanar imaging performed through the brain with MultiHance 13 ml's IV. No acute infarcts are seen. Reed-white matter differentiation is well preserved. Normal temporal lobe hippocampal formations. No susceptibility artifacts or prior lacunar infarcts. Ventricles and extra-axial spaces are normal. Clivus and pituitary gland are normal. Visualized posterior fossa and brainstem are also normal. Postcontrast images are negative for masses or vascular malformations. No leptomeningeal enhancement. Dural venous sinuses are normal. Paranasal sinuses: Well aerated with no significant disease. Mastoid air cells: Normal. Calvarium and scalp: Normal. IMPRESSION: 1. Normal MRI brain with contrast. 2. No masses or abnormal enhancement. 3. Normal hippocampal formations.
[2023-11-04] MEDS: gadobenate dimeglumine 20 mL vial IV (10:28)
== END 2023-11-04 09:21 | disposition home or self-care (01) ==
LOC: RAD 09:21
PROVIDERS: PCP Family Medicine; Visit Provider Specialist
DX: R56.9 Unspecified convulsions (principal)
CPT/HCPCS: 70553; A9577

== ENCOUNTER → 2024-01-28 13:28 | Outpatient (BNVA) | payer MEDICAID, SELFPAY | PROVIDERS: PCP Family Medicine; Visit Provider Specialist | DX: R56.9 Unspecified convulsions; K29.70 Gastritis, unspecified, without bleeding; R55 Syncope and collapse; R29.90 Unspecified symptoms and signs involving the nervous system; R07.9 Chest pain, unspecified; R00.2 Palpitations; E83.42 Hypomagnesemia; E87.6 Hypokalemia; G43.119 Migraine with aura, intractable, without status migrainosus | CPT/HCPCS: 99213; 99214 ==

== ENCOUNTER 2024-05-21 17:52 | Emergency (ER) | payer MEDICAID, SELFPAY ==
[2024-05-21 17:55] VITALS: BP 112/74; PULSE 87; RESP 15; TEMP 36.6; O2SAT 100; BMI 20.7
--- NOTE | 2024-05-21 18:20 | CTR_ITS ---
PROCEDURE INFORMATION: Exam: CT Head Without Contrast Exam date and time: 05/21/2024 6:30 PM Age: 28 years old Clinical indication: Pain; Headache not specified TECHNIQUE: Imaging protocol: Computed tomography of the head without contrast. Axial, coronal and sagittal reformatted images were created and reviewed. Radiation optimization: All CT scans at this facility use at least one of these dose optimization techniques: automated exposure control; mA and/or kV adjustment per patient size (includes targeted exams where dose is matched to clinical indication); or iterative reconstruction. COMPARISON: MR head wo/w con [id number] 11/04/2023 9:42 AM RADIATION DOSE METRICS: Total DLP (mGy-cm): 988.48 FINDINGS: Brain: No CT evidence of acute intracranial hemorrhage or acute territorial infarction. No significant mass effect or midline shift. Basal cisterns patent. Cerebral ventricles: Normal in size and configuration. Paranasal sinuses: Unremarkable. No fluid levels. Mastoid air cells: Grossly unremarkable. Bones: Unremarkable. No acute fracture. Soft tissues: Grossly unremarkable. CT/CT head wo con* [id number] IMPRESSION: No CT evidence of acute intracranial pathology.
[2024-05-21] MEDS: prochlorperazine 10 mg/2 mL Inj 5 MG IVP (18:41)
[2024-05-21 18:46] VITALS: BP 115/75; PULSE 83; O2SAT 98
[2024-05-21 19:02] LABS: Basophils # 0.1 10^3/uL (0.0-0.1); Basophils % 0.8 %; Eosinophils # 0.3 10^3/uL (0.0-0.8); Eosinophils % 3.5 %; Hematocrit 38.5 % (36-47); Lymphocytes # 2.3 10^3/uL (0.8-4.8); Lymphocytes % 25.8 %; Mean Corpuscular HGB Conc 34.3 g/dL (30-55); Mean Corpuscular Hemoglobin 32.5 pg (27-33); Mean Corpuscular Volume 94.8 fl (85-98); Mean Platelet Volume 10.8 fL (7.4-10.4); Monocytes # 0.7 10^3/uL (0.2-0.9); Monocytes % 8.1 %; Neutrophils # 5.38 10^3/uL (1.8-7.7); Neutrophils % 61.6 %; Nucleated Red Blood Cells % 0 %; Platelet Count 237 10^3/cmm (157-399); Red Blood Count 4.06 10^6/uL (3.85-5.65); Red Cell Distribution Width 11.4 % (12.1-15.1); White Blood Count 8.75 10^3/uL (3.29-11.43)
[2024-05-21 19:30] LABS: Alanine Aminotransferase 14 U/L (0-33); Albumin Level 4.2 g/dL (3.5-5.2); Alkaline Phosphatase 48 U/L (35-105); Anion Gap 12.5 (5-19); Aspartate Amino Transferase 16 U/L (0-32); Blood Urea Nitrogen 9 mg/dL (6-20); Calcium 8.7 mg/dL (8.5-10.5); Carbon Dioxide 25 mmol/L (22-29); Chloride 106 mmol/L (98-107); Creatinine Clr Calc Pharmacy 106.6699; Globulin 2.6 g/dL (1.3-4.6); Glomerular Filtration Rate 84.8 mL/min (90-130); Glucose 94 mg/dL (65-115); Osmolality Calculated 288 mOsm/kg (285-295); Potassium 3.5 mmol/L (3.5-5.1); Sodium 140 mmol/L (136-145); Total Bilirubin 1.6 mg/dL (0.15-1.2); Total Protein 6.8 g/dL (6.6-8.7)
[2024-05-21 20:09] VITALS: BP 180/70; PULSE 76; RESP 18; O2SAT 99
--- NOTE | 2024-05-21 20:21 | ED_ITS ---
HPI - General Adult 2 General: Chief complaint: General Medical Stated complaint: tremors Time Seen by Provider: 05/21/24 17:55 History of Present Illness: This patient is a 28-year-old white female who presents to the emergency department with shaking and a headache. Patient states she was at dinner with her family and looked up at a fan that was spinning in the restaurant which triggered a migraine. She has a headache behind her right eye. She also started shaking. She went home and took her migraine medication without any relief. Associated symptoms: Reports headache(s) Related Data Home Medications Medication Instructions Recorded Confirmed albuterol sulfate 90 mcg/actuation 2 puff inhalation Q6H PRN ASTHMA 02/06/21 04/27/24 aerosol inhaler (ProAir HFA) hydroxyzine HCl 10 mg tablet 10 mg PO TID PRN Anxiety 12/08/22 04/27/24 fluticasone propionate 50 intranasal 01/28/24 04/27/24 mcg/actuation nasal spray,suspension omeprazole 40 mg capsule,delayed mg PO 01/28/24 04/27/24 release Previous Rx's Medication Instructions Recorded budesonide-formoterol HFA 80 1 inh inhalation BID #10.2 grams 05/18/22 mcg-4.5 mcg/actuation aerosol inhaler (Symbicort) ibuprofen 600 mg tablet 600 mg PO Q8H PRN pain #10 tabs 04/29/23 ubrogepant 100 mg tablet (Ubrelvy) 100 mg PO ONCE #10 tabs 01/28/24 rimegepant 75 mg disintegrating 75 mg PO DAILY PRN migraine 02/07/24 tablet (Nurtec ODT) headache #16 tabs buspirone 10 mg tablet 10 mg PO BID #60 tabs 03/14/24 sertraline 50 mg tablet (Zoloft) 50 mg PO DAILY #30 tabs 03/14/24 propranolol 10 mg tablet See Rx Instructions .Route 04/11/24 .COMPLEX #60 tabs Allergies Allergy/AdvReac Type Severity Reaction Status Date / Time amoxicillin Allergy Unknown ALGY-Hives Verified 05/21/24 18:03 Penicillins Allergy ALGY-Hives Verified 05/21/24 18:03 Review of Systems 2 General: Reports: 10 or more systems reviewed and unremarkable except in HPI and below Neuro: Reports: headache(s) and other (Tremors) PFSH ED 2 PFSH: Medical History Psychiatric care Gitelman syndrome Asthma Suicidal behavior with attempted self-injury Anxiety and depression Grief Depression Surgical History H/O tubal ligation Family History Father Bipolar disorder with depression Sister Bipolar disorder with depression Mother Anxiety Depression Social History Smoking and tobacco/nicotine status: current every day tobacco/nicotine user (vape) Alcohol intake: current Alcohol intake frequency: few times a week Alcohol type: beer, wine and hard liquor Substance/Drug Use: current Adopted: No Caregiver/support person: No Lives independently: Yes Household members: spouse, family and children Housing: House Marital status: Marital status details: HAVING MARITAL ISSUES Number of children: 3 Highest education level completed: High School Graduate service: No Current occupational status: unemployed 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 Pets and animals: No Leisure activites: fishing Sexually active: Yes How many partners: 1 Are you practicing safe sex: No ( ) Do you think of yourself as: Straight/Heterosexual Current gender identity: Female Special shivam needs: No Agree to transfusion: Yes Physical Exam 2 Const: COMMON NORMALS: patient oriented x3 and no limitations GENERAL APPEARANCE: cooperative and in distress (mild) HENMT: COMMON NORMALS: normocephalic, atraumatic, Normal nasal mucous membranes and turbinates present, moist oral mucous membranes and oropharynx normal HEAD & SCALP: normal to inspection, normocephalic and atraumatic F NATHANIEL & SINUS: normal facial exam NOSE: Normal nasal mucous membranes and turbinates present Eye: COMMON NORMALS: Equal, round and reactive pupils present, EOMs intact bilaterally and conjunctivae normal GENERAL EYE: appearance normal, both eyes and all related structures CONJUNCTIVA: Yes conjunctivae normal PUPIL: Yes Equal, round and reactive pupils present Neck/C-Spine: COMMON NORMALS: supple and no JVD Chest: COMMONS NORMALS: normal inspection of the chest Resp: COMMON NORMALS: normal respiratory effort and clear to auscultation bilaterally AUSCULTATION: clear to auscultation bilaterally Cardio: COMMON NORMALS: no JVD, regular rate, regular rhythm, No gallops present (Cardio), No murmurs present (Cardio) and No rub (Cardio) RATE: r egular rate RHYTHM: regular rhythm GI: COMMON NORMALS: Normal to inspection, nondistended, normoactive bowel sounds present, Soft to palpation and non-tender AUSCULTATION: Yes normoactive bowel sounds PALPATION: Yes Soft to palpation : COMMON NORMALS: Yes no CVA tenderness BLADDER/KIDNEY EXAM: Yes no CVA tenderness Back/Pelvis: COMMON NORMALS: no CVA tenderness and thoracic and lumbar spine normal to inspection Extremity: COMMON NORMALS: normal to inspection Neuro: COMMON NORMALS: patient oriented x3 and CN's II-XII intact bilaterally Psych: COMMON NORMALS: mental status grossly normal, Normal thought process present and cooperative THOUGHT PROCESS: Normal thought process present Skin: COMMON NORMALS: no rashes or lesions noted, turgor normal and no jaundice GENERAL SKIN EXAM: no rashes or lesions noted and turgor normal Course 2 Vital Signs: Vital signs: Vital Signs Temperature 97.9 F 05/21/24 17:55 Pulse Rate 76 05/21/24 20:09 Respiratory Rate 18 05/21/24 20:09 Blood Pressure 180/70 05/21/24 20:09 Pulse Oximetry 99 05/21/24 20:09 Oxygen Delivery Me thod Room Air 05/21/24 18:46 MDM - General Adult Medical Decision Making Head CT was read by the radiologist as normal. CBC and CMP were normal. Patient was given 5 mg of Compazine IV which to help with the shaking but she continues to have headache. We then gave her 0.5 of Dilaudid IV. Patient was discharged in stable condition instructed to follow-up with her primary care physician and/or neurologist for ongoing management of her migraines. Lab Data 05/21/24 18:57 05/21/24 18:57 Laboratory Results WBC 8.75 10^3/uL (3.29-11.43) 05/21/24 18:57 RBC 4.06 10^6/uL (3.85-5.65) 05/21/24 18:57 Hgb 13.20 g/dL (11.27-16.99) 05/21/24 18:57 Hct 38.5 % (36-47) 05/21/24 18:57 MCV 94.8 fl (85-98) 05/21/24 18:57 MCH 32.5 pg (27-33) 05/21/24 18:57 MCHC 34.3 g/dL (30-55) 05/21/24 18:57 RDW 11.4 % (12.1-15.1) L 05/21/24 18:57 Plt Count 237 10^3/cmm (157-399) 05/21/24 18:57 MPV 10.8 fL (7.4-10.4) H 05/21/24 18:57 Neut % (Auto) 61.6 % 05/21/24 18:57 Lymph % (Auto) 25.8 % 05/21/24 18:57 [place] % (Auto) 8.1 % 05/21/24 18:57 Eos % (Auto) 3.5 % 05/21/24 18:57 Baso % (Auto) 0.8 % 05/21/24 18:57 Neut # (Auto) 5.38 10^3/uL (1.8-7.7) 05/21/24 18:57 Lymph # (Auto) 2.3 10^3/uL (0.8-4.8) 05/21/24 18:57 [place] # (Auto) 0.7 10^3/uL (0.2-0.9) 05/21/24 18:57 Eos # (Auto) 0.3 10^3/uL (0.0-0.8) 05/21/24 18:57 Baso # (Auto) 0.1 10^3/uL (0.0-0.1) 05/21/24 18:57 Nucleated RBC % (auto) 0 % 05/21/24 18:57 Nucleated RBCs # 0.0 /100WBC 05/21/24 18:57 Sodium 140 mmol/L (136-145) 05/21/24 18:57 Potassium 3.5 mmol/L (3.5-5.1) 05/21/24 18:57 Chloride 106 mmol/L (98-107) 05/21/24 18:57 Carbon Dioxide 25 mmol/L (22-29) 05/21/24 18:57 Anion Gap 12.5 (5-19) 05/21/24 18:57 BUN 9 mg/dL (6-20) 05/21/24 18:57 Creatinine 0.8 mg/dL (0.5-0.9) 05/21/24 18:57 GFR Calculation 84.8 mL/min (90-130) L 05/21/24 18:57 Glucose 94 mg/dL (65-115) 05/21/24 18:57 Calculated Osmolality 288 mOsm/kg (285-295) 05/21/24 18:57 Calcium 8.7 mg/dL (8.5-10.5) 05/21/24 18:57 Total Bilirubin 1.6 mg/dL (0.15-1.2) H 05/21/24 18:57 AST 16 U/L (0-32) 05/21/24 18:57 ALT 14 U/L (0-33) 05/21/24 18:57 Alkaline Phosphatase 48 U/L (35-105) 05/21/24 18:57 Total Protein 6.8 g/dL (6.6-8.7) 05/21/24 18:57 Albumin 4.2 g/dL (3.5-5.2) 05/21/24 18:57 Globulin 2.6 g/dL (1.3-4.6) 05/21/24 18:57 All radiology interpretation(s) finalized by discharge Discharge Plan Discharge Patient Disposition: Home Clinical Impression: Migraine Qualifiers: Migraine type: unspecified Status migrainosus presence: without status migrainosus Intractability: not intractable Qualified Code(s): G43.909 - Migraine, unspecified, not intractable, without status migrainosus Condition: Stable Prescriptions: No Action hydroxyzine HCl 10 mg tablet 10 mg PO TID PRN (Reason: Anxiety) ibuprofen 600 mg tablet 600 mg PO Q8H PRN (Reason: pain) Qty: 10 0RF omeprazole 40 mg capsule,delayed release(DR/EC) PO fluticasone propionate 50 mcg/actuation spray,suspension intranasal Ubrelvy 100 mg tablet 100 mg PO ONCE Qty: 10 3RF Rx Instructions: take when headache or dizziness starts sertraline [Zoloft] 50 mg tablet 50 mg PO DAILY Qty: 30 2RF Rx Instructions: Take 1/2 tab daily for first 4 days then full tab daily buspirone 10 mg tablet 10 mg PO BID Qty: 60 2RF budesonide-formoterol [Symbicort] 80-4.5 mcg/actuation HFA aerosol inhaler 1 inh inhalation BID Qty: 10.2 0RF Nurtec ODT 75 mg tablet,disintegrating 75 mg PO DAILY PRN (Reason: migraine headache) Qty: 16 3RF Rx Instructions: Take 1 tab at onset of headache. Max - One tablet per 24 hours propranolol 10 mg tablet See Rx Instructions .ROUTE .COMPLEX Qty: 60 3RF Dose Instruction: Take 1 tablet by mouth twice daily Rx Instructions: Take 1 tablet by mouth twice daily albuterol sulfate [ProAir HFA] 90 mcg/actuation Hfa Aerosol Inhaler 2 puff INHALATION Q6H PRN (Reason: ASTHMA) Patient Comments: HAS NOT NEEDED THIS SINCE OCTOBER 2019 FOR HER ASTHMA Discharge Orders: Discharge ED (Routine); Ordered 05/21/24 Ordered By: Ricco Zelaya Referrals: Shad Velasquez MD [Primary Care Provider] - Patient Instructions: Pain Management Coding Level of Care Code ED [employer] for [employer]
== END 2024-05-21 20:10 | disposition home or self-care (01) ==
PROVIDERS: Emergency Provider Emergency Medicine; PCP Family Medicine
DX: G43.909 Migraine, unspecified, not intractable, without status migrainosus (principal); F17.290 Nicotine dependence, other tobacco product, uncomplicated
CPT/HCPCS: 36415; 70450; 80053; 85025; 96374; 99285; J0780

== ENCOUNTER → 2024-06-25 11:26 | Outpatient (BNVA) | payer OTHER, SELFPAY | PROVIDERS: PCP Family Medicine | DX: R39.9 Unspecified symptoms and signs involving the genitourinary system (principal) | CPT/HCPCS: 81000 ==